=== PATIENT | male | born 1955 | race African-American/Black ===

== ENCOUNTER → 2016-07-15 | Outpatient (CLI) | payer BC, OTHER ==
[~2016-07-15] MED LIST: REGADENOSON INJ 0.4 MG/5 ML DISP.SYRIN IV ONE
--- NOTE | 2016-07-15 18:39 | DRAGON STRESS TEST REPORT ---
INTRAVENOUS LEXISCAN CARDIOLITE STRESS TEST USING SINGLE PHOTON EMMISION COMPUTERIZED TOMOGRAPHIC. DATE OF PROCEDURE: July 15, 2016 INDICATION : Chest pain CARDIAC RISK FACTORS: Diabetes, hypertension RESTING EKG: Sinus rhythm, no Baseline ST segment changes STRESS EKG: No significant changes noted with LexiScan bolus REASON FOR TERMINATION: Protocol. PROCEDURE REPORT: Baseline heart rate 67 beats per minute with blood pressure of on 135/86. Patient had no significant complaints. Heart rate at 2 minutes post bolus 76 with a blood pressure of 144/78. 3 minutes post bolus heart rate 69 with blood pressure of 141/80. No significant EKG changes were noted. Patient had no significant complaints during the procedure or postprocedure. CONCLUSIONS: Normal EKG and hemodynamic response to IV LexiScan. NUCLEAR DATA: At rest the patient was given 15.81 millicuries of technetium 99 sestamibi injected intravenously. As per protocol rest gated SPECT images were obtained. Subsequently the patient was given intravenous LexiScan at a dose of 0.4 mg in 5 mL intravenously, followed by flush with normal saline. Subsequently the stress dose of 45.6 millicuries of technetium 99 sestamibi was injected intravenously. As per protocol stress gated images were obtained. NUCLEAR INTERPRETATION: Both raw and processed data were used for interpretation. Visual, qualitative, computer-generated quantitative data was used. There was good myocardial uptake of technetium compound. Motion artifact and soft tissue attenuations were noted. Increased visceral uptake was noted. No definitive areas of transient perfusion defect noted. No definitive areas of fixed perfusion defect or scars noted. EKG gated imaging showed LV EF at 65 %, rest and stress gated EF similar visually. T. I D. ratio was 0.95. Lung heart ratio noted to be within normal limits 0.30. No significant extracardiac and abnormal radiotracer activities were noted. RV free wall uptake was noted to be mildly increased. IMPRESSION: Also refer to comments under nuclear interpretation. Also test results needs to be interpreted in the context of pretest probability. 1. There is no definitive scintigraphic evidence of LexiScan induced myocardial ischemia. 2. There is no definitive scintigraphic evidence of myocardial infarction/scar. 3. EKG gated imaging shows left ejection fraction of approximately 65 %. 4. Clinical correlation requested as occasionally single vessel disease or balanced ischemia could be missed. In approximately 10% of the cases Lexiscan may not cause adequate vasodilatory stress. RECOMMENDATIONS: Aggressive risk factor modification, medical therapy. Clinical correlation with echocardiogram derived ejection fraction. Inability to exercise by itself can lead to increased cardiovascular event risks. Consider cardiology consultation if clinically indicated. I AM AVAILABLE FOR CARDIOLOGY CONSULTATION AND FOLLOWUP IF REQUESTED BY PMD Marianela Buckner M.D., [facility] Consumer Services Consultant scale attendant, Board certified in cardiovascular diseases, Nuclear cardiology, Echocardiography Cardiac CT and cardiac MRI Ph. [phone] [facility]
== END ==
LOC: RAD 06:50
PROVIDERS: ATTEND Specialist
DX: Z01.810 Encounter for preprocedural cardiovascular examination (principal); R07.9 Chest pain, unspecified
CPT/HCPCS: 93017; 78452; A9500; J2785; Q9969

== ENCOUNTER → 2016-08-26 | Outpatient (CLI) | payer BC, OTHER ==
[2016-08-26 10:59] LABS: ABSOLUTE BASOPHILS # (AUTO) 0.1 10^3/uL (0.0-0.2); ABSOLUTE EOSINOPHILS # (AUTO) 0.1 10^3/uL (0.0-0.6); ABSOLUTE LYMPHOCYTES (AUTO) 3.6 10^3/uL (0.5-4.7); ABSOLUTE MONOCYTES (AUTO) 0.8 10^3/uL (0.1-1.4); ABSOLUTE NEUT (AUTO) 3.2 10^3/uL (1.7-8.2); BASOPHILS % (AUTO) 0.9 % (0-2); EOSINOPHILS % (AUTO) 1.8 % (0-6); HEMATOCRIT 48.7 % (37.9-51.0); HEMOGLOBIN 16.1 g/dL (13.5-17.0); HGB HCT DIFFERENCE -0.4; LYMPHOCYTES % (AUTO) 45.5 % (13-45); MEAN CORPUSCULAR HEMOGLOBIN 27.3 pg (27.0-33.4); MEAN CORPUSCULAR VOLUME 83 fl (80-97); MONOCYTES % (AUTO) 10.7 % (3-13); RED BLOOD COUNT 5.88 10^6/uL (4.35-5.55); RED CELL DISTRIBUTION WIDTH 15.9 % (11.5-14.0); SEGMENTED NEUTROPHILS % (AUTO) 41.1 % (42-78); WHITE BLOOD COUNT 7.9 10^3/uL (4.0-10.5)
[2016-08-26 11:01] LABS: APPEARANCE,URINE CLEAR; BILIRUBIN,URINE NEGATIVE (NEGATIVE); GLUCOSE, URINE NEGATIVE (NEGATIVE); KETONES,URINE NEGATIVE (NEGATIVE); LEUKOCYTE ESTERASE,URINE NEGATIVE (NEGATIVE); NITRITE,URINE NEGATIVE (NEGATIVE); PROTEIN,URINE NEGATIVE (NEGATIVE); URINE SPECIFIC GRAVITY 1.017
[2016-08-26 11:21] LABS: ANION GAP 11 (5-19); BLOOD UREA NITROGEN 15 mg/dL (7-20); CALCIUM 9.9 mg/dL (8.4-10.2); CARBON DIOXIDE 26 mmol/L (22-30); CHLORIDE 104 mmol/L (98-107); CREATININE RESULT 0.92 mg/dL (0.52-1.25); GLUCOSE 135 mg/dL (75-110); POTASSIUM 4.4 mmol/L (3.6-5.0); SODIUM 141.3 mmol/L (137-145)
== END ==
LOC: OD 09:42
PROVIDERS: ATTEND Orthopaedic Surgery
DX: Z01.811 Encounter for preprocedural respiratory examination (principal); Z01.812 Encounter for preprocedural laboratory examination; Z01.818 Encounter for other preprocedural examination; Z79.899 Other long term (current) drug therapy; E11.9 Type 2 diabetes mellitus without complications
CPT/HCPCS: 36415; 71020; 80048; 81001; 83036; 85025

== ENCOUNTER 2016-09-28 07:43 | Inpatient (IN) | payer OTHER ==
[2016-09-17 13:32] LABS: HEMATOCRIT 47.5 % (37.9-51.0); HEMOGLOBIN 15.6 g/dL (13.5-17.0); HGB HCT DIFFERENCE -0.7; MEAN CORPUSCULAR HEMOGLOBIN 28.1 pg (27.0-33.4); MEAN CORPUSCULAR HGB CONC 32.9 g/dL (32.0-36.0); MEAN CORPUSCULAR VOLUME 85 fl (80-97); RED BLOOD COUNT 5.57 10^6/uL (4.35-5.55); WHITE BLOOD COUNT 9.9 10^3/uL (4.0-10.5)
[2016-09-17 13:37] LABS: APPEARANCE,URINE CLEAR; BILIRUBIN,URINE NEGATIVE (NEGATIVE); GLUCOSE, URINE NEGATIVE (NEGATIVE); KETONES,URINE NEGATIVE (NEGATIVE); LEUKOCYTE ESTERASE,URINE NEGATIVE (NEGATIVE); NITRITE,URINE NEGATIVE (NEGATIVE); PROTEIN,URINE NEGATIVE (NEGATIVE); URINE SPECIFIC GRAVITY 1.011
[2016-09-17 13:47] LABS: ANION GAP 17 (5-19); BLOOD UREA NITROGEN 16 mg/dL (7-20); CALCIUM 9.8 mg/dL (8.4-10.2); CARBON DIOXIDE 23 mmol/L (22-30); CHLORIDE 100 mmol/L (98-107); CREATININE RESULT 0.95 mg/dL (0.52-1.25); GLUCOSE 206 mg/dL (75-110); POTASSIUM 4.1 mmol/L (3.6-5.0); SODIUM 139.7 mmol/L (137-145)
--- NOTE | 2016-09-17 15:45 | EKG REPORT ---
SEVERITY:- ABNORMAL ECG - SINUS ARRHYTHMIA, RATE 50-65 PROBABLE INFERIOR INFARCT, AGE INDETERMINATE : Confirmed by: Yuliet Moya MD 17-Sep-2016 15:43:59
[~2016-09-28 07:43] MED LIST changes: +IBUPROFEN 800 MG/NS 250 ML IV PRN; +LACTATED RINGERS 1000 ML IV PRN; +LANSOPRAZOLE 15 MG TAB.RAP.DR PO PRN; +LIDOCAINE 0.5% INJ-PF (5 MG/ML) 50 ML SDV SUBCUT PRN; +OXYCODONE HCL SR 10 MG TABLET PO PRN; -REGADENOSON INJ 0.4 MG/5 ML DISP.SYRIN IV ONE; +SCOPOLAMINE HYDROBROMIDE 1.5 MG PATCH.TD72 TOP PRN
[2016-10-05] MEDS ORDERED: LANSOPRAZOLE 15 MG TAB.RAP.DR PO PRN (05:00)
[2016-10-05] MEDS ORDERED: SCOPOLAMINE HYDROBROMIDE 1.5 MG PATCH.TD72 TOP PRN (05:00)
[2016-10-05] MEDS ORDERED: VANCOMYCIN HCL 1,000 MG in DEXTROSE 5%-WATER 250 ML IV PRN (05:00)
[2016-10-05] MEDS ORDERED: LIDOCAINE 0.5% INJ-PF (5 MG/ML) 50 ML SDV SUBCUT PRN (05:00)
[2016-10-05] MEDS ORDERED: LACTATED RINGERS 1000 ML IV PRN (05:00)
[2016-10-05] MEDS ORDERED: OXYCODONE HCL SR 10 MG TABLET PO PRN (05:00)
[2016-10-05] MEDS ORDERED: BUPIVACAINE INJ/PF LIPOSOME/PF 266 MG/20 ML SDV IJ PRN (05:00)
[2016-10-05] MEDS ORDERED: IBUPROFEN 800 MG/NS 250 ML IV PRN ×2 (05:00)
[2016-10-05] MEDS ORDERED: CEFAZOLIN INJ 1 GM VIAL IV PRN (05:00)
[2016-10-05 06:17] LABS: PROTHROMBIN TIME 12.4 SEC (11.4-15.4)
[2016-10-05 06:18] LABS: PARTIAL THROMBOPLASTIN TIME 24.5 SEC (23.5-35.8)
[2016-10-05 06:36] LABS: POTASSIUM 4.3 mmol/L (3.6-5.0)
[2016-10-05] MEDS ORDERED: THROMBIN (BOVINE) 5000 UNIT EPITAXIS KIT ONE (06:46)
[2016-10-05] MEDS ORDERED: THROMBIN (BOVINE) TOPICAL 20000 UNIT VIAL ONE (06:46)
[2016-10-05] MEDS ORDERED: BUPIVACAINE INJ/PF LIPOSOME/PF 266 MG/20 ML SDV ONE (06:47)
[2016-10-05] MEDS ORDERED: FENTANYL CITRATE INJ/PF 100 MCG/2 ML AMPUL ONE (06:52)
[2016-10-05] MEDS ORDERED: ONDANSETRON HCL INJ/PF 4 MG/2 ML SDV ONE (06:52)
[2016-10-05] MEDS ORDERED: DEXAMETHASONE SOD PHOSPHATE INJ 4 MG/1 ML VIAL ONE (06:52)
[2016-10-05] MEDS ORDERED: MIDAZOLAM 2 MG/2 ML INJ ONE (06:52)
[2016-10-05] MEDS ORDERED: MORPHINE SULFATE 10 MG/ML INJ ONE (06:53)
[2016-10-05] MEDS ORDERED: TRANEXAMIC ACID INJ/PF 1,000 MG/10 ML SDV IV ONE (06:53)
[2016-10-05] MEDS ORDERED: PROPOFOL INJ 200 MG/20 ML VIAL IV ONE (06:53)
[2016-10-05] MEDS ORDERED: FENTANYL CITRATE INJ/PF 100 MCG/2 ML AMPUL IV PRN ×3 (08:13)
[2016-10-05] MEDS ORDERED: DIPHENHYDRAMINE HCL 50 MG/ML VIAL IV PRN ×2 (08:13→08:55)
[2016-10-05] MEDS ORDERED: MEPERIDINE HCL/PF INJ 25 MG/1 ML DISP.SYRIN IV PRN (08:13)
[2016-10-05] MEDS ORDERED: PROMETHAZINE HCL INJ 25 MG/1 ML VIAL IV PRN ×2 (08:13)
[2016-10-05] MEDS ORDERED: MORPHINE SULFATE 10 MG/ML INJ IV PRN ×3 (08:13→08:55)
--- NOTE | 2016-10-05 08:54 | Operative Report ---
Operative Report DATE OF SURGERY: 10/05/16 PREOPERATIVE DIAGNOSIS: Right knee arthritis OPERATION: Right knee arthroplasty SURGEON: RAIZA BELTRAN ANESTHESIA: Spinal TISSUE REMOVED OR ALTERED: Bone to pathology ESTIMATED BLOOD LOSS: 100 PROCEDURE: Implants used: Femur: Striker sanalon #7 CR femur Tibia:, Her 7 tibia Tibial liner:, 9 mm CS insert Patella: 38 mm oval patella Procedure with the patient supine on the operating table the right the limb is prepped and draped in a sterile fashion. The limb was elevated for exsanguination and the tourniquet inflated to 280 torr. A standard midline median parapatellar approach the knee is taken. Access is gained to the femoral canal through the intercondylar notch. Intramedullary alignment instrumentation used to resect 10 mm of distal femur in 5 of valgus. Sizing guide indicated a size 7 femur. Appropriate cutting jig is then used to fashion anterior posterior and chamfer cuts. A trial reduction femurs performed and this is judged to be adequate. Attention was next turned to the tibia. Using an extra medullary alignment system 9 millimeters was resected off the lateral tibial plateau. This is sized to a size 7 tibia. A trial reduction was now performed with a 7 femur and a 7 tibia using a 9 millimeters spacer. It is full extension and central patellofemoral tracking. The articular surface the patella was next resected using an oscillating saw. All trial implants were removed. Polymethylmethacrylate is mixed and used to cement the above implants in place. On adequate curing the cement excess cement was removed the tourniquet was deflated hemostasis obtained the wound is then closed in layers using interrupted Vicryl followed by isha. A sterile compressive dressing was applied and the patient returned to recovery room in satisfactory condition.
[2016-10-05] MEDS ORDERED: ACETAMINOPHEN 325 MG TABLET PO PRN (08:55)
[2016-10-05] MEDS ORDERED: RINGERS SOLUTION,LACTATED 1,000 ML IV PRN (08:55)
[2016-10-05] MEDS ORDERED: ONDANSETRON HCL INJ/PF 4 MG/2 ML SDV IV PRN (08:55)
[2016-10-05] MEDS ORDERED: MAG HYDROX/AL HYDROX/SIMETH SUSP 30 ML UDCUP PO PRN (08:55)
[2016-10-05] MEDS ORDERED: ONDANSETRON 4 MG TAB.RAPDIS PO PRN (08:55)
[2016-10-05] MEDS ORDERED: ZOLPIDEM TARTRATE 5 MG TABLET PO PRN (08:55)
[2016-10-05] MEDS ORDERED: DEXTROSE 50%-WATER SYRINGE 12.5 GM/25 ML DOSE IV PRN (09:28)
[2016-10-05] MEDS ORDERED: DEXTROSE 40% GEL 15 GM TUBE PO PRN (09:28)
[2016-10-05] MEDS ORDERED: GLUCAGON,HUMAN RECOMB 1 MG INJ IM PRN (09:28)
[2016-10-05] MEDS ORDERED: DEXTROSE 40% GEL 15 GM TUBE X 2 PO PRN (09:28)
[2016-10-05] MEDS ORDERED: INSULIN LISPRO 100 UNIT/ML 3 ML VIAL SUBCUT PRN (09:28)
[2016-10-05] MEDS ORDERED: DEXTROSE 50%-WATER SYRINGE 25 GM/50 ML DOSE IV PRN (09:28)
[2016-10-05] MEDS: MORPHINE SULFATE 10 MG/ML INJ IM PRN ×3 (11:58→18:57)
[2016-10-05] MEDS: OXYCODONE HCL IR 5 MG TABLET PO PRN (13:31)
--- NOTE | 2016-10-05 15:33 | PDOC CONSULTATION ---
Consultation Consult Date: 10/05/16 Attending physician:: RAIZA BELTRNA Consult reason:: Postoperative medical management History of Present Illness Admission Date/PCP: 10/05/16 05:14 ROSEANNE CONN History of Present Illness: DONALD BO is a 60 year old -[place]ag[place] male with a past medical history of atrial fibrillation, obesity, osteoarthritis coronary artery disease , hyperlipidemia, obstructive sleep apnea, and diabetes mellitus type II. The patient was admitted for right knee replacement. In the patient's extensive past medical history the hospitalist been consult did aid in management. The patient is currently lying in bed. The patient denies any nausea, vomiting , diarrhea, shortness of breath, dizziness, chest pain, heart palpitations, fevers, or chills. The patient does admit to pain in the operative knee. The patient has remained afebrile. Blood pressures have been in a good range. The patient voices no other concerns at this time. Past Medical History Cardiac Medical History: Reports: Atrial Fibrillation, Congestive Heart Failure - Diastolic dysfunction, Coronary Artery Disease, Myocardial Infarction - [place] 2011, Hyperlipidema, Hypertension Pulmonary Medical History: Reports: Bronchitis, Pneumonia, Sleep Apnea - uses CPAP, had throat/chin surgery d/t Sleep Apnea Endocrine Medical History: Reports: Diabetes Mellitus Type 2 Malignancy Medical History: GI Medical History: Reports: Gastroesophageal Reflux Disease, Hiatal Hernia Musculoskeltal Medical History: Reports: Arthritis Psychiatric Medical History: Reports: Depression, Post Traumatic Stress Disorder Past Surgical History Past Surgical History: Reports: Cardiac Catheterization, Coronary Stent - x2 2011, Orthopedic Surgery, Tonsillectomy - and adenoids Social History Information Source: Patient Occupation: Retired Lives with: Spouse/Significant other Smoking Status: Former Smoker Cigarettes Packs Per Day: 0.5 Frequency of Alcohol Use: None Hx Recreational Drug Use: No Drugs: None Hx Prescription Drug Abuse: No - Advance Directive Resuscitation Status: Full Code Surrogate healthcare decision maker:: His Elisabeth Bo Family History Family History: Reviewed & Not Pertinent, CAD, Other - Mother lived to be 94. Father 68 Parental Family History Reviewed: Yes Children Family History Reviewed: Yes Sibling(s) Family History Reviewed.: Yes Medication/Allergy Home Medications: Acetaminophen 500 mg PO DAILY PRN 09/15/16 Amlodipine Besylate 5 mg PO QPM 09/15/16 Atorvastatin Calcium [Lipitor 10 mg Tablet] 10 mg PO QHS 04/04/17 Hydrochlorothiazide 25 mg PO QPM 09/15/16 Lisinopril 20 mg PO QPM 09/15/16 Meloxicam [Mobic 15 mg Tablet] 15 mg PO DAILY PRN 09/15/16 Metformin HCl [Glucophage XR 500 mg Tablet] 500 mg PO QPM 09/15/16 Metoprolol Tartrate 75 mg PO QPM 09/15/16 Omeprazole 40 mg PO QPM 09/15/16 Tramadol HCl 50 mg PO DAILY PRN 09/15/16 Warfarin Sodium [Coumadin 7.5 mg Tablet] 7.5 mg PO QPM 09/15/16 Allergies/Adverse Reactions: typhoid vaccine [Typhoid Vaccine] Allergy (Severe, Verified 07/23/15 12:22) Seizures Review of Systems Constitutional: ABSENT: chills, fever(s), headache(s), weight gain, weight loss Eyes: ABSENT: visual disturbances Ears: ABSENT: hearing changes Cardiovascular: ABSENT: chest pain, dyspnea on exertion, edema, orthropnea, palpitations Respiratory: ABSENT: cough, hemoptysis Gastrointestinal: ABSENT: abdominal pain, constipation, diarrhea, hematemesis, hematochezia, nausea, vomiting Genitourinary: ABSENT: dysuria, hematuria Musculoskeletal: PRESENT: other - Knee pain. ABSENT: joint swelling Integumentary: ABSENT: rash, wounds Neurological: ABSENT: abnormal gait, abnormal speech, confusion, dizziness, focal weakness, syncope Psychiatric: ABSENT: anxiety, depression, homidical ideation, suicidal ideation Endocrine: ABSENT: cold intolerance, heat intolerance, polydipsia, polyuria Hematologic/Lymphatic: ABSENT: easy bleeding, easy bruising Physical Exam Vital Signs: Temp Pulse Resp BP Pulse Ox 97.4 F 61 16 111/81 97 10/05/16 13:10 10/05/16 13:10 10/05/16 13:10 10/05/16 13:10 10/05/16 13:10 Intake & Output 10/03/16 10/04/16 10/05/16 23:59 23:59 23:59 Intake Total 3458 Output Total 2450 Balance 1008 General appearance: PRESENT: no acute distress, cooperative, well-developed, well-nourished Head exam: PRESENT: atraumatic, normocephalic Eye exam: PRESENT: conjunctiva pink, EOMI, PERRLA. ABSENT: scleral icterus Ear exam: PRESENT: normal external ear exam Mouth exam: PRESENT: moist, tongue midline Neck exam: ABSENT: carotid bruit, JVD, lymphadenopathy, thyromegaly Respiratory exam: PRESENT: clear to auscultation dania, symmetrical, unlabored. ABSENT: rales, rhonchi, tachypnea, wheezes Cardiovascular exam: PRESENT: RRR. ABSENT: diastolic murmur, rubs, systolic murmur Pulses: PRESENT: normal dorsalis pedis pul Vascular exam: PRESENT: normal capillary refill GI/Abdominal exam: PRESENT: normal bowel sounds, soft. ABSENT: distended, guarding, mass, organolmegaly, rebound, tenderness Rectal exam: PRESENT: deferred Extremities exam: PRESENT: full ROM. ABSENT: calf tenderness, clubbing, pedal edema Neurological exam: PRESENT: alert, awake, oriented to person, oriented to place , oriented to time, oriented to situation, CN II-XII grossly intact. ABSENT: motor sensory deficit Psychiatric exam: PRESENT: appropriate affect, normal mood. ABSENT: homicidal ideation, suicidal ideation Skin exam: PRESENT: dry, intact, warm. ABSENT: cyanosis, rash Results Laboratory Results: 09/17/16 12:38 10/05/16 05:58 10/05/16 05:58 Potassium 4.3 Glucose 151 H Impressions: Knee X-Ray 10/05/16 08:57 IMPRESSION: Total knee arthroplasty in good position. Assessment & Plan - Diagnosis (1) S/P right knee arthroscopy Is this a current diagnosis for this admission?: YesPlan: As per orthopedics (2) Atrial fibrillation with RVR Is this a current diagnosis for this admission?: YesPlan: Resume the patient's home medications. The patient chose to go with warfarin as he did not feel comfortable taking Xarelto for his A. fib. Will discontinue Xarelto prophylaxis and transition back to warfarin. Will add a Lovenox bridge. (3) CAD (coronary artery disease) Qualifiers: Coronary Disease-Associated Artery/Lesion type: unspecified vessel or lesion type [place] vs. transplanted heart: [place] heart Associated angina: without angina Qualified Code(s): I25.10 - Atherosclerotic heart disease of [place] coronary artery without angina pectoris Is this a current diagnosis for this admission?: YesPlan: Will continue home medications. (4) GERD (gastroesophageal reflux disease) Qualifiers: Esophagitis presence: without esophagitis Qualified Code(s): K21.9 - Gastro-esophageal reflux disease without esophagitis Is this a current diagnosis for this admission?: YesPlan: Will continue home medications. (5) Hypercholesteremia Is this a current diagnosis for this admission?: YesPlan: Will continue home medications. (6) Diabetes mellitus type 2 in obese Is this a current diagnosis for this admission?: YesPlan: Will continue sliding scale coverage before meals at bedtime and resume home medications when this the patient is eating by mouth (7) Diastolic dysfunction Is this a current diagnosis for this admission?: YesPlan: The patient appears optivolemic (8) RADHA on CPAP Is this a current diagnosis for this admission?: YesPlan: Will continue home settings - Time Time Spent: 50 to 70 Minutes Medications reviewed and adjusted accordingly: Yes Anticipated discharge: Home Within: Other Disposition: The patient is a full code. Pending patient's symptomatology and diagnostic findings will reevaluate in the a.m.
[2016-10-05] MEDS: MORPHINE SULFATE 10 MG/ML INJ IV PRN (16:52)
[2016-10-05] MEDS ORDERED: (PENDING PHARMACY ID) (Metformin Hcl [Glucophage Xr 500 Mg Tablet] 500 MG) PO SCH (18:00)
[2016-10-05] MEDS ORDERED: (PENDING PHARMACY ID) (Warfarin Sodium 7.5 MG) PO SCH (18:00)
[2016-10-05] MEDS ORDERED: (PENDING PHARMACY ID) (Lisinopril [Lisinopril] 20 MG) PO SCH (18:00)
[2016-10-05] MEDS ORDERED: METOPROLOL TARTRATE 75 MG PO SCH (18:00)
[2016-10-05] MEDS: METOPROLOL SUCCINATE 25 MG TAB.SR.24H PO SCH (18:58)
[2016-10-05] MEDS: METFORMIN HCL 500 MG TABLET PO SCH (18:58)
[2016-10-05] MEDS: HYDROCHLOROTHIAZIDE 25 MG TABLET PO SCH (18:58)
[2016-10-05] MEDS: OXYCODONE HCL SR 10 MG TABLET PO SCH (18:58)
[2016-10-05] MEDS: PREGABALIN 75 MG CAPSULE PO SCH (18:58)
[2016-10-05] MEDS: AMLODIPINE BESYLATE 5 MG TABLET PO SCH (19:09)
[2016-10-05] MEDS: LISINOPRIL 10 MG TABLET PO SCH (19:09)
[2016-10-05] MEDS: IBUPROFEN 800 MG in NORMAL SALINE 250 ML IV SCH (20:02)
[2016-10-05] MEDS ORDERED: VANCOMYCIN HCL 1,000 MG in DEXTROSE 5%-WATER 250 ML IV ONE (21:00)
[2016-10-05] MEDS ORDERED: RIVAROXABAN 10 MG TABLET PO SCH (22:00)
[2016-10-05] MEDS: ENOXAPARIN SODIUM INJ 150 MG/1 ML DISP.SYRIN SUBCUT SCH (22:46)
[2016-10-05] MEDS: WARFARIN SODIUM 5 MG TABLET PO SCH (22:47)
[2016-10-05] MEDS: ATORVASTATIN CALCIUM 10 MG TABLET PO SCH (22:47)
[2016-10-06] MEDS: IBUPROFEN 800 MG in NORMAL SALINE 250 ML IV SCH ×3 (02:55→17:40)
[2016-10-06 04:07] LABS: HEMATOCRIT 39.3 % (37.9-51.0); HEMOGLOBIN 13.2 g/dL (13.5-17.0); HGB HCT DIFFERENCE 0.3; MEAN CORPUSCULAR HEMOGLOBIN 28.6 pg (27.0-33.4); MEAN CORPUSCULAR HGB CONC 33.6 g/dL (32.0-36.0); MEAN CORPUSCULAR VOLUME 85 fl (80-97); RED BLOOD COUNT 4.62 10^6/uL (4.35-5.55); RED CELL DISTRIBUTION WIDTH 13.6 % (11.5-14.0)
[2016-10-06 04:32] LABS: PROTHROMBIN TIME 13.6 SEC (11.4-15.4)
[2016-10-06 04:34] LABS: ANION GAP 12 (5-19); BLOOD UREA NITROGEN 17 mg/dL (7-20); CARBON DIOXIDE 26 mmol/L (22-30); CHLORIDE 100 mmol/L (98-107); CREATININE RESULT 1.08 mg/dL (0.52-1.25); GLUCOSE 147 mg/dL (75-110); POTASSIUM 4.3 mmol/L (3.6-5.0); SODIUM 137.8 mmol/L (137-145)
[2016-10-06] MEDS: LANSOPRAZOLE 30 MG TAB.RAP.DR PO SCH (05:57)
[2016-10-06] MEDS: OXYCODONE HCL SR 10 MG TABLET PO SCH ×2 (05:57→17:34)
--- NOTE | 2016-10-06 07:02 | PDOC PROGRESS REPORT ---
Subjective Progress Note for:: 10/06/16 Subjective:: Patient had complaints of pain last night but these up resolve with additional medication. Physical Exam Vital Signs: Temp Pulse Resp BP Pulse Ox 36.4 C 68 20 122/62 99 10/06/16 04:00 10/06/16 04:00 10/06/16 04:00 10/06/16 04:00 10/06/16 04:00 Intake & Output 10/05/16 10/06/16 10/07/16 06:59 06:59 06:59 Intake Total 0 5158 Output Total 4950 Balance 0 208 General appearance: PRESENT: no acute distress Head exam: PRESENT: normocephalic Respiratory exam: PRESENT: unlabored Cardiovascular exam: PRESENT: RRR Pulses: PRESENT: +1 pedal pulses bilateral Vascular exam: PRESENT: normal capillary refill GI/Abdominal exam: PRESENT: soft Rectal exam: PRESENT: deferred Extremities exam: PRESENT: other - Right lower extremity dressing clean dry and intact. Distal neurovascular examinations intact. Neurological exam: PRESENT: alert, awake, oriented to person, oriented to place , oriented to time, oriented to situation. ABSENT: motor sensory deficit Psychiatric exam: PRESENT: appropriate affect, normal mood. ABSENT: homicidal ideation, suicidal ideation Skin exam: PRESENT: dry, intact, warm. ABSENT: cyanosis, rash Results Laboratory Results: 10/06/16 03:58 10/06/16 03:58 10/06/16 10/06/16 03:58 03:58 WBC 13.0 H RBC 4.62 Hgb 13.2 L Hct 39.3 MCV 85 MCH 28.6 MCHC 33.6 RDW 13.6 Plt Count 204 Sodium 137.8 Potassium 4.3 Chloride 100 Carbon Dioxide 26 Anion Gap 12 BUN 17 Creatinine 1.08 Est GFR ( Amer) > 60 Est GFR (Non-Af Amer) > 60 Glucose 147 H Calcium 9.0 Impressions: Knee X-Ray 10/05/16 08:57 IMPRESSION: Total knee arthroplasty in good position. Status: Imported from PACS Assessment & Plan - Diagnosis (1) Arthritis of right knee Is this a current diagnosis for this admission?: YesPlan: 60-year-old black male, postop day 1 from right knee arthroplasty. Pain is better controlled. Patient related 30 feet yesterday. He's been restarted on his warfarin with a Lovenox bridge. - Time Time Spent with patient: 15-24 minutes Anticipated discharge: Home with Homehealth Within: within 24 hours
[2016-10-06] MEDS: OXYCODONE HCL IR 5 MG TABLET PO PRN ×3 (08:14→21:31)
[2016-10-06] MEDS: SENNOSIDES/DOCUSATE 8.6-50 MG 1 EACH TABLET PO SCH ×2 (09:54→17:39)
[2016-10-06] MEDS: ENOXAPARIN SODIUM INJ 150 MG/1 ML DISP.SYRIN SUBCUT SCH ×2 (09:54→21:31)
[2016-10-06] MEDS: PREGABALIN 75 MG CAPSULE PO SCH ×2 (09:54→17:38)
[2016-10-06] MEDS: PRENATAL VITAMIN W-O CA NO5/FE FUMARATE/FA CAPSULE PO SCH (09:55)
[2016-10-06] MEDS: METFORMIN HCL 500 MG TABLET PO SCH ×2 (09:55→17:33)
[2016-10-06] MEDS: HYDROCHLOROTHIAZIDE 25 MG TABLET PO SCH (17:34)
[2016-10-06] MEDS: LISINOPRIL 10 MG TABLET PO SCH (17:37)
[2016-10-06] MEDS: METOPROLOL SUCCINATE 25 MG TAB.SR.24H PO SCH (17:38)
[2016-10-06] MEDS: AMLODIPINE BESYLATE 5 MG TABLET PO SCH (17:39)
[2016-10-06] MEDS: ATORVASTATIN CALCIUM 10 MG TABLET PO SCH (21:31)
[2016-10-06] MEDS: WARFARIN SODIUM 5 MG TABLET PO SCH (21:31)
[2016-10-07] MEDS: IBUPROFEN 800 MG in NORMAL SALINE 250 ML IV SCH ×2 (02:06→10:25)
[2016-10-07] MEDS: OXYCODONE HCL IR 5 MG TABLET PO PRN ×2 (04:22→11:07)
[2016-10-07 04:30] LABS: HEMATOCRIT 38.9 % (37.9-51.0); HEMOGLOBIN 13.2 g/dL (13.5-17.0); HGB HCT DIFFERENCE 0.7; MEAN CORPUSCULAR HGB CONC 33.9 g/dL (32.0-36.0); MEAN CORPUSCULAR VOLUME 85 fl (80-97); RED BLOOD COUNT 4.56 10^6/uL (4.35-5.55); WHITE BLOOD COUNT 14.6 10^3/uL (4.0-10.5)
[2016-10-07 05:01] LABS: ANION GAP 13 (5-19); BLOOD UREA NITROGEN 18 mg/dL (7-20); CALCIUM 9.4 mg/dL (8.4-10.2); CARBON DIOXIDE 25 mmol/L (22-30); CHLORIDE 100 mmol/L (98-107); CREATININE RESULT 1.31 mg/dL (0.52-1.25); GLUCOSE 144 mg/dL (75-110); POTASSIUM 4.3 mmol/L (3.6-5.0); SODIUM 138.4 mmol/L (137-145)
[2016-10-07] MEDS: OXYCODONE HCL SR 10 MG TABLET PO SCH (05:51)
[2016-10-07] MEDS: LANSOPRAZOLE 30 MG TAB.RAP.DR PO SCH (05:51)
--- NOTE | 2016-10-07 07:02 | PDOC DISCHARGE SUMMARY ---
General - Admit/Disc Date/PCP Admission Date/Primary Care Provider: 10/05/16 05:14 ROSEANNE CONN Discharge Date: 10/07/16 - Discharge Diagnosis (1) Arthritis of right knee Is this a current diagnosis for this admission?: Yes - Additional Information Resuscitation Status: Full Code Discharge Diet: As Tolerated, Regular Discharge Activity: Balance Activity w/Rest Home Medications: Acetaminophen 500 mg PO DAILY PRN 09/15/16 Amlodipine Besylate 5 mg PO QPM 09/15/16 Atorvastatin Calcium [Lipitor 10 mg Tablet] 10 mg PO QHS 09/15/16 Hydrochlorothiazide 25 mg PO QPM 09/15/16 Lisinopril 20 mg PO QPM 09/15/16 Meloxicam [Mobic 15 mg Tablet] 15 mg PO DAILY PRN 09/15/16 Metformin HCl [Glucophage XR 500 mg Tablet] 500 mg PO QPM 09/15/16 Metoprolol Tartrate 75 mg PO QPM 09/15/16 Omeprazole 40 mg PO QPM 09/15/16 Tramadol HCl 50 mg PO DAILY PRN 09/15/16 Warfarin Sodium [Coumadin 7.5 mg Tablet] 7.5 mg PO QPM 09/15/16 Oxycodone HCl [Oxy-Ir 5 mg Tablet] 5 mg PO Q6HP PRN #0 tablet 10/07/16 Warfarin Sodium [Coumadin 5 mg Tablet] 10 mg PO QHS #0 tablet 10/07/16 History of Present Illness History of Present Illness: DONALD ELDER is a 60 year old male progressive right knee pain and functional disability secondary osteoarthritis. Minute for elective right knee arthroplasty. Hospital Course Hospital Course: Submitted to the operating room where he undergoes an incompetent a right knee arthroplasty. His returned to floor in satisfactory condition. His anticoagulation is bridged with Lovenox and his Coumadin is restarted. At the time of discharge his INR has not yet bumped. Pain control is mildly problematic and the patient continues to pain of pain but makes excellent progress with physical therapy in terms of range of motion. Peak addressed remains clean dry and intact. Distal neurovascular examinations intact. Physical Exam Vital Signs: Temp Pulse Resp BP Pulse Ox 36.9 C 58 L 19 117/57 L 94 10/07/16 03:27 10/07/16 03:27 10/07/16 03:27 10/07/16 03:27 10/07/16 03:27 Intake & Output 10/05/16 10/06/16 10/07/16 06:59 06:59 06:59 Intake Total 0 5158 4020 Output Total 4950 2800 Balance 0 208 1220 General appearance: PRESENT: no acute distress Head exam: PRESENT: normocephalic Respiratory exam: PRESENT: unlabored Cardiovascular exam: PRESENT: RRR Pulses: PRESENT: +1 pedal pulses bilateral Vascular exam: PRESENT: normal capillary refill GI/Abdominal exam: PRESENT: soft Rectal exam: PRESENT: deferred Extremities exam: PRESENT: other - Right lower extremity papo dressing is clean dry and intact. Neurological exam: PRESENT: alert, awake, oriented to person, oriented to place , oriented to time, oriented to situation. ABSENT: motor sensory deficit Psychiatric exam: PRESENT: appropriate affect, normal mood. ABSENT: homicidal ideation, suicidal ideation Skin exam: PRESENT: dry, intact, warm. ABSENT: cyanosis, rash Results Laboratory Results: 10/07/16 04:11 10/07/16 04:11 10/07/16 10/07/16 04:11 04:11 WBC 14.6 H RBC 4.56 Hgb 13.2 L Hct 38.9 MCV 85 MCH 29.0 MCHC 33.9 RDW 14.0 Plt Count 210 Sodium 138.4 Potassium 4.3 Chloride 100 Carbon Dioxide 25 Anion Gap 13 BUN 18 Creatinine 1.31 H Est GFR ( Amer) > 60 Est GFR (Non-Af Amer) 56 L Glucose 144 H Calcium 9.4 Impressions: Knee X-Ray 10/05/16 08:57 IMPRESSION: Total knee arthroplasty in good position. Status: Imported from PACS Plan Discharge Plan: Patient will be discharged home with home health nursing, home health physical therapy, we'll Walker, bedside commode. Visiting nurse service, we'll change the right lower extremity papo dressing on postop day 7, and replace it with an OpSite. The patient will continue to receive Lovenox 30 mg subcutaneous twice a day until his INR has reached 2.0. Using nurse service to draw and submit coagulation labs daily until this transition occurs. Results to be communicated with Dr. Wilder Follow-up we will be with Dr. Wilder in the [facility] for surgery for staple removal in approximately 2 weeks.
[2016-10-07] MEDS: MORPHINE SULFATE 10 MG/ML INJ IV PRN (07:46)
[2016-10-07] MEDS: MORPHINE SULFATE 10 MG/ML INJ IM PRN (07:56)
[2016-10-07] MEDS: ENOXAPARIN SODIUM INJ 150 MG/1 ML DISP.SYRIN SUBCUT SCH (10:00)
[2016-10-07] MEDS: METFORMIN HCL 500 MG TABLET PO SCH (10:03)
[2016-10-07] MEDS: PREGABALIN 75 MG CAPSULE PO SCH (10:03)
[2016-10-07] MEDS: SENNOSIDES/DOCUSATE 8.6-50 MG 1 EACH TABLET PO SCH (10:03)
[2016-10-07] MEDS: PRENATAL VITAMIN W-O CA NO5/FE FUMARATE/FA CAPSULE PO SCH (10:03)
[2016-10-07 11:51] VITALS: BP 136/67
== END 2016-10-07 15:35 | disposition home health service (06) | DRG 470 ==
LOC: INOR 10-05 05:14 → 4S 10-05 10:50
PROVIDERS: ADMIT Orthopaedic Surgery; ATTEND Orthopaedic Surgery
PROC: 0SRC0J9 Replacement of Right Knee Joint with Synthetic Substitute, Cemented, Open Approach (ICD-10-PCS; principal; 2016-10-05 07:30)
DX: M17.11 Unilateral primary osteoarthritis, right knee (principal); I50.32 Chronic diastolic (congestive) heart failure; I48.91 Unspecified atrial fibrillation; I25.10 Atherosclerotic heart disease of native coronary artery without angina pectoris; E78.5 Hyperlipidemia, unspecified; G47.33 Obstructive sleep apnea (adult) (pediatric); E11.9 Type 2 diabetes mellitus without complications; I11.0 Hypertensive heart disease with heart failure; I25.2 Old myocardial infarction; K21.9 Gastro-esophageal reflux disease without esophagitis; E66.9 Obesity, unspecified; K44.9 Diaphragmatic hernia without obstruction or gangrene; F32.9 Major depressive disorder, single episode, unspecified; F43.10 Post-traumatic stress disorder, unspecified; M19.90 Unspecified osteoarthritis, unspecified site; H40.9 Unspecified glaucoma; Z79.84 Long term (current) use of oral hypoglycemic drugs; Z95.5 Presence of coronary angioplasty implant and graft; Z82.49 Family history of ischemic heart disease and other diseases of the circulatory system; Z87.891 Personal history of nicotine dependence; Z79.02 Long term (current) use of antithrombotics/antiplatelets; Z88.7 Allergy status to serum and vaccine; Z68.39 Body mass index [BMI] 39.0-39.9, adult
CPT/HCPCS: 01402; 36415; 80048; 81001; 82947; 82962; 83036; 84132; 85027; 85610; 85730; 88305; 88311; 93005; 93010; 94799; C2625; C9290; J0690; J1100; J1741; J2250; J2270; J2405; J2704; J3010; J3370; J3490; J7050; J7060

== ENCOUNTER 2016-10-09 12:21 | Observation (INO) | payer OTHER ==
[2016-10-09] MEDS ORDERED: MORPHINE SULFATE 10 MG/ML INJ IV ONE ×3 (12:56→18:18)
--- NOTE | 2016-10-09 12:58 | ER Document Report ---
ED Extremity Problem, Lower - General Information source: Patient TRAVEL OUTSIDE OF THE [place] IN LAST 30 DAYS: No - HPI Patient complains to provider of: Pain, Swelling Location: Knee - Right knee Occurred: Other - 4 days ago Quality of pain: Sharp Pain Level: 5 Context: Recent immobilization, Recent surgery Recent injury: No Associated symptoms: Chills, Unable to bear weight, Other - Dyspnea. denies: Fever Exacerbated by: Movement Relieved by: Nothing <DEBI CHARLES - Last Filed: 10/09/16 19:41> <EYAL ANN - Last Filed: 10/09/16 23:27> - General Chief Complaint: Knee Pain Stated Complaint: KNEE PAIN Notes: Patient presents status post recent right knee replacement performed on Wednesday. Patient was discharged from the hospital 2 days ago. Patient states he has chronic dyspnea and wears a cpap machine at home. Patient states that his dyspnea symptoms are not any different than symptoms that he has daily. Patient does state that he is really concerned about his right knee pain, swelling and warmth about the joint. Patient denies any fever but does complain of chills and states he's been taking Tylenol around the clock to help manage his pain symptoms. Patient does complain of some mild nausea but denies any vomiting or diarrhea. Patient denies any urinary symptoms. Patient denies any chest pain or upper back pain. Patient does complain of some lower back tenderness. (DEBI CHARLES) - Related Data Allergies/Adverse Reactions: typhoid vaccine [Typhoid Vaccine] Allergy (Severe, Verified 10/09/16 14:46) Seizures Home Medications: Current Home Medications Acetaminophen [Tylenol Extra Strength 500 mg Tablet] 500 mg PO QPMP PRN [History] Amlodipine Besylate [Norvasc 5 mg Tablet] 5 mg PO QPM 10/09/16 [History] Atorvastatin Calcium [Lipitor 20 mg Tablet] 20 mg PO QPM 10/09/16 [History] Hydrochlorothiazide 25 mg PO QPM 10/09/16 [History] Lisinopril [Prinivil 40 mg Tablet] 40 mg PO QPM 10/09/16 [History] Meloxicam [Mobic 15 mg Tablet] 15 mg PO QPMP PRN 10/09/16 [History] Metformin HCl [Glucophage] 500 mg PO QPM 10/09/16 [History] Metoprolol Tartrate [Lopressor 50 mg Tablet] 50 mg PO QPM 10/09/16 [History] Omeprazole 20 mg PO QPM 10/09/16 [History] Tramadol HCl [Ultram 50 mg Tablet] 50 mg PO QPMP PRN 10/09/16 [History] Warfarin Sodium [Coumadin 7.5 mg Tablet] 7.5 mg PO MOTUWETHSA 10/09/16 [History] Warfarin Sodium [Coumadin 7.5 mg Tablet] 11.25 mg PO SUFR 10/09/16 [History] Past Medical History - General Information source: Patient - Social History Smoking Status: Never Smoker Frequency of alcohol use: None Drug Abuse: None Occupation: none Lives with: Family Family History: Reviewed & Not Pertinent, CAD, Other - Mother lived to be 94. Father 68 - Past Medical History Cardiac Medical History: Reports: Hx Atrial Fibrillation, Hx Congestive Heart Failure - Diastolic dysfunction, Hx Coronary Artery Disease, Hx Heart Attack - ID 08/2011, Hx Hypercholesterolemia, Hx Hypertension Denies: Hx Peripheral Vascular Disease, Hx Pulmonary Embolism, Hx Heart Murmur Pulmonary Medical History: Reports: Hx Bronchitis, Hx Pneumonia, Hx Sleep Apnea - uses CPAP, had throat/chin surgery d/t Sleep Apnea Denies: Hx Asthma, Hx COPD, Hx Respiratory Failure, Hx Tuberculosis Neurological Medical History: Denies: Hx Cerebrovascular Accident, Hx Seizures Endocrine Medical History: Reports: Hx Diabetes Mellitus Type 2. Denies: Hx Graves' Disease, Hx Hyperthyroidism, Hx Hypothyroidism Malignancy Medical History: Denies Hx Leukemia, Denies Hx Lung Cancer GI Medical History: Reports: Hx Gastroesophageal Reflux Disease, Hx Hiatal Hernia, Hx Ulcer. Denies: Hx Crohn's Disease, Hx Irritable Bowel, Hx Liver Failure Musculoskeltal Medical History: Reports Hx Arthritis, Denies Hx Fibromyalgia, Denies Hx Multiple Sclerosis, Denies Hx Muscular Dystrophy Psychiatric Medical History: Reports: Hx Depression, Hx Post Traumatic Stress Disorder Denies: Hx Bipolar Disorder, Hx Dementia, Hx Schizophrenia Traumatic Medical History: Denies: Hx Fractures Infectious Medical History: Denies: Hx HIV Past Surgical History: Reports: Hx Cardiac Catheterization, Hx Coronary Stent - x2 2011, Hx Orthopedic Surgery, Hx Tonsillectomy - and adenoids. Denies: Hx Appendectomy, Hx Bowel Surgery, Hx Cholecystectomy, Hx Colostomy, Hx Coronary Artery Bypass Graft, Hx Gastric Bypass Surgery, Hx Herniorrhaphy, Hx Pacemaker - Immunizations Hx Diphtheria, Pertussis, Tetanus Vaccination: No Hx Pneumococcal Vaccination: 04/14/16 <DEBI CHARLES - Last Filed: 10/09/16 19:41> Review of Systems - Review of Systems Constitutional: Chills EENT: No symptoms reported Cardiovascular: Dyspnea - Chronic daily dyspnea. denies: Chest pain Respiratory: No symptoms reported. denies: Cough, Hurts to breathe Gastrointestinal: Nausea. denies: Abdominal pain, Vomiting Genitourinary: No symptoms reported Male Genitourinary: No symptoms reported Musculoskeletal: Back pain, Joint pain - Right knee, Joint swelling - Right knee Skin: No symptoms reported Hematologic/Lymphatic: No symptoms reported Neurological/Psychological: No symptoms reported <DEBI CHARLES - Last Filed: 10/09/16 19:41> Physical Exam - General General appearance: Appears well, Alert In distress: None - HEENT Head: Normocephalic, Atraumatic Nasal: Normal Mouth/Lips: Normal Neck: Normal, Supple. No: Lymphadenopathy - Respiratory Respiratory status: No respiratory distress Chest status: Nontender Breath sounds: Nonproductive cough. No: Rales, Rhonchi, Stridor, Wheezing Chest palpation: Normal - Cardiovascular Rhythm: Regular Heart sounds: S1 appreciated, S2 appreciated Murmur: No Pulses: Normal: Posterior tibial, Dorsalis pedis - Abdominal Inspection: Obese Distension: No distension Bowel sounds: Normal Tenderness: Nontender Organomegaly: No organomegaly - Back Back: Tender - Lower lumbar paraspinal tenderness. No: CVA tenderness - Extremities General upper extremity: Normal inspection, Normal strength General lower extremity: Tender, Edema - Right knee joint tenderness 3+ edema to right knee Knee: Tender - Right knee, Joint effusion - Neurological Neuro grossly intact: Yes Cognition: Normal Ramez Coma Scale Eye Opening: Spontaneous [place] Coma Scale Verbal: Oriented [place] Coma Scale Motor: Obeys Commands Ramez Coma Scale Total: 15 - Psychological Associated symptoms: Normal affect, Normal mood - Skin Skin Temperature: Warm Skin Moisture: Dry Skin Color: Normal <DEBI CHARLES - Last Filed: 10/09/16 19:41> Course - Laboratory Result Diagrams: 10/09/16 14:35 10/09/16 14:35 - Diagnostic Test Radiology reviewed: Reports reviewed <DEBI CHARLES - Last Filed: 10/09/16 19:41> - Laboratory Result Diagrams: 10/09/16 14:35 10/09/16 14:35 <EYAL ANN - Last Filed: 10/09/16 23:27> - Re-evaluation Re-evalutation: 10/09/16 16:[address] Wilder regarding patient presentation to the emergency department, and concern about postoperative infection. States that if patient needs to be admitted, recommends consulting with Dr. Santana. Does not recommend any antibiotics at this time. 10/09/16 16:30 Dr. Ann to bedside for examination, does recommend consulting with orthopedic for admitting patient for concern about postoperative infection given exam findings and leukocytosis. Does not recommend repeating troponin at this time, as pt has had chronic dyspnea, patient reports that his primary concern has been his increased knee pain and swelling 10/09/16 16:[address] Santana who agrees to admit patient for observation, Dr. Santana advised of negative Doppler study. 10/09/16 18:19 Dr. Wilder updated on patient's status. Dr. Wilder advises keeping patient on the Lovenox injections until his INR is up to 2. Patient states that he has chronic dyspnea for years and that his symptoms are not different from what he has had in the past. Patient states that he does wear a cpap Machine at night. Patient requesting additional medicine for his right knee. Patient states that he typically takes his Coumadin at 6 PM and his Lovenox injections at 9 PM. 10/09/16 19:47 (DEBI CHARLES) Pt seen and examined during ER stay. POD #4 s/p R total knee replacement. R knee with significant swelling, warmth, and TTP. Leukocytosis noted, and clinically I am concerned about possible post-operative infection. Will consult ortho for admission and antibiotics. (EYAL ANN) - Vital Signs Vital signs: Temp Pulse Resp BP Pulse Ox 98.6 F 97 20 153/85 H 97 10/09/16 20:12 10/09/16 20:12 10/09/16 20:12 10/09/16 20:12 10/09/16 20:12 - Laboratory Laboratory results interpreted by me: 10/09/16 10/09/16 10/09/16 14:35 14:35 14:35 WBC 17.9 H Hgb 13.0 L Absolute Neutrophils 11.6 H Absolute Monocytes 2.3 H PT 17.9 H APTT 43.0 H Chloride 94 L Glucose 144 H Creatine Kinase 436 H Urine Urobilinogen 10/09/16 14:40 WBC Hgb Absolute Neutrophils Absolute Monocytes PT APTT Chloride Glucose Creatine Kinase Urine Urobilinogen 4.0 H Labs- Entire Visit 10/09/16 10/09/16 10/09/16 14:35 14:35 14:35 WBC 17.9 H RBC 4.56 Hgb 13.0 L Hct 38.6 MCV 85 MCH 28.5 MCHC 33.7 RDW 13.8 Plt Count 247 Seg Neutrophils % 64.7 Lymphocytes % 21.1 Monocytes % 13.0 Eosinophils % 0.2 Basophils % 1.0 Absolute Neutrophils 11.6 H Absolute Lymphocytes 3.8 Absolute Monocytes 2.3 H Absolute Eosinophils 0.0 Absolute Basophils 0.2 PT INR APTT Sodium 138.2 Potassium 3.9 Chloride 94 L Carbon Dioxide 30 Anion Gap 14 BUN 14 Creatinine 1.06 Est GFR ( Amer) > 60 Est GFR (Non-Af Amer) > 60 Glucose 144 H Calcium 9.5 Magnesium 1.9 Total Bilirubin 1.2 Direct Bilirubin 0.4 Indirect Bilirubin Not Reportable Neonat Total Bilirubin Not Reportable AST 26 ALT 31 Alkaline Phosphatase 73 Creatine Kinase 436 H CK-MB (CK-2) 0.63 Troponin I < 0.012 Total Protein 7.6 Albumin 3.8 Urine Color Urine Appearance Urine pH Ur Specific [place] Urine Protein Urine Glucose (UA) Urine Ketones Urine Blood Urine Nitrite Urine Bilirubin Urine Urobilinogen Ur Leukocyte Esterase Urine WBC (Auto) Urine RBC (Auto) Urine Ascorbic Acid 10/09/16 10/09/16 14:35 14:40 WBC RBC Hgb Hct MCV MCH MCHC RDW Plt Count Seg Neutrophils % Lymphocytes % Monocytes % Eosinophils % Basophils % Absolute Neutrophils Absolute Lymphocytes Absolute Monocytes Absolute Eosinophils Absolute Basophils PT 17.9 H INR 1.43 APTT 43.0 H Sodium Potassium Chloride Carbon Dioxide Anion Gap BUN Creatinine Est GFR ( Amer) Est GFR (Non-Af Amer) Glucose Calcium Magnesium Total Bilirubin Direct Bilirubin Indirect Bilirubin Neonat Total Bilirubin AST ALT Alkaline Phosphatase Creatine Kinase CK-MB (CK-2) Troponin I Total Protein Albumin Urine Color YELLOW Urine Appearance CLEAR Urine pH 9.0 Ur Specific [place] 1.011 Urine Protein NEGATIVE Urine Glucose (UA) NEGATIVE Urine Ketones NEGATIVE Urine Blood NEGATIVE Urine Nitrite NEGATIVE Urine Bilirubin NEGATIVE Urine Urobilinogen 4.0 H Ur Leukocyte Esterase NEGATIVE Urine WBC (Auto) 0 Urine RBC (Auto) 0 Urine Ascorbic Acid NEGATIVE (DEBI CHARLES) Discharge - Discharge Admitting Provider: hay <DEBI CHARLES - Last Filed: 10/09/16 19:41> <EYAL ANN - Last Filed: 10/09/16 23:27> - Discharge Clinical Impression: Status post knee replacement Knee pain, right Qualifiers: Chronicity: acute Qualified Code(s): M25.561 - Pain in right knee Leukocytosis Qualifiers: Leukocytosis type: unspecified Qualified Code(s): D72.829 - Elevated white blood cell count, unspecified Condition: Stable Disposition: ADMITTED OBSERVATION
[2016-10-09 14:55] LABS: ABSOLUTE BASOPHILS # (AUTO) 0.2 10^3/uL (0.0-0.2); ABSOLUTE LYMPHOCYTES (AUTO) 3.8 10^3/uL (0.5-4.7); ABSOLUTE MONOCYTES (AUTO) 2.3 10^3/uL (0.1-1.4); ABSOLUTE NEUT (AUTO) 11.6 10^3/uL (1.7-8.2); EOSINOPHILS % (AUTO) 0.2 % (0-6); HEMATOCRIT 38.6 % (37.9-51.0); HGB HCT DIFFERENCE 0.4; LYMPHOCYTES % (AUTO) 21.1 % (13-45); MEAN CORPUSCULAR HEMOGLOBIN 28.5 pg (27.0-33.4); MEAN CORPUSCULAR HGB CONC 33.7 g/dL (32.0-36.0); MEAN CORPUSCULAR VOLUME 85 fl (80-97); RED BLOOD COUNT 4.56 10^6/uL (4.35-5.55); RED CELL DISTRIBUTION WIDTH 13.8 % (11.5-14.0); SEGMENTED NEUTROPHILS % (AUTO) 64.7 % (42-78); WHITE BLOOD COUNT 17.9 10^3/uL (4.0-10.5)
[2016-10-09 15:16] LABS: ALANINE AMINOTRANSFERASE 31 U/L (21-72); ALBUMIN 3.8 g/dL (3.5-5.0); ALKALINE PHOSPHATASE 73 U/L (38-126); ANION GAP 14 (5-19); ASPARTATE AMINO TRANSFERASE 26 U/L (17-59); BILIRUBIN,DIRECT 0.4 mg/dL (0.0-0.4); BILIRUBIN,TOTAL 1.2 mg/dL (0.2-1.3); BLOOD UREA NITROGEN 14 mg/dL (7-20); CALCIUM 9.5 mg/dL (8.4-10.2); CARBON DIOXIDE 30 mmol/L (22-30); CHLORIDE 94 mmol/L (98-107); CREATINE KINASE 436 U/L (55-170); CREATININE RESULT 1.06 mg/dL (0.52-1.25); GLUCOSE 144 mg/dL (75-110); MAGNESIUM 1.9 mg/dL (1.6-2.3); POTASSIUM 3.9 mmol/L (3.6-5.0); SODIUM 138.2 mmol/L (137-145); TOTAL PROTEIN 7.6 g/dL (6.3-8.2)
[2016-10-09 15:19] LABS: APPEARANCE,URINE CLEAR; BILIRUBIN,URINE NEGATIVE (NEGATIVE); GLUCOSE, URINE NEGATIVE (NEGATIVE); KETONES,URINE NEGATIVE (NEGATIVE); LEUKOCYTE ESTERASE,URINE NEGATIVE (NEGATIVE); NITRITE,URINE NEGATIVE (NEGATIVE); PROTEIN,URINE NEGATIVE (NEGATIVE); URINE SPECIFIC GRAVITY 1.011
[2016-10-09 15:28] LABS: CREATINE KINASE MB 0.63 ng/mL (<4.55)
[2016-10-09 15:31] LABS: TROPONIN I < 0.012 ng/mL
--- NOTE | 2016-10-09 16:27 | XCELERA REPORT ---
[address] [address] Lower Extremity Venous Evaluation Name: DONALD ELDER Age: 60 yrs Gender: Male : 1955 Patient Status: Emergency Patient Location: ER Study Date: 10/09/2016 02:50 PM Procedure: Color flow and duplex imaging of the veins of the right lower extremity as well as the left Common Femoral vein. Reason For Study: RLE pain, swelling Ordering Physician: DEBI RICHARDS Performed By: Rudy Tam Right Sided Venous Evaluation Normal vessel filling wall to wall, compression and augmentation as well as Colour flow down to the infrageniculate veins. Left Sided Venous Evaluation The left common femoral vein is fully compressible. Spontaneous and phasic flow is present in the left common femoral vein. Critical Findings Called in to Carmella Richards at about 1630. Interpretation Summary No duplex evidence of DVT or obstruction in the right lower extremity nor in the left Common Femoral vein. : DEBI RICHARDS > Luis Antonio Mckeon
[2016-10-09 17:05] LABS: PROTHROMBIN TIME 17.9 SEC (11.4-15.4)
[2016-10-09] MEDS ORDERED: WARFARIN SODIUM 5 MG TABLET PO ONE (18:19)
--- NOTE | 2016-10-09 19:39 | EKG REPORT ---
SEVERITY:- ABNORMAL ECG - SINUS RHYTHM PROLONGED QT INTERVAL : Confirmed by: Marianela Buckner 09-Oct-2016 19:38:44
[2016-10-09] MEDS ORDERED: ONDANSETRON HCL INJ/PF 4 MG/2 ML SDV IV PRN (20:09)
[2016-10-09] MEDS ORDERED: WARFARIN SODIUM PO SCH (20:15)
[2016-10-09] MEDS ORDERED: HYDROCHLOROTHIAZIDE 25 MG TABLET PO ONE (21:00)
[2016-10-09] MEDS ORDERED: LANSOPRAZOLE 15 MG TAB.RAP.DR PO ONE (21:00)
[2016-10-09] MEDS ORDERED: ATORVASTATIN CALCIUM 20 MG TABLET PO ONE (21:00)
[2016-10-09] MEDS ORDERED: AMLODIPINE BESYLATE 5 MG TABLET PO ONE (21:00)
[2016-10-09] MEDS ORDERED: METOPROLOL TARTRATE 50 MG TABLET PO ONE (21:00)
[2016-10-09] MEDS ORDERED: METFORMIN HCL 500 MG TABLET PO ONE (21:00)
[2016-10-09] MEDS ORDERED: LISINOPRIL 10 MG TABLET PO ONE (21:00)
[2016-10-09] MEDS: OXYCODONE-ACETAMINOPHEN 5-325 MG TABLET PO PRN (21:29)
[2016-10-09] MEDS: WARFARIN SODIUM 7.5 MG TABLET PO SCH (21:30)
[2016-10-09] MEDS ORDERED: WARFARIN SODIUM 2.5 MG TABLET PO SCH (22:00)
[2016-10-09] MEDS ORDERED: LANSOPRAZOLE 30 MG TAB.RAP.DR PO SCH (22:00)
[2016-10-09] MEDS ORDERED: WARFARIN SODIUM 5 MG TABLET PO SCH (22:00)
[2016-10-10] MEDS: OXYCODONE-ACETAMINOPHEN 5-325 MG TABLET PO PRN (03:34)
[2016-10-10] MEDS ORDERED: MAGNESIUM CITRATE 296 ML BOTTLE PO ONE (07:00)
[2016-10-10 07:09] LABS: ABSOLUTE BASOPHILS # (AUTO) 0.1 10^3/uL (0.0-0.2); ABSOLUTE LYMPHOCYTES (AUTO) 3.4 10^3/uL (0.5-4.7); ABSOLUTE MONOCYTES (AUTO) 2.8 10^3/uL (0.1-1.4); ABSOLUTE NEUT (AUTO) 10.3 10^3/uL (1.7-8.2); BASOPHILS % (AUTO) 0.8 % (0-2); EOSINOPHILS % (AUTO) 0.1 % (0-6); HEMATOCRIT 33.9 % (37.9-51.0); HEMOGLOBIN 11.1 g/dL (13.5-17.0); HGB HCT DIFFERENCE -0.6; LYMPHOCYTES % (AUTO) 20.5 % (13-45); MEAN CORPUSCULAR HGB CONC 32.9 g/dL (32.0-36.0); MEAN CORPUSCULAR VOLUME 85 fl (80-97); MONOCYTES % (AUTO) 16.7 % (3-13); RED BLOOD COUNT 3.98 10^6/uL (4.35-5.55); RED CELL DISTRIBUTION WIDTH 13.7 % (11.5-14.0); SEGMENTED NEUTROPHILS % (AUTO) 61.9 % (42-78); WHITE BLOOD COUNT 16.6 10^3/uL (4.0-10.5)
--- NOTE | 2016-10-10 07:13 | PDOC H&P ---
History of Present Illness Admission Date/PCP: 10/09/16 20:04 CHERELLE COATES MD History of Present Illness: DONALD ELDER is a 60 year old male who underwent a right knee arthroplasty. This past Wednesday, which was uncomplicated. The subsequent discharge home with home health senior living health physical therapy. He was on a Lovenox bridge as his Coumadin was restarted. All came from the visiting nurse service that he was short of breath and he was referred emergency room. In the emergency room. There was concern about swelling in his right lower extremity. Doppler was negative for DVT. Patient was admitted for observation. Past Medical History Cardiac Medical History: Reports: Atrial Fibrillation, Congestive Heart Failure - Diastolic dysfunction, Coronary Artery Disease, Myocardial Infarction - [place] 2011, Hyperlipidema, Hypertension Denies: Peripheral Vascular Disease, Pulmonary Embolism, Heart Murmur Pulmonary Medical History: Reports: Bronchitis, Pneumonia, Sleep Apnea - uses CPAP, had throat/chin surgery d/t Sleep Apnea Denies: Asthma, Chronic Obstructive Pulmonary Disease (COPD), Respiratory Failure, Tuberculosis Neurological Medical History: Denies: Seizures Endocrine Medical History: Reports: Diabetes Mellitus Type 2 Denies: Hyperthyroidism, Hypothyroidism Malignancy Medical History: Denies: Leukemia, Lung Cancer GI Medical History: Reports: Gastroesophageal Reflux Disease, Hiatal Hernia Denies: Crohn's Disease Musculoskeltal Medical History: Reports: Arthritis Denies: Fibromyalgia Psychiatric Medical History: Reports: Depression, Post Traumatic Stress Disorder Denies: Bipolar Disorder, Dementia Hematology: Denies: Anemia, Hemophilia, Sickle Cell Disease Infectious Medical History: Denies: HIV Past Surgical History Past Surgical History: Reports: Cardiac Catheterization, Coronary Stent - 2011, Orthopedic Surgery, Tonsillectomy - and adenoids Denies: Appendectomy, Cholecystectomy, Colostomy, Coronary Artery Bypass Graft, Gastric Bypass Surgery, Herniorrhaphy, Pacemaker Social History Lives with: Family Smoking Status: Never Smoker Frequency of Alcohol Use: None Hx Recreational Drug Use: No Drugs: None Hx Prescription Drug Abuse: No - Advance Directive Resuscitation Status: Full Code Family History Family History: Reviewed & Not Pertinent, CAD, Other - Mother lived to be 94. Father 68 Parental Family History Reviewed: No Children Family History Reviewed: No Sibling(s) Family History Reviewed.: No Medication/Allergy Home Medications: Acetaminophen [Tylenol Extra Strength 500 mg Tablet] 500 mg PO QPMP PRN Amlodipine Besylate [Norvasc 5 mg Tablet] 5 mg PO QPM 10/09/16 Atorvastatin Calcium [Lipitor 20 mg Tablet] 20 mg PO QPM 10/09/16 Hydrochlorothiazide 25 mg PO QPM 10/09/16 Lisinopril [Prinivil 40 mg Tablet] 40 mg PO QPM 10/09/16 Meloxicam [Mobic 15 mg Tablet] 15 mg PO QPMP PRN 10/09/16 Metformin HCl [Glucophage] 500 mg PO QPM 10/09/16 Metoprolol Tartrate [Lopressor 50 mg Tablet] 50 mg PO QPM 10/09/16 Omeprazole 20 mg PO QPM 10/09/16 Tramadol HCl [Ultram 50 mg Tablet] 50 mg PO QPMP PRN 10/09/16 Warfarin Sodium [Coumadin 7.5 mg Tablet] 7.5 mg PO MOTUWETHSA 10/09/16 Warfarin Sodium [Coumadin 7.5 mg Tablet] 11.25 mg PO SUFR 10/09/16 Allergies/Adverse Reactions: typhoid vaccine [Typhoid Vaccine] Allergy (Severe, Verified 10/09/16 14:46) Seizures Review of Systems All systems: as per PMH Physical Exam Vital Signs: Temp Pulse Resp BP Pulse Ox 36.6 C 72 18 132/77 H 96 10/10/16 00:00 10/10/16 00:00 10/10/16 00:00 10/10/16 00:00 10/10/16 00:00 Intake & Output 10/09/16 10/10/16 10/11/16 06:59 06:59 06:59 Intake Total 750 Output Total 380 Balance 370 General appearance: PRESENT: no acute distress Head exam: PRESENT: normocephalic Eye exam: PRESENT: EOMI Respiratory exam: PRESENT: unlabored Cardiovascular exam: PRESENT: RRR Pulses: PRESENT: +1 pedal pulses bilateral Vascular exam: PRESENT: normal capillary refill GI/Abdominal exam: PRESENT: soft Rectal exam: PRESENT: deferred Extremities exam: PRESENT: other - Right lower extremity. Russ dressing changed today. The wound is clean dry and intact with no drainage, no erythema , and isha are intact. Distal neurovascular examinations intact. A considerable amount of soft tissue swelling that is diffuse. Neurological exam: PRESENT: alert, awake, oriented to person, oriented to place , oriented to time, oriented to situation. ABSENT: motor sensory deficit Psychiatric exam: PRESENT: appropriate affect, normal mood. ABSENT: homicidal ideation, suicidal ideation Skin exam: PRESENT: dry, intact, warm. ABSENT: cyanosis, rash Results Impressions: Chest X-Ray 10/09/16 12:55 IMPRESSION: No acute changes. Status: Imported from PACS Assessment & Plan - Diagnosis (1) Status post knee replacement Is this a current diagnosis for this admission?: YesPlan: 60-year-old black male with increasing right knee pain and swelling in the right lower extremity status post knee arthroplasty. At this point, my concern for surgical site infection is very low. I think the patient can have increased analgesia and reinitiate physical therapy. Is also complaining of constipation and a laxative has been prescribed. Operatory values are pending. Blood glucose monitoring and a sliding scale have been ordered. - Time Time Spent: 50 to 70 Minutes Anticipated discharge: Home with Homehealth Within: within 48 hours
[2016-10-10 07:22] LABS: PROTHROMBIN TIME 19.2 SEC (11.4-15.4)
[2016-10-10 07:23] LABS: PARTIAL THROMBOPLASTIN TIME 40.2 SEC (23.5-35.8)
[2016-10-10 07:27] LABS: ANION GAP 13 (5-19); BLOOD UREA NITROGEN 17 mg/dL (7-20); CALCIUM 9.1 mg/dL (8.4-10.2); CARBON DIOXIDE 28 mmol/L (22-30); CHLORIDE 96 mmol/L (98-107); CREATININE RESULT 1.07 mg/dL (0.52-1.25); GLUCOSE 139 mg/dL (75-110); POTASSIUM 3.9 mmol/L (3.6-5.0); SODIUM 136.7 mmol/L (137-145)
[2016-10-10] MEDS: OXYCODONE HCL IR 5 MG TABLET PO PRN ×3 (08:09→20:38)
[2016-10-10] MEDS ORDERED: DEXTROSE 40% GEL 15 GM TUBE PO PRN (08:48)
[2016-10-10] MEDS ORDERED: INSULIN LISPRO 100 UNIT/ML 3 ML VIAL SUBCUT PRN (08:48)
[2016-10-10] MEDS ORDERED: DEXTROSE 40% GEL 15 GM TUBE X 2 PO PRN (08:48)
[2016-10-10] MEDS ORDERED: GLUCAGON,HUMAN RECOMB 1 MG INJ IM PRN (08:48)
[2016-10-10] MEDS ORDERED: DEXTROSE 50%-WATER SYRINGE 25 GM/50 ML DOSE IV PRN (08:48)
[2016-10-10] MEDS ORDERED: DEXTROSE 50%-WATER SYRINGE 12.5 GM/25 ML DOSE IV PRN (08:48)
[2016-10-10] MEDS: OXYCODONE HCL SR 10 MG TABLET PO SCH ×2 (10:23→22:04)
[2016-10-10] MEDS: LISINOPRIL 10 MG TABLET PO SCH (17:51)
[2016-10-10] MEDS: LANSOPRAZOLE 15 MG TAB.RAP.DR PO SCH (17:51)
[2016-10-10] MEDS: METOPROLOL TARTRATE 50 MG TABLET PO SCH (17:52)
[2016-10-10] MEDS: ATORVASTATIN CALCIUM 20 MG TABLET PO SCH (17:52)
[2016-10-10] MEDS: METFORMIN HCL 500 MG TABLET PO SCH (17:52)
[2016-10-10] MEDS: AMLODIPINE BESYLATE 5 MG TABLET PO SCH (17:52)
[2016-10-10] MEDS: HYDROCHLOROTHIAZIDE 25 MG TABLET PO SCH (17:52)
[2016-10-10] MEDS ORDERED: (PENDING PHARMACY ID) (Warfarin Sodium 7.5 MG) PO SCH (20:10)
[2016-10-10] MEDS ORDERED: WARFARIN SODIUM 7.5 MG TABLET PO SCH (22:00)
[2016-10-11] MEDS: OXYCODONE HCL IR 5 MG TABLET PO PRN ×3 (03:34→14:56)
[2016-10-11] MEDS: OXYCODONE HCL SR 10 MG TABLET PO SCH ×2 (10:35→21:22)
[2016-10-11] MEDS: ATORVASTATIN CALCIUM 20 MG TABLET PO SCH (17:35)
[2016-10-11] MEDS: LISINOPRIL 10 MG TABLET PO SCH (17:36)
[2016-10-11] MEDS: HYDROCHLOROTHIAZIDE 25 MG TABLET PO SCH (17:36)
[2016-10-11] MEDS: METFORMIN HCL 500 MG TABLET PO SCH (17:36)
[2016-10-11] MEDS: LANSOPRAZOLE 15 MG TAB.RAP.DR PO SCH (17:37)
[2016-10-11] MEDS: METOPROLOL TARTRATE 50 MG TABLET PO SCH (17:37)
[2016-10-11] MEDS: AMLODIPINE BESYLATE 5 MG TABLET PO SCH (17:37)
--- NOTE | 2016-10-11 17:51 | PDOC PROGRESS REPORT ---
Subjective Progress Note for:: 10/11/16 Subjective:: Patient had no issues overnight. States that the pain is about the same as yesterday. Physical Exam Vital Signs: Temp Pulse Resp BP Pulse Ox 37.2 C 94 17 123/74 100 10/11/16 15:27 10/11/16 15:27 10/11/16 15:27 10/11/16 15:27 10/11/16 15:27 Intake & Output 10/10/16 10/11/16 10/12/16 06:59 06:59 06:59 Intake Total 750 960 Output Total 380 1500 Balance 370 -540 Adult Front & Back Image: 1 - [place] are intact. No obvious erythema noted. Serosanguineous drainage spotted on two portions of the dressing. The remaining dressing is dry clean and intact. Limited range of motion second to pain. Soft cast, no tenderness palpation of the calf. Neurovascular intact distally. Results Laboratory Results: 10/10/16 06:20 10/10/16 06:20 Impressions: Chest X-Ray 10/09/16 12:55 IMPRESSION: No acute changes. Knee X-Ray 10/10/16 00:00 IMPRESSION: Postoperative knee radiographs reveal appropriate articulation. No periprosthetic fracture or bone lesion evident. Probable joint effusion. Assessment & Plan - Plan Summary Plan Summary: 60-year-old gentleman admitted for increased right knee pain and swelling. Still questioning potential surgical site infection versus postoperative edema and swelling. We'll continue to monitor. We will order a CBC for the morning. Dr. Wilder will reassess in the morning.
[2016-10-11] MEDS: WARFARIN SODIUM 7.5 MG TABLET PO SCH (21:22)
[2016-10-12 05:03] LABS: ABSOLUTE BASOPHILS # (AUTO) 0.2 10^3/uL (0.0-0.2); ABSOLUTE EOSINOPHILS # (AUTO) 0.1 10^3/uL (0.0-0.6); ABSOLUTE LYMPHOCYTES (AUTO) 4.3 10^3/uL (0.5-4.7); ABSOLUTE MONOCYTES (AUTO) 2.1 10^3/uL (0.1-1.4); ABSOLUTE NEUT (AUTO) 10.9 10^3/uL (1.7-8.2); BASOPHILS % (AUTO) 0.9 % (0-2); EOSINOPHILS % (AUTO) 0.4 % (0-6); HEMOGLOBIN 10.9 g/dL (13.5-17.0); HGB HCT DIFFERENCE -0.3; LYMPHOCYTES % (AUTO) 24.6 % (13-45); MEAN CORPUSCULAR HEMOGLOBIN 28.2 pg (27.0-33.4); MEAN CORPUSCULAR VOLUME 85 fl (80-97); MONOCYTES % (AUTO) 12.1 % (3-13); RED BLOOD COUNT 3.86 10^6/uL (4.35-5.55); WHITE BLOOD COUNT 17.5 10^3/uL (4.0-10.5)
--- NOTE | 2016-10-12 07:10 | PDOC DISCHARGE SUMMARY ---
General - Admit/Disc Date/PCP Admission Date/Primary Care Provider: 10/09/16 20:04 CHERELLE COATES MD Discharge Date: 10/12/16 - Discharge Diagnosis (1) Status post knee replacement Is this a current diagnosis for this admission?: Yes - Additional Information Resuscitation Status: Full Code Discharge Diet: As Tolerated, Regular Discharge Activity: Balance Activity w/Rest Home Medications: Acetaminophen [Tylenol Extra Strength 500 mg Tablet] 500 mg PO QPMP PRN Amlodipine Besylate [Norvasc 5 mg Tablet] 5 mg PO QPM 10/09/16 Atorvastatin Calcium [Lipitor 20 mg Tablet] 20 mg PO QPM 10/09/16 Hydrochlorothiazide 25 mg PO QPM 10/09/16 Lisinopril [Prinivil 40 mg Tablet] 40 mg PO QPM 10/09/16 Meloxicam [Mobic 15 mg Tablet] 15 mg PO QPMP PRN 10/09/16 Metformin HCl [Glucophage] 500 mg PO QPM 10/09/16 Metoprolol Tartrate [Lopressor 50 mg Tablet] 50 mg PO QPM 10/09/16 Omeprazole 20 mg PO QPM 10/09/16 Tramadol HCl [Ultram 50 mg Tablet] 50 mg PO QPMP PRN 10/09/16 Warfarin Sodium [Coumadin 7.5 mg Tablet] 7.5 mg PO MOTUWETHSA 10/09/16 Warfarin Sodium [Coumadin 7.5 mg Tablet] 11.25 mg PO SUFR 10/09/16 Oxycodone HCl [Oxy-Ir 5 mg Tablet] 5 mg PO Q6HP PRN #0 tablet 10/12/16 Oxycodone HCl [Oxycontin Sr 10 mg Tablet] 20 mg PO Q12 #0 tab.sr.12h 10/12/16 History of Present Illness History of Present Illness: The patient's a 60-year-old male who underwent a right knee arthroplasty on . He presented to emergency room with increasing pain and swelling in the right lower extremity. He is admitted for observation. Hospital Course Hospital Course: Patient cemented to floor and continued course of observation. He is also continued on Coumadin for anticoagulation because of pre-existing cardiac condition. She initially has some significant discomfort but this is easily controlled oral analgesics. When in the lower extremity decreased over time and as stated pain. Physical Exam Vital Signs: Temp Pulse Resp BP Pulse Ox 37.2 C 85 20 143/74 H 98 10/12/16 00:05 10/12/16 00:05 10/12/16 00:05 10/12/16 00:05 10/12/16 00:05 Intake & Output 10/11/16 10/12/16 10/13/16 06:59 06:59 06:59 Intake Total 960 1260 Output Total 1500 2250 Balance -540 -990 General appearance: PRESENT: no acute distress Head exam: PRESENT: normocephalic Eye exam: PRESENT: EOMI Respiratory exam: PRESENT: unlabored Cardiovascular exam: PRESENT: RRR Vascular exam: PRESENT: normal capillary refill GI/Abdominal exam: PRESENT: soft Rectal exam: PRESENT: deferred Extremities exam: PRESENT: other - Right lower extremity is OpSite dressing is clean dry and intact. Neurological exam: PRESENT: alert, awake, oriented to person, oriented to place , oriented to time, oriented to situation. ABSENT: motor sensory deficit Psychiatric exam: PRESENT: appropriate affect, normal mood. ABSENT: homicidal ideation, suicidal ideation Skin exam: PRESENT: dry, intact, warm. ABSENT: cyanosis, rash Results Laboratory Results: 10/12/16 04:24 10/10/16 06:20 10/12/16 04:24 WBC 17.5 H RBC 3.86 L Hgb 10.9 L Hct 33.0 L MCV 85 MCH 28.2 MCHC 33.0 RDW 14.0 Plt Count 261 Seg Neutrophils % 62.0 Lymphocytes % 24.6 Monocytes % 12.1 Eosinophils % 0.4 Basophils % 0.9 Absolute Neutrophils 10.9 H Absolute Lymphocytes 4.3 Absolute Monocytes 2.1 H Absolute Eosinophils 0.1 Absolute Basophils 0.2 Impressions: Chest X-Ray 10/09/16 12:55 IMPRESSION: No acute changes. Knee X-Ray 10/10/16 00:00 IMPRESSION: Postoperative knee radiographs reveal appropriate articulation. No periprosthetic fracture or bone lesion evident. Probable joint effusion. Status: Imported from PACS Plan Discharge Plan: Patient will be discharged home with home health nursing, home physical therapy , he really has a we will walker and bedside commode. Follow-up will be with Dr. Wilder in the [facility] for surgery this proves a scheduled.
[2016-10-12] MEDS: OXYCODONE HCL IR 5 MG TABLET PO PRN (07:56)
[2016-10-12] MEDS: OXYCODONE HCL SR 10 MG TABLET PO SCH (09:41)
[2016-10-12 12:01] VITALS: BP 138/69
== END 2016-10-12 12:13 | disposition home health service (06) ==
LOC: ER 12:21 → EH 17:01 → UNDOADMOB 17:01 → 5 19:23 → EH 19:23 → 5 20:04 → EH 20:04
PROVIDERS: ADMIT Orthopaedic Surgery; ATTEND Orthopaedic Surgery
DX: M25.561 Pain in right knee (principal); M79.89 Other specified soft tissue disorders; Z96.651 Presence of right artificial knee joint; K59.00 Constipation, unspecified; D72.829 Elevated white blood cell count, unspecified; G47.30 Sleep apnea, unspecified; R11.0 Nausea; R68.83 Chills (without fever); M54.9 Dorsalgia, unspecified; R05 Cough; R06.09 Other forms of dyspnea; E66.9 Obesity, unspecified; I48.91 Unspecified atrial fibrillation; I11.0 Hypertensive heart disease with heart failure; I50.30 Unspecified diastolic (congestive) heart failure; M19.90 Unspecified osteoarthritis, unspecified site; E11.9 Type 2 diabetes mellitus without complications; Z79.01 Long term (current) use of anticoagulants; Z79.84 Long term (current) use of oral hypoglycemic drugs; Z79.899 Other long term (current) drug therapy; Z95.5 Presence of coronary angioplasty implant and graft; Z79.1 Long term (current) use of non-steroidal anti-inflammatories (NSAID); Z68.39 Body mass index [BMI] 39.0-39.9, adult
CPT/HCPCS: 93005; 96376; 99285; 96374; 36415 ×3; 82553; 82962 ×3; 82550; 83735; 85025 ×3; 85652; 85610 ×2; 85730 ×2; 86140; 80048; 80053; 81001; 84484; 93971 ×2; 71020; 73560; 93010; 97110; 97116; 97163; G0378 ×4; J3490 ×2; J2270

== ENCOUNTER 2016-10-27 14:44 | Inpatient (IN) | payer OTHER ==
--- NOTE | 2016-10-27 15:22 | ER Document Report ---
ED Extremity Problem, Lower - General Chief Complaint: Knee Pain Stated Complaint: RIGHT LEG PAIN Time Seen by Provider: 10/27/16 15:10 Information source: Patient Notes: Patient is a 60-year-old male who had a right knee replacement on September 04 who states for around one week he's had some increased pain and some white discharge with a "bad odor" coming from the knee wound. He states nausea without vomiting. He does feel like he has had some chills. No objective fever noted. Patient was sent from the [place] office through the emergency department for evaluation by Dr. Woods the orthopaedic surgeon. Patient denies any chest pain, shortness of breath, or excessive swelling of the leg. TRAVEL OUTSIDE OF THE [place] IN LAST 30 DAYS: No - HPI Patient complains to provider of: Pain Location: Knee Occurred: Other - See above Where: Home Onset/Duration: Gradual Quality of pain: Achy Severity: Mild Pain Level: 1 Context: Other - See above Associated symptoms: denies: Chest pain, Sweaty Exacerbated by: Nothing Relieved by: Nothing - Related Data Allergies/Adverse Reactions: typhoid vaccine [Typhoid Vaccine] Allergy (Severe, Verified 11/23/16 13:58) Seizures Home Medications: Current Home Medications Amlodipine Besylate [Norvasc 5 mg Tablet] 5 mg PO DAILY 10/27/16 [History] Atorvastatin Calcium [Lipitor 20 mg Tablet] 20 mg PO QHS 10/27/16 [History] Lisinopril [Zestril] 40 mg PO DAILY 10/27/16 [History] Meloxicam [Mobic 15 mg Tablet] 15 mg PO QPM 10/27/16 [History] Metformin HCl [Glucophage] 500 mg PO DAILY 10/27/16 [History] Metoprolol Tartrate [Lopressor 50 mg Tablet] 50 mg PO QPM 10/27/16 [History] Omeprazole 20 mg PO QPM 10/27/16 [History] Oxycodone HCl [Oxycodone HCl 10 MG Tablet] 10 mg PO Q6HP PRN 10/27/16 [History] Warfarin Sodium [Coumadin 7.5 mg Tablet] 7.5 mg PO MOTUWETHSA 10/27/16 [History] Warfarin Sodium [Coumadin 7.5 mg Tablet] 11.25 mg PO SUFR 10/27/16 [History] Past Medical History - General Information source: Patient - Social History Smoking Status: Unknown if Ever Smoked Cigarette use (# per day): No Chew tobacco use (# tins/day): No Frequency of alcohol use: None Family History: Reviewed & Not Pertinent, CAD, Other - Mother lived to be 94. Father 68 Patient has suicidal ideation: No Patient has homicidal ideation: No - Past Medical History Cardiac Medical History: Reports: Hx Atrial Fibrillation, Hx Congestive Heart Failure - Diastolic dysfunction, Hx Coronary Artery Disease, Hx Heart Attack - [place] 08/2011, Hx Hypercholesterolemia, Hx Hypertension Denies: Hx Peripheral Vascular Disease, Hx Pulmonary Embolism, Hx Heart Murmur Pulmonary Medical History: Reports: Hx Bronchitis, Hx Pneumonia, Hx Sleep Apnea - uses CPAP, had throat/chin surgery d/t Sleep Apnea Denies: Hx Asthma, Hx COPD, Hx Respiratory Failure, Hx Tuberculosis Neurological Medical History: Denies: Hx Cerebrovascular Accident, Hx Seizures Endocrine Medical History: Reports: Hx Diabetes Mellitus Type 2. Denies: Hx Graves' Disease, Hx Hyperthyroidism, Hx Hypothyroidism Renal/ Medical History: Denies: Hx Peritoneal Dialysis Malignancy Medical History: Denies Hx Leukemia, Denies Hx Lung Cancer GI Medical History: Reports: Hx Gastroesophageal Reflux Disease, Hx Hiatal Hernia, Hx Ulcer. Denies: Hx Crohn's Disease, Hx Irritable Bowel, Hx Liver Failure Musculoskeltal Medical History: Reports Hx Arthritis, Denies Hx Fibromyalgia, Denies Hx Multiple Sclerosis, Denies Hx Muscular Dystrophy Psychiatric Medical History: Reports: Hx Depression, Hx Post Traumatic Stress Disorder Denies: Hx Bipolar Disorder, Hx Dementia, Hx Schizophrenia Traumatic Medical History: Denies: Hx Fractures Infectious Medical History: Denies: Hx HIV Past Surgical History: Reports: Hx Cardiac Catheterization, Hx Coronary Stent - x2 2011, Hx Orthopedic Surgery, Hx Tonsillectomy - and adenoids. Denies: Hx Appendectomy, Hx Bowel Surgery, Hx Cholecystectomy, Hx Colostomy, Hx Coronary Artery Bypass Graft, Hx Gastric Bypass Surgery, Hx Herniorrhaphy, Hx Pacemaker - Immunizations Hx Diphtheria, Pertussis, Tetanus Vaccination: No Hx Pneumococcal Vaccination: 04/14/16 Review of Systems - Review of Systems Constitutional: Chills. denies: Fever Cardiovascular: denies: Chest pain, Palpitations Respiratory: denies: Short of breath Gastrointestinal: denies: Vomiting Skin: denies: Rash Neurological/Psychological: Other - no slurred speech -: Yes All other systems reviewed and negative Physical Exam - Vital signs Vitals: Temp Pulse Resp BP Pulse Ox 97.8 F 83 16 142/87 H 97 10/27/16 15:07 10/27/16 15:07 10/27/16 15:07 10/27/16 15:07 10/27/16 15:07 Notes: Reviewed vital signs and nursing note as charted by RN. CONSTITUTIONAL: Alert and oriented and responds appropriately to questions. Well -appearing; well-nourished HEAD: Normocephalic; atraumatic CARD: Regular rate and rhythm; no murmurs, no clicks, no rubs, no gallops; symmetric distal pulses RESP: Normal chest excursion without splinting or tachypnea; breath sounds clear and equal bilaterally; no wheezes, no rhonchi, no rales ABD/GI: Normal bowel sounds; non-distended; soft, non-tender BACK: The back appears normal and is non-tender to palpation EXT: Patient has strips to the anterior knee. There is a small area of dehiscence to the lower part of the scar. Patient is able to flex to 90 and extend almost completely. Neurovascular intact distally. One to 2+ pitting edema to the shins. SKIN: Normal color for age and race; warm; dry; good turgor; capillary refill < 2 seconds; no acute lesions noted NEURO: Moves all extremities equally; Motor and sensory function intact PSYCH: The patient's mood and manner are appropriate. Grooming and personal hygiene are appropriate. Course - Re-evaluation Re-evalutation: 10/27/16 15:21 Given the history and physical examination, we will obtain basic labs, coag relation profile, and an EKG for possible preoperative workup. I have paged with a [facility] transportation aid. - Vital Signs Vital signs: Temp Pulse Resp BP Pulse Ox 98.3 F 81 24 H 105/62 99 11/06/16 17:06 11/06/16 17:06 11/06/16 17:06 11/06/16 17:06 11/06/16 17:06 - Laboratory Result Diagrams: 11/06/16 07:45 11/06/16 07:45 Discharge - Discharge Clinical Impression: Right leg pain Condition: Good Disposition: ADMITTED INPATIENT Admitting Provider: Dr. Mayes/OR
[2016-10-27 17:53] LABS: ABSOLUTE BASOPHILS # (AUTO) 0.1 10^3/uL (0.0-0.2); ABSOLUTE EOSINOPHILS # (AUTO) 0.1 10^3/uL (0.0-0.6); ABSOLUTE LYMPHOCYTES (AUTO) 3.5 10^3/uL (0.5-4.7); ABSOLUTE MONOCYTES (AUTO) 0.9 10^3/uL (0.1-1.4); ABSOLUTE NEUT (AUTO) 5.4 10^3/uL (1.7-8.2); HEMATOCRIT 39.6 % (37.9-51.0); HEMOGLOBIN 12.5 g/dL (13.5-17.0); HGB HCT DIFFERENCE -2.1; LYMPHOCYTES % (AUTO) 35.3 % (13-45); MEAN CORPUSCULAR HGB CONC 31.6 g/dL (32.0-36.0); MEAN CORPUSCULAR VOLUME 86 fl (80-97); MONOCYTES % (AUTO) 8.7 % (3-13); RED BLOOD COUNT 4.62 10^6/uL (4.35-5.55); RED CELL DISTRIBUTION WIDTH 14.4 % (11.5-14.0)
[2016-10-27 18:28] LABS: ANION GAP 14 (5-19); BLOOD UREA NITROGEN 19 mg/dL (7-20); CARBON DIOXIDE 25 mmol/L (22-30); CHLORIDE 103 mmol/L (98-107); GLUCOSE 92 mg/dL (75-110); POTASSIUM 4.8 mmol/L (3.6-5.0); SODIUM 141.9 mmol/L (137-145)
[2016-10-27 19:02] LABS: PROTHROMBIN TIME 25.3 SEC (11.4-15.4)
[2016-10-27] MEDS ORDERED: SUCCINYLCHOLINE CHLORIDE INJ 200 MG/10 ML VIAL ONE (19:12)
--- NOTE | 2016-10-27 20:12 | PDOC H&P ---
History of Present Illness Patient complains of: Right Knee Wound S/P TKA History of Present Illness: DONALD ELDER is a 60 year old male status post right total knee arthroplasty . Patient initially was doing well until he developed swelling and redness on 10/10/16 and was admitted for IV antibiotics. This subsequently resolved but he noticed over the past 48 hours increasing drainage and foul smell from the knee. Denies any fever chills or sweats. Denies increased pain. Current pain 08/21. Denies Injury Past Medical History Cardiac Medical History: Reports: Atrial Fibrillation, Congestive Heart Failure - Diastolic dysfunction, Coronary Artery Disease, Myocardial Infarction - [place] 2011, Hyperlipidema, Hypertension Denies: Peripheral Vascular Disease, Pulmonary Embolism, Heart Murmur Pulmonary Medical History: Reports: Bronchitis, Pneumonia, Sleep Apnea - uses CPAP, had throat/chin surgery d/t Sleep Apnea Denies: Asthma, Chronic Obstructive Pulmonary Disease (COPD), Respiratory Failure, Tuberculosis Neurological Medical History: Denies: Seizures Endocrine Medical History: Reports: Diabetes Mellitus Type 2 Denies: Hyperthyroidism, Hypothyroidism Malignancy Medical History: Denies: Leukemia, Lung Cancer GI Medical History: Reports: Gastroesophageal Reflux Disease, Hiatal Hernia Denies: Crohn's Disease Musculoskeltal Medical History: Reports: Arthritis Denies: Fibromyalgia Psychiatric Medical History: Reports: Depression, Post Traumatic Stress Disorder Denies: Bipolar Disorder, Dementia Hematology: Denies: Anemia, Hemophilia, Sickle Cell Disease Infectious Medical History: Denies: HIV Past Surgical History Past Surgical History: Reports: Cardiac Catheterization, Coronary Stent - x2 2011, Orthopedic Surgery, Tonsillectomy - and adenoids Denies: Appendectomy, Cholecystectomy, Colostomy, Coronary Artery Bypass Graft, Gastric Bypass Surgery, Herniorrhaphy, Pacemaker Social History Smoking Status: Unknown if Ever Smoked Frequency of Alcohol Use: None Hx Recreational Drug Use: No Drugs: None Hx Prescription Drug Abuse: No Family History Family History: Reviewed & Not Pertinent, CAD, Other - Mother lived to be 94. Father 68 Parental Family History Reviewed: No Children Family History Reviewed: No Sibling(s) Family History Reviewed.: No Medication/Allergy Home Medications: Amlodipine Besylate [Norvasc 5 mg Tablet] 5 mg PO DAILY 10/27/16 Atorvastatin Calcium [Lipitor 20 mg Tablet] 20 mg PO QHS 10/27/16 Lisinopril [Zestril] 40 mg PO DAILY 10/27/16 Meloxicam [Mobic 15 mg Tablet] 15 mg PO QPM 10/27/16 Metformin HCl [Glucophage] 500 mg PO DAILY 10/27/16 Metoprolol Tartrate [Lopressor 50 mg Tablet] 50 mg PO QPM 10/27/16 Omeprazole 20 mg PO QPM 10/27/16 Oxycodone HCl [Oxycodone HCl 10 MG Tablet] 10 mg PO Q6HP PRN 10/27/16 Warfarin Sodium [Coumadin 7.5 mg Tablet] 7.5 mg PO MOTUWETHSA 10/27/16 Warfarin Sodium [Coumadin 7.5 mg Tablet] 11.25 mg PO SUFR 10/27/16 Oxycodone HCl [Oxy-Ir 5 mg Tablet] 5 mg PO Q6HP PRN #0 tablet 11/06/16 Warfarin Sodium [Coumadin 5 mg Tablet] 15 mg PO QHS #0 tablet 11/06/16 Allergies/Adverse Reactions: typhoid vaccine [Typhoid Vaccine] Allergy (Severe, Verified 10/27/16 15:16) Seizures Review of Systems Constitutional: ABSENT: chills, fever(s), headache(s), weight gain, weight loss Eyes: ABSENT: visual disturbances Ears: ABSENT: hearing changes Cardiovascular: ABSENT: chest pain, dyspnea on exertion, edema, orthropnea, palpitations Respiratory: ABSENT: cough, hemoptysis Gastrointestinal: ABSENT: abdominal pain, constipation, diarrhea, hematemesis, hematochezia, nausea, vomiting Genitourinary: ABSENT: dysuria, hematuria Integumentary: PRESENT: erythema, wounds. ABSENT: rash Neurological: ABSENT: abnormal gait, abnormal speech, confusion, dizziness, focal weakness, syncope Psychiatric: ABSENT: anxiety, depression, homidical ideation, suicidal ideation Endocrine: ABSENT: cold intolerance, heat intolerance, menstrual abnormalities, polydipsia, polyuria Hematologic/Lymphatic: ABSENT: easy bleeding, easy bruising, lymphadenopathy Physical Exam General appearance: PRESENT: no acute distress, cooperative Head exam: PRESENT: atraumatic, normocephalic Mouth exam: PRESENT: moist Respiratory exam: PRESENT: unlabored Cardiovascular exam: PRESENT: RRR Pulses: PRESENT: +2 pedal pulses bilateral Vascular exam: PRESENT: normal capillary refill GI/Abdominal exam: PRESENT: normal bowel sounds Musculoskeletal exam: PRESENT: other - Right knee: Surgical incision healed proximal. There is area of dehiscence without order distally. Currently no active drainage tenderness to palpation. Knee range of motion 0/100. No calf tenderness. Intact plantar flexion/dorsiflexion. No sensory deficits. Neurological exam: PRESENT: alert, altered, awake, oriented to person, oriented to place, oriented to time, oriented to situation, CN II-XII grossly intact Psychiatric exam: PRESENT: normal mood Assessment & Plan - Diagnosis (1) Infection of total right knee replacement Is this a current diagnosis for this admission?: YesPlan: Patient status post right total knee arthroplasty. Currently there is evidence of dehiscence and superficial infection there is no signs or symptoms to suggest deep infection. Given the foul-smelling and recurrent drainage I have recommended operative intervention. I feel operative intervention is more urgent/emergent need because of patient's infection continued to track distally at the level of the prosthesis he is certainly at high risk for deep infection which would require more extensive operative procedure including explant with placement of antibiotic spacer patient's INR is elevated he will be typed and crossed at this point I feel the risk of the infection is greater than normalizing his INR and delaying operative treatment. We will start the patient on vancomycin and rifampin until cultures have been finalized and complete.
[2016-10-27] MEDS ORDERED: FENTANYL CITRATE INJ/PF 100 MCG/2 ML AMPUL ONE ×2 (21:23→21:24)
[2016-10-27] MEDS ORDERED: DEXAMETHASONE SOD PHOSPHATE INJ 4 MG/1 ML VIAL ONE (21:24)
[2016-10-27] MEDS ORDERED: MORPHINE SULFATE 10 MG/ML INJ ONE (21:24)
[2016-10-27] MEDS ORDERED: PROPOFOL INJ 200 MG/20 ML VIAL IV ONE (21:24)
[2016-10-27] MEDS ORDERED: ONDANSETRON HCL INJ/PF 4 MG/2 ML SDV ONE (21:24)
[2016-10-27] MEDS ORDERED: MIDAZOLAM 2 MG/2 ML INJ ONE (21:24)
--- NOTE | 2016-10-27 22:14 | EKG REPORT ---
SEVERITY:- NORMAL ECG - SINUS RHYTHM : Confirmed by: Yuliet Moya MD 27-Oct-2016 22:13:37
[2016-10-27] MEDS ORDERED: VANCOMYCIN HCL INJ 1000 MG VIAL ONE (22:25)
[2016-10-27] MEDS ORDERED: ZOLPIDEM TARTRATE 5 MG TABLET PO PRN (23:31)
[2016-10-27] MEDS ORDERED: DIPHENHYDRAMINE HCL 50 MG/ML VIAL IV PRN (23:31)
[2016-10-27] MEDS ORDERED: MORPHINE SULFATE 10 MG/ML INJ IV PRN ×2 (23:31)
[2016-10-27] MEDS ORDERED: MORPHINE SULFATE 10 MG/ML INJ IM PRN (23:31)
[2016-10-27] MEDS ORDERED: ONDANSETRON 4 MG TAB.RAPDIS PO PRN (23:31)
[2016-10-27] MEDS: FENTANYL CITRATE INJ/PF 100 MCG/2 ML AMPUL ONE ×2 (23:41→23:52)
--- NOTE | 2016-10-27 23:46 | Operative Report ---
Operative Report DATE OF SURGERY: 10/27/16 PREOPERATIVE DIAGNOSIS: Superficial Infection Right TKA POSTOPERATIVE DIAGNOSIS: Same OPERATION: I&D Deep Wound Infection Right TKA, With Polyethylene Exchange SURGEON: MARISSA SERNA ANESTHESIA: GA TISSUE REMOVED OR ALTERED: Aerobic/Anaerobic Culture COMPLICATIONS: None ESTIMATED BLOOD LOSS: Minimal PROCEDURE: Indication for above procedure: DONALD ELDER is a 60 year old male status post right total knee arthroplasty . Patient initially was doing well until he developed swelling and redness on 10/10/16 and was admitted for IV antibiotics. This subsequently resolved but he noticed over the past 48 hours increasing drainage and foul smell from the knee. Given patient's history of previous drainage and his high risk for possible periprosthetic infection the joint decision was made to proceed with operative intervention which includes irrigation and debridement possible polyethylene exchange right knee. Procedure In Detail: Patient was seen and evaluated in the preoperative holding area. The Right lower extremity was initialized and marked. Antibiotics held until cultures obtained. Patient was taken back to the operative room where transferred to the operative table and placed under general anesthesia. Once they were adequately anesthetized a nonsterile tourniquet was placed on the lower extremity. A surgical team debriefing was performed ensuring all instrumentation was available, the surgical procedure was discussed with possible concerns reviewed. The lower extremity was prepped with Duraprep and draped in a sterile fashion. A timeout was done identifying correct patient, procedure and extremity everyone in attendance agree with this and verbalized no concerns. The extremity was elevated the tourniquet was inflated to 300 mmHg. Patient's previous skin incision was utilized. Blunt dissection was performed there was evidence of nonviable tissue along the distal aspect of the wound furthermore there was extension into the joint at the level of the prosthesis distally. No gross purulence was appreciated. I then performed a capsulotomy via then medial parapatellar approach. Any nonviable tissue was excised. Once again close inspection of the joint demonstrated no evidence of deep purulence. Superficial and deep cultures were obtained and sent to microbiology for culture and sensitivity. Once cultures were obtained patient received 1 g of vancomycin. The wound was then copiously irrigated with pulse lavage mixed bacitracin saline. I then proceeded with explantation of the polyethylene insert once again copiously irrigated the wound with normal saline. A total of 6 L of normal saline with pulse lavage was utilized. Previous absorbable Vicryl sutures were removed at the level of the capsular closure and the subcutaneous tissues. A peripheral vasculature was coagulated with Bovie cautery. I then exchanged the polyethylene utilizing patient's previous size 7, 9 mm Faheem cruciate retraining polyethylene insert. The first polyethylene insert was damaged upon insertion and thus a second one was required there is no evidence of liftoff of the polyethylene insert under direct inspection and visualization. I then placed a size 15 Pierre drain through the lateral aspect of the knee wound. The medial parapatellar approach was closed with interrupted 0 PDS sutures. Subcutaneous tissues were closed with interrupted PDS sutures. Skin was closed with isha. Wound was dressed with Acticoat and a soft dressing. Sponge counts, instrument counts, needle counts counts were correct. Patient was then awoken from anesthesia. Transferred from the operating room table to the operating room stretcher. There was no intraoperative complications patient tolerated procedure well stable to PACU. Postoperative plan: We will obtain a PICC line given patient's deep knee infection he will require 6 weeks of IV antibiotics once culture sensitivities are complete. We will start him on Cipro due to the foul odor on vancomycin. Unfortunately patient is unable to take rifampin given his Coumadin. Once the PICC line has been placed he can restart on his Coumadin. I will also consult Dr. Jeffery for diabetic management.
[2016-10-27] MEDS: METOPROLOL TARTRATE PF/INJ 5 MG/5 ML SDV IV ONE (23:58)
[2016-10-28] MEDS: METOPROLOL TARTRATE PF/INJ 5 MG/5 ML SDV IV ONE (00:18)
[2016-10-28] MEDS: HYDROMORPHONE HCL INJ/PF 2 MG/ML AMPULE ONE ×2 (00:30)
[2016-10-28] MEDS: METOPROLOL TARTRATE 25 MG TABLET ONE ×2 (00:53→02:40)
[2016-10-28] MEDS: AMLODIPINE BESYLATE 5 MG TABLET ONE ×2 (00:53→02:40)
[2016-10-28] MEDS ORDERED: ACETAMINOPHEN 100 ML IV ONE ×2 (05:14→05:31)
[2016-10-28] MEDS: METFORMIN HCL 500 MG TABLET PO SCH (08:00)
[2016-10-28] MEDS: ENOXAPARIN SODIUM INJ 30 MG/0.3 ML DISP.SYRIN SUBCUT SCH (08:00)
[2016-10-28] MEDS ORDERED: RIFAMPIN 300 MG CAPSULE PO SCH (08:00)
[2016-10-28] MEDS ORDERED: VANCOMYCIN HCL INJ 1000 MG VIAL IV SCH (10:00)
[2016-10-28] MEDS: OXYCODONE HCL SR 10 MG TABLET PO SCH ×2 (10:00→22:38)
[2016-10-28] MEDS: LISINOPRIL 10 MG TABLET PO SCH (10:00)
[2016-10-28] MEDS: PREGABALIN 75 MG CAPSULE PO SCH ×2 (10:00→18:00)
[2016-10-28] MEDS: AMLODIPINE BESYLATE 5 MG TABLET PO SCH (10:00)
[2016-10-28] MEDS: CIPROFLOXACIN 400 MG/D5W RTU 400 MG/200 ML RTUPB IV SCH ×2 (10:00→22:37)
[2016-10-28] MEDS ORDERED: MELOXICAM 15 MG TABLET PO SCH (18:00)
[2016-10-28] MEDS: METOPROLOL TARTRATE 50 MG TABLET PO SCH (18:00)
[2016-10-28] MEDS: ATORVASTATIN CALCIUM 20 MG TABLET PO SCH (22:37)
[2016-10-28] MEDS: MORPHINE SULFATE 10 MG/ML INJ IV PRN (22:38)
[2016-10-29] MEDS: LANSOPRAZOLE 30 MG TAB.RAP.DR PO SCH (07:05)
[2016-10-29] MEDS: MORPHINE SULFATE 10 MG/ML INJ IV PRN ×3 (07:05→23:48)
--- NOTE | 2016-10-29 07:33 | PDOC PROGRESS REPORT ---
Subjective Progress Note for:: 10/29/16 Subjective:: Pain tolerable. No issues overnight. Denies fever/chills/sweats Physical Exam Vital Signs: Temp Pulse Resp BP Pulse Ox 100.0 F 80 21 H 131/79 H 94 10/28/16 23:23 10/28/16 23:23 10/28/16 23:23 10/28/16 23:23 10/29/16 04:00 Pulse Oximeter Continuous Start: 10/28/16 02: 16 Freq: RTQ4 Status: Complete Document 10/28/16 03:35 STI (Rec: 10/28/16 03:36 STI [id number]) Pulse Oximetry Assessment Oxygen Saturation (92-100) 96 Oxygen Flow Rate (L/min) 2.0 Oxygen Delivery Method Nasal Cannula Fraction of Inspired Oxygen (FIO2) 28 Equipment Usage Equipment in Use Continuous SpO2 Machine # N-1 Pulse Oximeter Continuous Start: 10/28/16 03: 52 Freq: RTQ4 Status: Active Document 10/29/16 04:00 LRO (Rec: 10/29/16 07:14 LRO [id number]) Pulse Oximetry Assessment Oxygen Saturation (92-100) 94 Oxygen Delivery Method Room Air Equipment Usage Equipment in Use Continuous SpO2 Machine # 1 Intake & Output 10/28/16 10/29/16 10/30/16 06:59 06:59 06:59 Intake Total 7498 1000 Output Total 50 1900 Balance 7448 -900 Weight 120.5 kg Musculoskeletal exam: PRESENT: other - Right Knee: Drain intact. Dressing clean /dry/intact. Intact PF/DF. No Calf Tenderness Results Laboratory Results: 10/27/16 17:40 10/27/16 17:40 Impressions: Chest X-Ray 10/27/16 00:00 IMPRESSION: NO ACUTE RADIOGRAPHIC FINDING IN THE CHEST. Assessment & Plan - Diagnosis (1) Infection of total right knee replacement Qualifiers: Encounter type: subsequent encounter Qualified Code(s): T84.53XD - Infection and inflammatory reaction due to internal right knee prosthesis, subsequent encounter; Z96.651 - Presence of right artificial knee joint Is this a current diagnosis for this admission?: YesPlan: POD 2 I&D R TKA w/ Poly Change 1. Vanco/Cipro until Cx Final 2. PICC Line Patient will require 6 weeks of IV Abx 3. Restart Coumadin once PICC Line in place 4. D/C When Cx Final and patient set up for home IV Abx
[2016-10-29 07:41] LABS: ABSOLUTE BASOPHILS # (AUTO) 0.2 10^3/uL (0.0-0.2); ABSOLUTE LYMPHOCYTES (AUTO) 3.7 10^3/uL (0.5-4.7); ABSOLUTE MONOCYTES (AUTO) 1.7 10^3/uL (0.1-1.4); ABSOLUTE NEUT (AUTO) 10.2 10^3/uL (1.7-8.2); BASOPHILS % (AUTO) 1.2 % (0-2); EOSINOPHILS % (AUTO) 0.2 % (0-6); HEMATOCRIT 36.8 % (37.9-51.0); HGB HCT DIFFERENCE -0.8; MEAN CORPUSCULAR HEMOGLOBIN 27.9 pg (27.0-33.4); MEAN CORPUSCULAR HGB CONC 32.7 g/dL (32.0-36.0); MEAN CORPUSCULAR VOLUME 86 fl (80-97); RED CELL DISTRIBUTION WIDTH 14.1 % (11.5-14.0); SEGMENTED NEUTROPHILS % (AUTO) 64.6 % (42-78); WHITE BLOOD COUNT 15.8 10^3/uL (4.0-10.5)
[2016-10-29 07:51] LABS: PROTHROMBIN TIME 20.9 SEC (11.4-15.4)
[2016-10-29 08:08] LABS: ANION GAP 12 (5-19); BLOOD UREA NITROGEN 14 mg/dL (7-20); CALCIUM 9.5 mg/dL (8.4-10.2); CARBON DIOXIDE 25 mmol/L (22-30); CHLORIDE 99 mmol/L (98-107); GLUCOSE 128 mg/dL (75-110); POTASSIUM 4.5 mmol/L (3.6-5.0); SODIUM 135.6 mmol/L (137-145)
[2016-10-29] MEDS: ENOXAPARIN SODIUM INJ 30 MG/0.3 ML DISP.SYRIN SUBCUT SCH (09:37)
[2016-10-29] MEDS: LISINOPRIL 10 MG TABLET PO SCH (09:44)
[2016-10-29] MEDS: PREGABALIN 75 MG CAPSULE PO SCH ×2 (09:44→18:06)
[2016-10-29] MEDS: METFORMIN HCL 500 MG TABLET PO SCH (09:44)
[2016-10-29] MEDS: OXYCODONE HCL SR 10 MG TABLET PO SCH ×2 (09:45→21:29)
[2016-10-29] MEDS: AMLODIPINE BESYLATE 5 MG TABLET PO SCH (09:45)
[2016-10-29] MEDS: CIPROFLOXACIN 400 MG/D5W RTU 400 MG/200 ML RTUPB IV SCH ×2 (09:45→21:30)
[2016-10-29] MEDS: VANCOMYCIN HCL 1,000 MG in DEXTROSE 5%-WATER 250 ML IV SCH ×2 (12:00→18:06)
[2016-10-29 13:52] LABS: HEMATOCRIT 38.7 % (37.9-51.0); HEMOGLOBIN 12.4 g/dL (13.5-17.0); HGB HCT DIFFERENCE -1.5; MEAN CORPUSCULAR HGB CONC 32.1 g/dL (32.0-36.0); MEAN CORPUSCULAR VOLUME 87 fl (80-97); RED BLOOD COUNT 4.45 10^6/uL (4.35-5.55); RED CELL DISTRIBUTION WIDTH 14.3 % (11.5-14.0); WHITE BLOOD COUNT 13.3 10^3/uL (4.0-10.5)
[2016-10-29] MEDS: METOPROLOL TARTRATE 50 MG TABLET PO SCH (18:06)
[2016-10-29 18:36] LABS: CREATININE RESULT 1.08 mg/dL (0.52-1.25)
[2016-10-29] MEDS: ATORVASTATIN CALCIUM 20 MG TABLET PO SCH (21:29)
[2016-10-29] MEDS: NORMAL SALINE 10 ML SDV (AFTER EACH USE) IV PRN (21:29)
[2016-10-29] MEDS: NORMAL SALINE 10 ML SDV (SCHEDULED) IV SCH (21:29)
[2016-10-30] MEDS: VANCOMYCIN HCL 1,500 MG in DEXTROSE 5%-WATER 250 ML IV SCH ×3 (01:43→18:09)
[2016-10-30] MEDS: NORMAL SALINE 10 ML SDV (AFTER EACH USE) IV PRN ×2 (03:42→05:52)
[2016-10-30] MEDS: LANSOPRAZOLE 30 MG TAB.RAP.DR PO SCH (05:52)
[2016-10-30] MEDS: MORPHINE SULFATE 10 MG/ML INJ IV PRN ×2 (05:52→20:25)
[2016-10-30 06:27] LABS: ABSOLUTE BASOPHILS # (AUTO) 0.2 10^3/uL (0.0-0.2); ABSOLUTE EOSINOPHILS # (AUTO) 0.1 10^3/uL (0.0-0.6); ABSOLUTE LYMPHOCYTES (AUTO) 3.9 10^3/uL (0.5-4.7); ABSOLUTE MONOCYTES (AUTO) 1.8 10^3/uL (0.1-1.4); ABSOLUTE NEUT (AUTO) 8.3 10^3/uL (1.7-8.2); BASOPHILS % (AUTO) 1.3 % (0-2); HEMATOCRIT 33.8 % (37.9-51.0); HEMOGLOBIN 10.7 g/dL (13.5-17.0); HGB HCT DIFFERENCE -1.7; LYMPHOCYTES % (AUTO) 27.4 % (13-45); MEAN CORPUSCULAR HEMOGLOBIN 27.9 pg (27.0-33.4); MEAN CORPUSCULAR HGB CONC 31.7 g/dL (32.0-36.0); MEAN CORPUSCULAR VOLUME 88 fl (80-97); MONOCYTES % (AUTO) 12.4 % (3-13); RED BLOOD COUNT 3.84 10^6/uL (4.35-5.55); RED CELL DISTRIBUTION WIDTH 14.3 % (11.5-14.0); SEGMENTED NEUTROPHILS % (AUTO) 57.9 % (42-78); WHITE BLOOD COUNT 14.3 10^3/uL (4.0-10.5)
[2016-10-30 06:37] LABS: PROTHROMBIN TIME 17.5 SEC (11.4-15.4)
[2016-10-30 06:44] LABS: ANION GAP 9 (5-19); BLOOD UREA NITROGEN 18 mg/dL (7-20); CALCIUM 9.3 mg/dL (8.4-10.2); CARBON DIOXIDE 27 mmol/L (22-30); CHLORIDE 99 mmol/L (98-107); CREATININE RESULT 1.19 mg/dL (0.52-1.25); GLUCOSE 108 mg/dL (75-110); POTASSIUM 4.4 mmol/L (3.6-5.0); SODIUM 134.7 mmol/L (137-145)
[2016-10-30] MEDS: ENOXAPARIN SODIUM INJ 30 MG/0.3 ML DISP.SYRIN SUBCUT SCH (10:04)
[2016-10-30] MEDS: METFORMIN HCL 500 MG TABLET PO SCH (10:06)
[2016-10-30] MEDS: PREGABALIN 75 MG CAPSULE PO SCH ×2 (10:06→18:05)
[2016-10-30] MEDS: AMLODIPINE BESYLATE 5 MG TABLET PO SCH (10:06)
[2016-10-30] MEDS: LISINOPRIL 10 MG TABLET PO SCH (10:07)
[2016-10-30] MEDS: OXYCODONE HCL IR 5 MG TABLET PO PRN ×2 (10:07→18:05)
[2016-10-30] MEDS: CIPROFLOXACIN 400 MG/D5W RTU 400 MG/200 ML RTUPB IV SCH ×2 (10:21→21:23)
[2016-10-30] MEDS ORDERED: WARFARIN SODIUM PO SCH (12:45)
--- NOTE | 2016-10-30 13:50 | PDOC PROGRESS REPORT ---
Subjective Subjective:: Patient seen and evaluated this morning. No issues. He has undergone PT with minimal limitation and walk 300 feet. Denies fever chills or sweats. Physical Exam Vital Signs: Temp Pulse Resp BP Pulse Ox 99.5 F 87 19 95/71 L 96 10/30/16 11:33 10/30/16 11:33 10/30/16 11:33 10/30/16 11:33 10/30/16 12:00 Pulse Oximeter Continuous Start: 10/28/16 02: 16 Freq: RTQ4 Status: Complete Document 10/28/16 03:35 STI (Rec: 10/28/16 03:36 STI [id number]) Pulse Oximetry Assessment Oxygen Saturation (92-100) 96 Oxygen Flow Rate (L/min) 2.0 Oxygen Delivery Method Nasal Cannula Fraction of Inspired Oxygen (FIO2) 28 Equipment Usage Equipment in Use Continuous SpO2 Machine # N-[id number] Pulse Oximeter Continuous Start: 10/28/16 03: 52 Freq: RTQ4 Status: Active Document 10/30/16 12:00 LDA (Rec: 10/30/16 12:31 LDA [id number]) Pulse Oximetry Assessment Oxygen Saturation (92-100) 96 Oxygen Delivery Method Room Air Fraction of Inspired Oxygen (FIO2) 21 Equipment Usage Equipment in Use Continuous SpO2 Machine # 1 Intake & Output 10/29/16 10/30/16 10/31/16 06:59 06:59 06:59 Intake Total 1006 3020 360 Output Total 1900 2320 25 Balance -894 700 335 Weight 120.5 kg Musculoskeletal exam: PRESENT: other - Right knee: Dressing change today. Wound well approximated no erythema or drainage. Drain remains intact with serosanguineous drainage. Intact plantar flexion/dorsiflexion. No calf tenderness. Results Laboratory Results: 10/30/16 06:00 10/30/16 06:00 10/28/16 10/29/16 10/30/16 06:57 18:00 06:00 WBC 13.3 H 14.3 H RBC 4.45 3.84 L Hgb 12.4 L 10.7 L Hct 38.7 33.8 L MCV 87 88 MCH 28.0 27.9 MCHC 32.1 31.7 L RDW 14.3 H 14.3 H Plt Count 399 291 Seg Neutrophils % 57.9 Lymphocytes % 27.4 Monocytes % 12.4 Eosinophils % 1.0 Basophils % 1.3 Absolute Neutrophils 8.3 H Absolute Lymphocytes 3.9 Absolute Monocytes 1.8 H Absolute Eosinophils 0.1 Absolute Basophils 0.2 Sodium Potassium Chloride Carbon Dioxide Anion Gap BUN Creatinine 1.08 Est GFR ( Amer) > 60 Est GFR (Non-Af Amer) > 60 Glucose Calcium 10/30/16 06:00 WBC RBC Hgb Hct MCV MCH MCHC RDW Plt Count Seg Neutrophils % Lymphocytes % Monocytes % Eosinophils % Basophils % Absolute Neutrophils Absolute Lymphocytes Absolute Monocytes Absolute Eosinophils Absolute Basophils Sodium 134.7 L Potassium 4.4 Chloride 99 Carbon Dioxide 27 Anion Gap 9 BUN 18 Creatinine 1.19 Est GFR ( Amer) > 60 Est GFR (Non-Af Amer) > 60 Glucose 108 Calcium 9.3 Impressions: Chest X-Ray 10/27/16 00:00 IMPRESSION: NO ACUTE RADIOGRAPHIC FINDING IN THE CHEST. PICC Line Insertion 10/27/16 00:00 IMPRESSION: SUCCESSFUL PLACEMENT OF A 5 FR DUAL LUMEN 44 CM PICC IN THE left basilic VEIN. Guidance Fluoroscopy 10/29/16 00:00 IMPRESSION: SUCCESSFUL PLACEMENT OF A 5 FR DUAL LUMEN 44 CM PICC IN THE left basilic VEIN. Interventional Vascular Procedure 10/29/16 00:00 IMPRESSION: SUCCESSFUL PLACEMENT OF A 5 FR DUAL LUMEN 44 CM PICC IN THE left basilic VEIN. Assessment & Plan - Diagnosis (1) Infection of total right knee replacement Qualifiers: Encounter type: subsequent encounter Qualified Code(s): T84.53XD - Infection and inflammatory reaction due to internal right knee prosthesis, subsequent encounter; Z96.651 - Presence of right artificial knee joint Is this a current diagnosis for this admission?: YesPlan: Status post I&D with polyethylene exchange right TKA 10/27/16 #1. Continue Cipro and vancomycin which should cover patient's gram-positive cocci and E. coli effectively. #2 we will restart patient's Coumadin and dc Lovenox once patient is therapeutic. #3 continue therapy limiting flexion to 45. #4 discharge planning once culture sensitivities are complete patient will be stable for discharge to home anticipate discharge in 24 hours if complete if not DC home on Wednesday.
[2016-10-30] MEDS: NORMAL SALINE 10 ML SDV (SCHEDULED) IV SCH ×2 (15:03→21:23)
[2016-10-30 16:23] LABS: BLOOD UREA NITROGEN 18 mg/dL (7-20); CREATININE RESULT 0.99 mg/dL (0.52-1.25)
[2016-10-30] MEDS: METOPROLOL TARTRATE 50 MG TABLET PO SCH (18:05)
[2016-10-30] MEDS: ATORVASTATIN CALCIUM 20 MG TABLET PO SCH (21:23)
[2016-10-30] MEDS ORDERED: WARFARIN SODIUM 7.5 MG TABLET PO SCH (22:00)
[2016-10-31] MEDS: VANCOMYCIN HCL 1,500 MG in DEXTROSE 5%-WATER 250 ML IV SCH ×3 (02:12→17:23)
[2016-10-31] MEDS: OXYCODONE HCL IR 5 MG TABLET PO PRN ×3 (02:12→16:10)
[2016-10-31] MEDS: LANSOPRAZOLE 30 MG TAB.RAP.DR PO SCH (06:44)
[2016-10-31] MEDS: METFORMIN HCL 500 MG TABLET PO SCH (08:52)
[2016-10-31] MEDS: ENOXAPARIN SODIUM INJ 30 MG/0.3 ML DISP.SYRIN SUBCUT SCH (08:52)
[2016-10-31] MEDS: CIPROFLOXACIN 400 MG/D5W RTU 400 MG/200 ML RTUPB IV SCH ×2 (11:01→22:49)
[2016-10-31] MEDS: LISINOPRIL 10 MG TABLET PO SCH (11:03)
[2016-10-31] MEDS: NORMAL SALINE 10 ML SDV (SCHEDULED) IV SCH ×2 (11:03→22:49)
[2016-10-31] MEDS: NORMAL SALINE 10 ML SDV (AFTER EACH USE) IV PRN (11:03)
[2016-10-31] MEDS: AMLODIPINE BESYLATE 5 MG TABLET PO SCH (11:04)
[2016-10-31] MEDS: PREGABALIN 75 MG CAPSULE PO SCH ×2 (11:04→17:23)
[2016-10-31] MEDS ORDERED: (PENDING PHARMACY ID) (Warfarin Sodium 7.5 MG) PO SCH (12:45)
--- NOTE | 2016-10-31 15:45 | PDOC PROGRESS REPORT ---
Subjective Progress Note for:: 10/31/16 Subjective:: Patient states she is doing fine. He did have a exacerbation of pain yesterday when he was getting up to the journal. Denies fever chills or sweats. Physical Exam Vital Signs: Temp Pulse Resp BP Pulse Ox 98.9 F 86 19 146/69 H 99 10/31/16 11:10 10/31/16 11:10 10/31/16 11:10 10/31/16 11:10 10/31/16 11:10 Pulse Oximeter Continuous Start: 10/28/16 02: 16 Freq: RTQ4 Status: Complete Document 10/28/16 03:35 STI (Rec: 10/28/16 03:36 STI [id number]) Pulse Oximetry Assessment Oxygen Saturation (92-100) 96 Oxygen Flow Rate (L/min) 2.0 Oxygen Delivery Method Nasal Cannula Fraction of Inspired Oxygen (FIO2) 28 Equipment Usage Equipment in Use Continuous SpO2 Machine # N-1 Pulse Oximeter Continuous Start: 10/28/16 03: 52 Freq: RTQ4 Status: Complete Document 10/31/16 08:00 LDA (Rec: 10/31/16 11:03 LDA [id number]) Pulse Oximetry Assessment Equipment Usage Equipment Discontinued Continuous SpO2 Machine # 1 Intake & Output 10/30/16 10/31/16 11/01/16 06:59 06:59 06:59 Intake Total 3020 3316 1460 Output Total 2320 570 1955 Balance 700 0817 -495 Musculoskeletal exam: PRESENT: other - Right lower extremity: Dressing change today. Continues to have serosanguineous drainage from the drainage site. Incision well approximated no erythema or drainage. No foul odor appreciated. Minimal effusion. No calf tenderness. Intact plantar flexion/dorsiflexion Results Laboratory Results: 10/30/16 06:00 10/30/16 06:00 10/28/16 06:57 BUN 18 Creatinine 0.99 Est GFR ( Amer) > 60 Est GFR (Non-Af Amer) > 60 10/27/16 22:11 Knee - Right Gram Stain - Final Impressions: Chest X-Ray 10/27/16 00:00 IMPRESSION: NO ACUTE RADIOGRAPHIC FINDING IN THE CHEST. PICC Line Insertion 10/27/16 00:00 IMPRESSION: SUCCESSFUL PLACEMENT OF A 5 FR DUAL LUMEN 44 CM PICC IN THE left basilic VEIN. Guidance Fluoroscopy 10/29/16 00:00 IMPRESSION: SUCCESSFUL PLACEMENT OF A 5 FR DUAL LUMEN 44 CM PICC IN THE left basilic VEIN. Interventional Vascular Procedure 10/29/16 00:00 IMPRESSION: SUCCESSFUL PLACEMENT OF A 5 FR DUAL LUMEN 44 CM PICC IN THE left basilic VEIN. Assessment & Plan - Diagnosis (1) Infection of total right knee replacement Qualifiers: Encounter type: subsequent encounter Qualified Code(s): T84.53XD - Infection and inflammatory reaction due to internal right knee prosthesis, subsequent encounter; Z96.651 - Presence of right artificial knee joint Is this a current diagnosis for this admission?: YesPlan: Status post I&D with polyethylene exchange right TKA 10/27/16 #1. Continue Cipro and vancomycin which should cover patient's gram-positive cocci and E. coli effectively. #2 we will restart patient's Coumadin and dc Lovenox once patient is therapeutic. #3 continue therapy limiting flexion to 45. #4 discharge planning once culture sensitivities are complete patient will be stable for discharge to home anticipate discharge in 24 hours if complete if not DC home on Wednesday.
[2016-10-31] MEDS ORDERED: DEXTROSE 40% GEL 15 GM TUBE PO PRN ×2 (16:17)
[2016-10-31] MEDS ORDERED: DEXTROSE 50%-WATER 25 GM/50 ML DISP.SYRIN IV PRN ×2 (16:17)
[2016-10-31] MEDS ORDERED: GLUCAGON,HUMAN RECOMB 1 MG INJ IM PRN (16:17)
[2016-10-31] MEDS ORDERED: INSULIN REG, HUMAN 100 UNIT/ML 3 ML VIAL (PYX) SUBCUT PRN (16:17)
[2016-10-31] MEDS: METOPROLOL TARTRATE 50 MG TABLET PO SCH (17:23)
--- NOTE | 2016-10-31 19:13 | CONSULTATION REPORT E ---
Consultation Report NAME: DONALD ELDER : 1955 AGE: 60Y DATE: 10/31/2016 TO: BARTOLO DOS SANTOS M.D. FROM: MARISSA SERNA D.O. Requesting Physician PRIMARY CARE PHYSICIAN: [facility]. REASON FOR CONSULTATION: Management of anticoagulation, diabetes. HISTORY OF PRESENT ILLNESS: The patient is a 60-year-old male who had a recent total knee replacement on the right. Apparently it got infected. The patient had fever as well as swelling and redness with pain on the mentioned extremity. The patient was admitted on 10/27/2016, where the patient underwent incision and drainage of the wound. The patient likewise had debridement. Culture was growing gram-positive cocci and gram-negative rods, one of them is E coli. The patient was on ciprofloxacin as well as vancomycin. The patient apparently had history of diabetes, but his blood sugar is not significantly uncontrolled. It ranges between 92 and 128. The patient also had history of atrial fibrillation and is on warfarin. He has warfarin of 7.5 mg during the week days except wednesday and wednesday, and the patient has 11.5 mg of warfarin subsequently on the other days. The patient's INR on monitoring was trending down. A consultation was therefore made for management of the patient. The patient denies any bleeding. Denies any chills or fever. Lower extremity swelling has improved. PAST MEDICAL HISTORY: 1. Atrial fibrillation. 2. Coronary artery disease. 3. Hyperlipidemia. 4. Degenerative joint disease. 5. Hypertension. 6. Type-2 diabetes mellitus. 7. Obstructive sleep apnea. 8. Obesity. 9. CHF, diastolic dysfunction. 10. Gastroesophageal reflux disease. 11. PTSD. 12. Hiatal hernia. PAST SURGICAL HISTORY: 1. Cardiac catheterization. 2. Knee replacement. 3. Tonsillectomy. ALLERGIES: TYPHOID VACCINE. SOCIAL HISTORY: The patient is a former smoker. Denies alcohol abuse or drug abuse. FAMILY HISTORY: Coronary artery disease and diabetes. CURRENT MEDICATIONS: 1. Norvasc 5 mg p.o. daily. 2. Lipitor 20 mg p.o. at bedtime. 3. Sliding scale insulin. 4. Lovenox 30 mg subcutaneously every morning. 5. Ciprofloxacin 400 mg q.12 h. 6. Sliding scale insulin. 7. Lisinopril 40 mg p.o. daily. 8. Metformin 500 mg p.o. in the morning. 9. Metoprolol 50 mg in the evening. 10. As needed morphine IV. 11. Zofran 4 mg p.o. every 6 hours as needed. 12. Oxycodone 5 mg every 6 hours as needed. 13. Lyrica 75 mg p.o. twice a day. 14. Vancomycin 1.5 g IV q.8 h. 15. Ambien 5 mg p.o. at bedtime as needed. 16. Warfarin 11.25 mg p.o. every Wednesday and Wednesday, and 7.5 mg every Wednesday, Wednesday, Wednesday, , and Wednesday. REVIEW OF SYSTEMS: Currently the patient denies any headache, dizziness, or syncope. No chills, fever, myalgias, and arthralgia is noted in the knee but better. No sinus congestion, postnasal drip, or sneezing. No sore throat. No swollen glans in the neck. No cough or hemoptysis. No neck pain or stiffness. The patient has some chest discomfort on the right with movement of the upper extremity, otherwise no PND or orthopnea. No left-sided chest pain. No shortness of breath or wheezing. No abdominal pain, nausea, or vomiting. No diarrhea or constipation. No melena, hematochezia, hematemesis. No dysuria, urgency, or frequency. No hematuria. No heat and cold intolerance. No profuse sweating. No weight gain or weight loss. No polyuria, polydipsia, polyphagia. No focal weakness. No swallowing difficulty. All other systems reviewed with the patient, other than stated above, are negative. PHYSICAL EXAMINATION: GENERAL: The patient is conscious, coherent. He is not in acute distress at the moment. VITAL SIGNS: Blood pressure 158/68, pulse 88, respirations 17, temperature 99 degrees Fahrenheit. The patient is overweight. HEENT: Normocephalic/atraumatic. [place] palpebral conjunctivae. Anicteric sclerae. Pupils are reactive to light. No nasal or oral discharge. No pharyngeal congestion. NECK: Supple with no JVD or bruit. No anterior neck mass noticed with swallowing. CHEST: Symmetrical in expansion with no retraction. LUNGS: Clear to auscultation bilateral. No wheezing or rales were noted. HEART: Regular with no gallops or murmurs. No heaves or thrills were noted. ABDOMEN: Obese, soft, nontender. Bowel sounds were present. No rebound. No guarding. No bruit. LOWER EXTREMITIES: Edema 1+ on the right. Dressing that is clean and dry on the knee with a pigtail drain noted. No edema on the left. NEUROLOGIC: The patient is awake, alert, oriented to 3 spheres. INITIAL LABORATORY: Chest x-ray: No acute infiltrate. EKG: Sinus. Knee shows E coli, gram-positive cocci and gram-negative jeff #2. Creatinine of 1.19, BUN of 18, sodium 134, potassium 4.4, glucose 108. WBC 14.3, hemoglobin 10.7, hematocrit 33.8, platelets 291. INR of 1.38, PT of 17.5. ASSESSMENT: 1. Coagulopathy secondary to warfarin. 2. Type-2 diabetes mellitus and morbidly obese. 3. Infected right knee arthroplasty. 4. Atrial fibrillation. 5. Coronary artery disease. 6. Hyperlipidemia. 7. Obstructive sleep apnea. 8. Hypertension. 9. Congestive heart failure, diastolic dysfunction. 10. Gastroesophageal reflux disease. 11. Hiatal hernia. 12. Post-traumatic stress disorder. RECOMMENDATIONS: We will put the patient on sliding scale insulin and monitor blood sugar before meals and at bedtime. I will increase the patient's warfarin to 12 mg. We will monitor PT/INR. Follow cultures and continue current antibiotics for now. Thank you so much for this consultation. We will follow the patient with you. DICTATING PHYSICIAN: BARTOLO DOS SANTOS M.D. [id number] PHY#: [id number] ID: [id number] JOB#: [id number] ACCT: [id number] cc:BARTOLO DOS SANTOS M.D. > MTDD
[2016-10-31] MEDS: MORPHINE SULFATE 10 MG/ML INJ IV PRN (20:00)
[2016-10-31] MEDS ORDERED: WARFARIN SODIUM 7.5 MG TABLET PO SCH (22:00)
[2016-10-31] MEDS ORDERED: WARFARIN SODIUM 4 MG TABLET PO SCH (22:00)
[2016-10-31] MEDS: ATORVASTATIN CALCIUM 20 MG TABLET PO SCH (22:49)
[2016-11-01] MEDS: VANCOMYCIN HCL 1,500 MG in DEXTROSE 5%-WATER 250 ML IV SCH ×3 (01:08→17:37)
[2016-11-01] MEDS: LANSOPRAZOLE 30 MG TAB.RAP.DR PO SCH (06:43)
[2016-11-01] MEDS: MORPHINE SULFATE 10 MG/ML INJ IV PRN ×2 (06:58→21:01)
[2016-11-01 07:34] LABS: ABSOLUTE BASOPHILS # (AUTO) 0.1 10^3/uL (0.0-0.2); ABSOLUTE EOSINOPHILS # (AUTO) 0.3 10^3/uL (0.0-0.6); ABSOLUTE LYMPHOCYTES (AUTO) 2.3 10^3/uL (0.5-4.7); ABSOLUTE MONOCYTES (AUTO) 1.4 10^3/uL (0.1-1.4); ABSOLUTE NEUT (AUTO) 6.3 10^3/uL (1.7-8.2); BASOPHILS % (AUTO) 1.1 % (0-2); HEMATOCRIT 31.9 % (37.9-51.0); HEMOGLOBIN 10.2 g/dL (13.5-17.0); HGB HCT DIFFERENCE -1.3; LYMPHOCYTES % (AUTO) 22.4 % (13-45); MEAN CORPUSCULAR HEMOGLOBIN 27.6 pg (27.0-33.4); MEAN CORPUSCULAR VOLUME 86 fl (80-97); MONOCYTES % (AUTO) 13.1 % (3-13); RED CELL DISTRIBUTION WIDTH 14.2 % (11.5-14.0); SEGMENTED NEUTROPHILS % (AUTO) 60.4 % (42-78); WHITE BLOOD COUNT 10.4 10^3/uL (4.0-10.5)
[2016-11-01 07:45] LABS: PROTHROMBIN TIME 17.3 SEC (11.4-15.4)
[2016-11-01 07:59] LABS: ANION GAP 10 (5-19); BLOOD UREA NITROGEN 14 mg/dL (7-20); CALCIUM 9.2 mg/dL (8.4-10.2); CARBON DIOXIDE 26 mmol/L (22-30); CHLORIDE 101 mmol/L (98-107); CREATININE RESULT 0.95 mg/dL (0.52-1.25); GLUCOSE 112 mg/dL (75-110); POTASSIUM 4.6 mmol/L (3.6-5.0); SODIUM 137.3 mmol/L (137-145)
[2016-11-01] MEDS ORDERED: BISACODYL 10 MG SUPP.RECT PR PRN (08:18)
--- NOTE | 2016-11-01 08:26 | PDOC PROGRESS REPORT ---
Subjective Progress Note for:: 11/01/16 Subjective:: Complains of constipation. No SOB, N/V, diarrhea, chills nor fever. No CP, abdominal pain. LE pain controlled. Physical Exam Vital Signs: Temp Pulse Resp BP Pulse Ox 100.1 F 78 20 105/58 L 96 10/31/16 23:56 10/31/16 23:56 10/31/16 23:56 10/31/16 23:56 10/31/16 23:56 Pulse Oximeter Continuous Start: 10/28/16 02: 16 Freq: RTQ4 Status: Complete Document 10/28/16 03:35 STI (Rec: 10/28/16 03:36 STI [id number]) Pulse Oximetry Assessment Oxygen Saturation (92-100) 96 Oxygen Flow Rate (L/min) 2.0 Oxygen Delivery Method Nasal Cannula Fraction of Inspired Oxygen (FIO2) 28 Equipment Usage Equipment in Use Continuous SpO2 Machine # N-1 Pulse Oximeter Continuous Start: 10/28/16 03: 52 Freq: RTQ4 Status: Complete Document 10/31/16 08:00 LDA (Rec: 10/31/16 11:03 LDA [id number]) Pulse Oximetry Assessment Equipment Usage Equipment Discontinued Continuous SpO2 Machine # 1 Intake & Output 10/31/16 11/01/16 11/02/16 06:59 06:59 06:59 Intake Total 3316 2170 Output Total 570 3800 Balance 2746 -1630 General appearance: PRESENT: no acute distress, cooperative, obese Head exam: PRESENT: normocephalic Eye exam: PRESENT: EOMI Mouth exam: PRESENT: moist, neck supple Neck exam: ABSENT: JVD Respiratory exam: PRESENT: clear to auscultation dania. ABSENT: rhonchi, wheezes Cardiovascular exam: PRESENT: RRR. ABSENT: gallop GI/Abdominal exam: PRESENT: hypoactive bowel sounds, soft. ABSENT: distended - obese Extremities exam: PRESENT: +1 edema - Right Neurological exam: PRESENT: alert, awake, oriented to situation Skin exam: PRESENT: dry, warm. ABSENT: cyanosis Results Laboratory Results: 11/01/16 06:54 11/01/16 06:54 11/01/16 11/01/16 06:54 06:54 WBC 10.4 RBC 3.70 L Hgb 10.2 L Hct 31.9 L MCV 86 MCH 27.6 MCHC 32.0 RDW 14.2 H Plt Count 233 Seg Neutrophils % 60.4 Lymphocytes % 22.4 Monocytes % 13.1 H Eosinophils % 3.0 Basophils % 1.1 Absolute Neutrophils 6.3 Absolute Lymphocytes 2.3 Absolute Monocytes 1.4 Absolute Eosinophils 0.3 Absolute Basophils 0.1 Sodium 137.3 Potassium 4.6 Chloride 101 Carbon Dioxide 26 Anion Gap 10 BUN 14 Creatinine 0.95 Est GFR ( Amer) > 60 Est GFR (Non-Af Amer) > 60 Glucose 112 H Calcium 9.2 10/27/16 22:11 Knee - Right Gram Stain - Final 10/27/16 22:11 Knee - Right Gram Stain - Final 10/27/16 22:11 Knee - Right Gram Stain - Final 10/27/16 22:11 Knee - Right Wound Culture - Final Morganella Morganii Staphylococcus Capitis Escherichia Coli Staphylococcus [place]ensis No Anaerobic Organisms Impressions: Chest X-Ray 10/27/16 00:00 IMPRESSION: NO ACUTE RADIOGRAPHIC FINDING IN THE CHEST. PICC Line Insertion 10/27/16 00:00 IMPRESSION: SUCCESSFUL PLACEMENT OF A 5 FR DUAL LUMEN 44 CM PICC IN THE left basilic VEIN. Guidance Fluoroscopy 10/29/16 00:00 IMPRESSION: SUCCESSFUL PLACEMENT OF A 5 FR DUAL LUMEN 44 CM PICC IN THE left basilic VEIN. Interventional Vascular Procedure 10/29/16 00:00 IMPRESSION: SUCCESSFUL PLACEMENT OF A 5 FR DUAL LUMEN 44 CM PICC IN THE left basilic VEIN. Assessment & Plan - Diagnosis (1) Infection of total right knee replacement Qualifiers: Encounter type: subsequent encounter Qualified Code(s): T84.53XD - Infection and inflammatory reaction due to internal right knee prosthesis, subsequent encounter; Z96.651 - Presence of right artificial knee joint Is this a current diagnosis for this admission?: Yes (2) Atrial fibrillation Qualifiers: Atrial fibrillation type: chronic Qualified Code(s): I48.2 - Chronic atrial fibrillation Is this a current diagnosis for this admission?: Yes (3) Diabetes mellitus type 2 in obese Is this a current diagnosis for this admission?: Yes (4) CAD (coronary artery disease) Qualifiers: Coronary Disease-Associated Artery/Lesion type: unspecified vessel or lesion type [place] vs. transplanted heart: [place] heart Associated angina: without angina Qualified Code(s): I25.10 - Atherosclerotic heart disease of [place] coronary artery without angina pectoris Is this a current diagnosis for this admission?: Yes (5) GERD (gastroesophageal reflux disease) Qualifiers: Esophagitis presence: without esophagitis Qualified Code(s): K21.9 - Gastro-esophageal reflux disease without esophagitis Is this a current diagnosis for this admission?: Yes (6) Hypercholesteremia Is this a current diagnosis for this admission?: Yes (7) RADHA on CPAP Is this a current diagnosis for this admission?: Yes (8) PTSD (post-traumatic stress disorder) Is this a current diagnosis for this admission?: Yes (9) CHF (congestive heart failure) Qualifiers: Congestive heart failure type: diastolic Congestive heart failure chronicity: chronic Qualified Code(s): I50.32 - Chronic diastolic ( congestive) heart failure Is this a current diagnosis for this admission?: Yes - Time Time Spent with patient: 15-24 minutes - Plan Summary Plan Summary: Increase coumadin to 15mg and recheck INR in am.Dulcolax PRN. Continue current antibiotics. Follow cultures.
[2016-11-01] MEDS: METFORMIN HCL 500 MG TABLET PO SCH (08:53)
[2016-11-01] MEDS: ENOXAPARIN SODIUM INJ 30 MG/0.3 ML DISP.SYRIN SUBCUT SCH (08:53)
[2016-11-01] MEDS ORDERED: WARFARIN SODIUM 4 MG TABLET PO SCH (09:00)
[2016-11-01] MEDS ORDERED: WARFARIN SODIUM 5 MG TABLET PO ONE (10:00)
[2016-11-01] MEDS: AMLODIPINE BESYLATE 5 MG TABLET PO SCH (11:04)
[2016-11-01] MEDS: LISINOPRIL 10 MG TABLET PO SCH (11:05)
[2016-11-01] MEDS: PREGABALIN 75 MG CAPSULE PO SCH ×2 (11:05→17:37)
[2016-11-01] MEDS: NORMAL SALINE 10 ML SDV (SCHEDULED) IV SCH ×2 (11:06→21:02)
[2016-11-01] MEDS: CIPROFLOXACIN 400 MG/D5W RTU 400 MG/200 ML RTUPB IV SCH ×2 (11:11→21:01)
[2016-11-01] MEDS: OXYCODONE HCL IR 5 MG TABLET PO PRN ×2 (12:12→17:43)
--- NOTE | 2016-11-01 16:42 | PDOC PROGRESS REPORT ---
Subjective Subjective:: Patient states he is doing fine. Pain control. Denies chest pain or shortness of breath. Denies fever chills or sweats. Physical Exam Vital Signs: Temp Pulse Resp BP Pulse Ox 99.3 F 97 20 154/64 H 100 11/01/16 15:23 11/01/16 15:23 11/01/16 15:23 11/01/16 15:23 11/01/16 15:23 Pulse Oximeter Continuous Start: 10/28/16 02: 16 Freq: RTQ4 Status: Complete Document 10/28/16 03:35 STI (Rec: 10/28/16 03:36 STI [id number]) Pulse Oximetry Assessment Oxygen Saturation (92-100) 96 Oxygen Flow Rate (L/min) 2.0 Oxygen Delivery Method Nasal Cannula Fraction of Inspired Oxygen (FIO2) 28 Equipment Usage Equipment in Use Continuous SpO2 Machine # N-1 Pulse Oximeter Continuous Start: 10/28/16 03: 52 Freq: RTQ4 Status: Complete Document 10/31/16 08:00 LDA (Rec: 10/31/16 11:03 LDA [id number]) Pulse Oximetry Assessment Equipment Usage Equipment Discontinued Continuous SpO2 Machine # 1 Intake & Output 10/31/16 11/01/16 11/02/16 06:59 06:59 06:59 Intake Total 3316 2170 840 Output Total 570 3800 950 Balance 2746 -5080 -110 Musculoskeletal exam: PRESENT: other - Right lower extremity: Dressing clean/dry /intact. Drain removed today. Minimal drainage from the drainage site. Minimal effusion. No calf tenderness. Intact plantar flexion/dorsiflexion. Results Laboratory Results: 11/01/16 06:54 11/01/16 06:54 11/01/16 11/01/16 06:54 06:54 WBC 10.4 RBC 3.70 L Hgb 10.2 L Hct 31.9 L MCV 86 MCH 27.6 MCHC 32.0 RDW 14.2 H Plt Count 233 Seg Neutrophils % 60.4 Lymphocytes % 22.4 Monocytes % 13.1 H Eosinophils % 3.0 Basophils % 1.1 Absolute Neutrophils 6.3 Absolute Lymphocytes 2.3 Absolute Monocytes 1.4 Absolute Eosinophils 0.3 Absolute Basophils 0.1 Sodium 137.3 Potassium 4.6 Chloride 101 Carbon Dioxide 26 Anion Gap 10 BUN 14 Creatinine 0.95 Est GFR ( Amer) > 60 Est GFR (Non-Af Amer) > 60 Glucose 112 H Calcium 9.2 10/27/16 22:11 Knee - Right Gram Stain - Final 10/27/16 22:11 Knee - Right Gram Stain - Final 10/27/16 22:11 Knee - Right Gram Stain - Final 10/27/16 22:11 Knee - Right Wound Culture - Final Morganella Morganii Staphylococcus Capitis Escherichia Coli Staphylococcus [place]ensis No Anaerobic Organisms 11/01/16 11/01/16 11/01/16 06:53 12:20 12:20 Creatine Kinase 97 96 Troponin I < 0.012 Impressions: Chest X-Ray 10/27/16 00:00 IMPRESSION: NO ACUTE RADIOGRAPHIC FINDING IN THE CHEST. PICC Line Insertion 10/27/16 00:00 IMPRESSION: SUCCESSFUL PLACEMENT OF A 5 FR DUAL LUMEN 44 CM PICC IN THE left basilic VEIN. Guidance Fluoroscopy 10/29/16 00:00 IMPRESSION: SUCCESSFUL PLACEMENT OF A 5 FR DUAL LUMEN 44 CM PICC IN THE left basilic VEIN. Interventional Vascular Procedure 10/29/16 00:00 IMPRESSION: SUCCESSFUL PLACEMENT OF A 5 FR DUAL LUMEN 44 CM PICC IN THE left basilic VEIN. Assessment & Plan - Diagnosis (1) Infection of total right knee replacement Qualifiers: Encounter type: subsequent encounter Qualified Code(s): T84.53XD - Infection and inflammatory reaction due to internal right knee prosthesis, subsequent encounter; Z96.651 - Presence of right artificial knee joint Is this a current diagnosis for this admission?: YesPlan: Status post I&D with polyethylene exchange right TKA 10/27/16 #1. Continue Cipro and vancomycin which cover both gram-negative and gram- positive organisms. Will consider switching Cipro to Levaquin will discuss case with Dr. Wilder to make final decision. #2 we will restart patient's Coumadin and dc Lovenox once patient is therapeutic. #3 continue therapy limiting flexion to 45. #4 discharge planning anticipate discharge in 24 hours.
--- NOTE | 2016-11-01 17:14 | EKG REPORT ---
SEVERITY:- ABNORMAL ECG - SINUS RHYTHM PROBABLE LEFT ATRIAL ABNORMALITY PROBABLE INFERIOR INFARCT, AGE INDETERMINATE : Confirmed by: Yuliet Moya MD 01-Nov-2016 17:13:03
[2016-11-01] MEDS: METOPROLOL TARTRATE 50 MG TABLET PO SCH (17:37)
[2016-11-01] MEDS: WARFARIN SODIUM 5 MG TABLET PO SCH (21:00)
[2016-11-01] MEDS: ATORVASTATIN CALCIUM 20 MG TABLET PO SCH (21:00)
[2016-11-02] MEDS: VANCOMYCIN HCL 1,500 MG in DEXTROSE 5%-WATER 250 ML IV SCH ×3 (02:28→17:50)
[2016-11-02] MEDS: MORPHINE SULFATE 10 MG/ML INJ IV PRN ×4 (02:30→22:47)
[2016-11-02] MEDS: LANSOPRAZOLE 30 MG TAB.RAP.DR PO SCH (05:16)
[2016-11-02] MEDS: OXYCODONE HCL IR 5 MG TABLET PO PRN ×3 (05:17→17:49)
[2016-11-02 06:06] LABS: PROTHROMBIN TIME 19.3 SEC (11.4-15.4)
--- NOTE | 2016-11-02 08:49 | PDOC PROGRESS REPORT ---
Subjective Progress Note for:: 11/02/16 Subjective:: Patient complains of chest pain yesterday cardiac enzymes were negative, EKG shows no acute changes. No SOB, N/V, diarrhea, chills nor fever. No abdominal pain. LE pain controlled. Cultures came back, and once culture is grew enterococcus. Physical Exam Vital Signs: Temp Pulse Resp BP Pulse Ox 99.2 F 88 18 133/70 H 100 11/02/16 07:52 11/02/16 07:52 11/02/16 07:52 11/02/16 07:52 11/02/16 07:52 Pulse Oximeter Continuous Start: 10/28/16 02: 16 Freq: RTQ4 Status: Complete Document 10/28/16 03:35 STI (Rec: 10/28/16 03:36 STI [id number]) Pulse Oximetry Assessment Oxygen Saturation (92-100) 96 Oxygen Flow Rate (L/min) 2.0 Oxygen Delivery Method Nasal Cannula Fraction of Inspired Oxygen (FIO2) 28 Equipment Usage Equipment in Use Continuous SpO2 Machine # N-1 Pulse Oximeter Continuous Start: 10/28/16 03: 52 Freq: RTQ4 Status: Complete Document 10/31/16 08:00 LDA (Rec: 10/31/16 11:03 LDA [id number]) Pulse Oximetry Assessment Equipment Usage Equipment Discontinued Continuous SpO2 Machine # 1 Intake & Output 11/01/16 11/02/16 11/03/16 06:59 06:59 06:59 Intake Total 2170 2518 Output Total 3800 4080 Balance -1630 -1562 General appearance: PRESENT: no acute distress, cooperative, obese Head exam: PRESENT: normocephalic Eye exam: PRESENT: EOMI Mouth exam: PRESENT: moist, neck supple Neck exam: ABSENT: JVD Respiratory exam: PRESENT: clear to auscultation dania Cardiovascular exam: PRESENT: irregular rhythm. ABSENT: gallop GI/Abdominal exam: PRESENT: normal bowel sounds, soft. ABSENT: distended - Obese Extremities exam: PRESENT: +1 edema - Right lower extremity Neurological exam: PRESENT: alert, awake, oriented to person, oriented to place , oriented to time, oriented to situation Skin exam: PRESENT: dry, warm. ABSENT: cyanosis Results Laboratory Results: 11/01/16 06:54 11/01/16 06:54 10/27/16 22:11 Knee - Right Fungal Smear - Final 10/27/16 22:11 Knee - Right Fungal Smear - Final 10/27/16 22:11 Knee - Right Fungal Smear - Final 10/27/16 22:11 Knee - Right AFB Smear Concentration - Final 10/27/16 22:11 Knee - Right Acid Fast Bacilli Smear - Final 10/27/16 22:11 Knee - Right Gram Stain - Final 10/27/16 22:11 Knee - Right Wound Culture - Final Escherichia Coli Morganella Morganii Staphylococcus Epidermidis Enterococcus Faecalis(Group D) Peptostreptococcus Species 10/27/16 22:11 Knee - Right Gram Stain - Final 10/27/16 22:11 Knee - Right Wound Culture - Final Morganella Morganii Escherichia Coli Staphylococcus Capitis No Anaerobic Organisms 11/01/16 11/01/16 11/01/16 06:53 12:20 12:20 Creatine Kinase 97 96 Troponin I < 0.012 11/01/16 11/01/16 11/01/16 16:08 20:44 20:44 Creatine Kinase 85 Troponin I < 0.012 < 0.012 Impressions: Chest X-Ray 10/27/16 00:00 IMPRESSION: NO ACUTE RADIOGRAPHIC FINDING IN THE CHEST. PICC Line Insertion 10/27/16 00:00 IMPRESSION: SUCCESSFUL PLACEMENT OF A 5 FR DUAL LUMEN 44 CM PICC IN THE left basilic VEIN. Guidance Fluoroscopy 10/29/16 00:00 IMPRESSION: SUCCESSFUL PLACEMENT OF A 5 FR DUAL LUMEN 44 CM PICC IN THE left basilic VEIN. Interventional Vascular Procedure 10/29/16 00:00 IMPRESSION: SUCCESSFUL PLACEMENT OF A 5 FR DUAL LUMEN 44 CM PICC IN THE left basilic VEIN. Assessment & Plan - Diagnosis (1) Infection of total right knee replacement Qualifiers: Encounter type: subsequent encounter Qualified Code(s): T84.53XD - Infection and inflammatory reaction due to internal right knee prosthesis, subsequent encounter; Z96.651 - Presence of right artificial knee joint Is this a current diagnosis for this admission?: Yes (2) Atrial fibrillation Qualifiers: Atrial fibrillation type: chronic Qualified Code(s): I48.2 - Chronic atrial fibrillation Is this a current diagnosis for this admission?: Yes (3) Diabetes mellitus type 2 in obese Is this a current diagnosis for this admission?: Yes (4) CAD (coronary artery disease) Qualifiers: Coronary Disease-Associated Artery/Lesion type: unspecified vessel or lesion type [place] vs. transplanted heart: [place] heart Associated angina: without angina Qualified Code(s): I25.10 - Atherosclerotic heart disease of [place] coronary artery without angina pectoris Is this a current diagnosis for this admission?: Yes (5) GERD (gastroesophageal reflux disease) Qualifiers: Esophagitis presence: without esophagitis Qualified Code(s): K21.9 - Gastro-esophageal reflux disease without esophagitis Is this a current diagnosis for this admission?: Yes (6) Hypercholesteremia Is this a current diagnosis for this admission?: Yes (7) RADHA on CPAP Is this a current diagnosis for this admission?: Yes (8) PTSD (post-traumatic stress disorder) Is this a current diagnosis for this admission?: Yes (9) CHF (congestive heart failure) Qualifiers: Congestive heart failure type: diastolic Congestive heart failure chronicity: chronic Qualified Code(s): I50.32 - Chronic diastolic ( congestive) heart failure Is this a current diagnosis for this admission?: Yes - Time Time Spent with patient: 25-34 minutes - Plan Summary Plan Summary: Continue warfarin recheck PT/INR in the morning. Cultures were followed and one sample grew enterococcus. Although most of the organisms were sensitive to Levaquin, quinolones are not the first line for treatment of enterococcus. Would recommend to continue the vancomycin and arrange home IV antibiotic coverage outpatient as planned. Patient has decline to take the newer agents for chronic anticoagulation. Also, patient's PT/INR and warfarin adjustment can be done outpatient with his primary care physician. No need for bridging heparin or Lovenox.
[2016-11-02] MEDS: ENOXAPARIN SODIUM INJ 30 MG/0.3 ML DISP.SYRIN SUBCUT SCH (09:30)
[2016-11-02] MEDS: METFORMIN HCL 500 MG TABLET PO SCH (09:31)
[2016-11-02] MEDS: PREGABALIN 75 MG CAPSULE PO SCH ×2 (09:31→17:49)
[2016-11-02] MEDS: CIPROFLOXACIN 400 MG/D5W RTU 400 MG/200 ML RTUPB IV SCH ×2 (09:31→21:18)
[2016-11-02] MEDS: AMLODIPINE BESYLATE 5 MG TABLET PO SCH (09:31)
[2016-11-02] MEDS: LISINOPRIL 10 MG TABLET PO SCH (09:32)
[2016-11-02] MEDS: NORMAL SALINE 10 ML SDV (SCHEDULED) IV SCH ×2 (09:35→21:18)
[2016-11-02] MEDS: NORMAL SALINE 10 ML SDV (AFTER EACH USE) IV PRN (13:03)
[2016-11-02] MEDS: METOPROLOL TARTRATE 50 MG TABLET PO SCH (17:49)
[2016-11-02] MEDS: ATORVASTATIN CALCIUM 20 MG TABLET PO SCH (21:18)
[2016-11-02] MEDS: WARFARIN SODIUM 5 MG TABLET PO SCH (21:18)
[2016-11-03] MEDS: VANCOMYCIN HCL 1,500 MG in DEXTROSE 5%-WATER 250 ML IV SCH ×3 (02:56→17:14)
[2016-11-03] MEDS: MORPHINE SULFATE 10 MG/ML INJ IV PRN ×4 (04:42→20:19)
[2016-11-03] MEDS: LANSOPRAZOLE 30 MG TAB.RAP.DR PO SCH (05:51)
[2016-11-03 06:40] LABS: PROTHROMBIN TIME 23.8 SEC (11.4-15.4)
--- NOTE | 2016-11-03 07:03 | PDOC PROGRESS REPORT ---
Subjective Progress Note for:: 11/03/16 Subjective:: Patient with significant concerns about a postoperative infection and the implications. He is also complaining of right dorsal ankle pain Physical Exam Vital Signs: Temp Pulse Resp BP Pulse Ox 37.3 C 77 19 102/67 98 11/03/16 00:09 11/03/16 00:09 11/03/16 00:09 11/03/16 00:09 11/03/16 00:09 Pulse Oximeter Continuous Start: 10/28/16 02: 16 Freq: RTQ4 Status: Complete Document 10/28/16 03:35 STI (Rec: 10/28/16 03:36 STI [id number]) Pulse Oximetry Assessment Oxygen Saturation (92-100) 96 Oxygen Flow Rate (L/min) 2.0 Oxygen Delivery Method Nasal Cannula Fraction of Inspired Oxygen (FIO2) 28 Equipment Usage Equipment in Use Continuous SpO2 Machine # N-1 Pulse Oximeter Continuous Start: 10/28/16 03: 52 Freq: RTQ4 Status: Complete Document 10/31/16 08:00 LDA (Rec: 10/31/16 11:03 LDA [id number]) Pulse Oximetry Assessment Equipment Usage Equipment Discontinued Continuous SpO2 Machine # 1 Intake & Output 11/01/16 11/02/16 11/03/16 06:59 06:59 06:59 Intake Total 2170 2518 4391 Output Total 3800 4080 2700 Balance -1630 -1562 1691 General appearance: PRESENT: no acute distress Head exam: PRESENT: normocephalic Respiratory exam: PRESENT: unlabored Pulses: PRESENT: +1 pedal pulses bilateral Vascular exam: PRESENT: normal capillary refill GI/Abdominal exam: PRESENT: soft Rectal exam: PRESENT: deferred Extremities exam: PRESENT: other - Left lower extremity incision is healing uneventfully. There is no drainage from the drain site nor the primary incision Neurological exam: PRESENT: alert, awake, oriented to person, oriented to place , oriented to time, oriented to situation, CN II-XII grossly intact. ABSENT: motor sensory deficit Psychiatric exam: PRESENT: appropriate affect Skin exam: PRESENT: dry, intact, warm. ABSENT: cyanosis, rash Results Laboratory Results: 11/01/16 06:54 11/01/16 06:54 10/27/16 22:11 Knee - Right Fungal Smear - Final 10/27/16 22:11 Knee - Right Fungal Smear - Final 10/27/16 22:11 Knee - Right Fungal Smear - Final 10/27/16 22:11 Knee - Right AFB Smear Concentration - Final 10/27/16 22:11 Knee - Right Acid Fast Bacilli Smear - Final 11/01/16 11/01/16 11/01/16 06:53 12:20 12:20 Creatine Kinase 97 96 Troponin I < 0.012 11/01/16 11/01/16 11/01/16 16:08 20:44 20:44 Creatine Kinase 85 Troponin I < 0.012 < 0.012 Impressions: Chest X-Ray 10/27/16 00:00 IMPRESSION: NO ACUTE RADIOGRAPHIC FINDING IN THE CHEST. PICC Line Insertion 10/27/16 00:00 IMPRESSION: SUCCESSFUL PLACEMENT OF A 5 FR DUAL LUMEN 44 CM PICC IN THE left basilic VEIN. Guidance Fluoroscopy 10/29/16 00:00 IMPRESSION: SUCCESSFUL PLACEMENT OF A 5 FR DUAL LUMEN 44 CM PICC IN THE left basilic VEIN. Interventional Vascular Procedure 10/29/16 00:00 IMPRESSION: SUCCESSFUL PLACEMENT OF A 5 FR DUAL LUMEN 44 CM PICC IN THE left basilic VEIN. Status: Imported from PACS Assessment & Plan - Diagnosis (1) Infection of prosthetic knee joint Is this a current diagnosis for this admission?: YesPlan: Status post benign the now growing E. coli, staph subspecies, and Morganella he is currently being treated with vancomycin per the hospitalist recommendation. - Time Time Spent with patient: 15-24 minutes Anticipated discharge: Home with Homehealth Within: within 24 hours
[2016-11-03] MEDS: ENOXAPARIN SODIUM INJ 30 MG/0.3 ML DISP.SYRIN SUBCUT SCH (09:50)
[2016-11-03] MEDS: LISINOPRIL 10 MG TABLET PO SCH (09:51)
[2016-11-03] MEDS: AMLODIPINE BESYLATE 5 MG TABLET PO SCH (09:51)
[2016-11-03] MEDS: METFORMIN HCL 500 MG TABLET PO SCH (09:51)
[2016-11-03] MEDS: CIPROFLOXACIN 400 MG/D5W RTU 400 MG/200 ML RTUPB IV SCH ×2 (09:51→22:42)
[2016-11-03] MEDS: PREGABALIN 75 MG CAPSULE PO SCH ×2 (09:51→17:13)
[2016-11-03] MEDS: NORMAL SALINE 10 ML SDV (SCHEDULED) IV SCH ×2 (13:40→22:42)
[2016-11-03] MEDS: IBUPROFEN 800 MG in NORMAL SALINE 250 ML IV SCH ×2 (13:43→20:09)
[2016-11-03] MEDS: METOPROLOL TARTRATE 50 MG TABLET PO SCH (17:13)
--- NOTE | 2016-11-03 17:51 | PDOC PROGRESS REPORT ---
Subjective Progress Note for:: 11/03/16 Physical Exam Vital Signs: Temp Pulse Resp BP Pulse Ox 97.5 F 88 17 119/63 100 11/03/16 15:50 11/03/16 15:50 11/03/16 15:50 11/03/16 15:50 11/03/16 15:50 Pulse Oximeter Continuous Start: 10/28/16 02: 16 Freq: RTQ4 Status: Complete Document 10/28/16 03:35 STI (Rec: 10/28/16 03:36 STI [id number]) Pulse Oximetry Assessment Oxygen Saturation (92-100) 96 Oxygen Flow Rate (L/min) 2.0 Oxygen Delivery Method Nasal Cannula Fraction of Inspired Oxygen (FIO2) 28 Equipment Usage Equipment in Use Continuous SpO2 Machine # N-1 Pulse Oximeter Continuous Start: 10/28/16 03: 52 Freq: RTQ4 Status: Complete Document 10/31/16 08:00 LDA (Rec: 10/31/16 11:03 LDA [id number]) Pulse Oximetry Assessment Equipment Usage Equipment Discontinued Continuous SpO2 Machine # 1 Intake & Output 11/02/16 11/03/16 11/04/16 06:59 06:59 06:59 Intake Total 2518 4391 0 Output Total 4080 2700 Balance -1562 1691 0 Results Laboratory Results: 11/01/16 06:54 11/01/16 06:54 10/27/16 22:11 Knee - Right Fungal Smear - Final 10/27/16 22:11 Knee - Right Fungal Smear - Final 10/27/16 22:11 Knee - Right Fungal Smear - Final 10/27/16 22:11 Knee - Right Fungal Smear - Final 10/27/16 22:11 Knee - Right Fungal Smear - Final 10/27/16 22:11 Knee - Right Fungal Smear - Final 11/01/16 11/01/16 11/01/16 06:53 12:20 12:20 Creatine Kinase 97 96 Troponin I < 0.012 11/01/16 11/01/16 11/01/16 16:08 20:44 20:44 Creatine Kinase 85 Troponin I < 0.012 < 0.012 Impressions: Chest X-Ray 10/27/16 00:00 IMPRESSION: NO ACUTE RADIOGRAPHIC FINDING IN THE CHEST. PICC Line Insertion 10/27/16 00:00 IMPRESSION: SUCCESSFUL PLACEMENT OF A 5 FR DUAL LUMEN 44 CM PICC IN THE left basilic VEIN. Guidance Fluoroscopy 10/29/16 00:00 IMPRESSION: SUCCESSFUL PLACEMENT OF A 5 FR DUAL LUMEN 44 CM PICC IN THE left basilic VEIN. Interventional Vascular Procedure 10/29/16 00:00 IMPRESSION: SUCCESSFUL PLACEMENT OF A 5 FR DUAL LUMEN 44 CM PICC IN THE left basilic VEIN. Assessment & Plan - Diagnosis (1) Infection of prosthetic knee joint Is this a current diagnosis for this admission?: YesPlan: Has an infection with enterococcus, E. coli, Morganella. Recommend IV vancomycin and Levaquin for a total of 6 weeks (2) Atrial fibrillation Qualifiers: Atrial fibrillation type: chronic Qualified Code(s): I48.2 - Chronic atrial fibrillation Is this a current diagnosis for this admission?: YesPlan: Therapeutic on the Coumadin. (3) Diabetes mellitus type 2 in obese Is this a current diagnosis for this admission?: Yes (4) CAD (coronary artery disease) Qualifiers: Coronary Disease-Associated Artery/Lesion type: unspecified vessel or lesion type [place] vs. transplanted heart: habematolel heart Associated angina: without angina Qualified Code(s): I25.10 - Atherosclerotic heart disease of habematolel coronary artery without angina pectoris Is this a current diagnosis for this admission?: Yes (5) GERD (gastroesophageal reflux disease) Qualifiers: Esophagitis presence: without esophagitis Qualified Code(s): K21.9 - Gastro-esophageal reflux disease without esophagitis Is this a current diagnosis for this admission?: Yes (6) RADHA on CPAP Is this a current diagnosis for this admission?: Yes - Plan Summary Plan Summary: Patient is therapeutic on Coumadin. Recommend IV antibiotics for a total of 6 weeks Levaquin and vancomycin. Service will sign off for now. Please call with any further questions.
[2016-11-03] MEDS: OXYCODONE HCL IR 5 MG TABLET PO PRN (18:07)
[2016-11-03] MEDS: ATORVASTATIN CALCIUM 20 MG TABLET PO SCH (22:41)
[2016-11-03] MEDS: WARFARIN SODIUM 5 MG TABLET PO SCH (22:42)
[2016-11-04] MEDS ORDERED: MORPHINE SULFATE 10 MG/ML INJ IM PRN (00:16)
[2016-11-04] MEDS: OXYCODONE HCL IR 5 MG TABLET PO PRN ×4 (00:41→22:52)
[2016-11-04] MEDS: VANCOMYCIN HCL 1,500 MG in DEXTROSE 5%-WATER 250 ML IV SCH ×3 (02:24→18:01)
[2016-11-04] MEDS: IBUPROFEN 800 MG in NORMAL SALINE 250 ML IV SCH ×3 (02:25→20:01)
[2016-11-04 05:49] LABS: PROTHROMBIN TIME 26.9 SEC (11.4-15.4)
[2016-11-04] MEDS: LANSOPRAZOLE 30 MG TAB.RAP.DR PO SCH (06:19)
[2016-11-04] MEDS: ENOXAPARIN SODIUM INJ 30 MG/0.3 ML DISP.SYRIN SUBCUT SCH (10:27)
[2016-11-04] MEDS: PREGABALIN 75 MG CAPSULE PO SCH ×2 (10:28→17:18)
[2016-11-04] MEDS: AMLODIPINE BESYLATE 5 MG TABLET PO SCH (10:28)
[2016-11-04] MEDS: METFORMIN HCL 500 MG TABLET PO SCH (10:29)
[2016-11-04] MEDS: LISINOPRIL 10 MG TABLET PO SCH (10:29)
[2016-11-04] MEDS: NORMAL SALINE 10 ML SDV (SCHEDULED) IV SCH ×2 (13:27→22:46)
[2016-11-04] MEDS: METOPROLOL TARTRATE 50 MG TABLET PO SCH (17:18)
[2016-11-04] MEDS: MORPHINE SULFATE 10 MG/ML INJ IV PRN (20:06)
[2016-11-04] MEDS ORDERED: NA PHOS,M-B/NA PHOS,DI-BA (ADULT) 133 ML ENEMA PR PRN (20:50)
[2016-11-04] MEDS ORDERED: LACTULOSE SYRUP 20 GM/30 ML UDCUP PO ONE (21:15)
[2016-11-04] MEDS: WARFARIN SODIUM 5 MG TABLET PO SCH (22:45)
[2016-11-04] MEDS: ATORVASTATIN CALCIUM 20 MG TABLET PO SCH (22:46)
[2016-11-05] MEDS ORDERED: LACTULOSE SYRUP 20 GM/30 ML UDCUP PO ONE (00:45)
[2016-11-05] MEDS: IBUPROFEN 800 MG in NORMAL SALINE 250 ML IV SCH (02:09)
[2016-11-05] MEDS: VANCOMYCIN HCL 1,500 MG in DEXTROSE 5%-WATER 250 ML IV SCH ×2 (02:22→12:15)
[2016-11-05] MEDS: LANSOPRAZOLE 30 MG TAB.RAP.DR PO SCH (05:11)
[2016-11-05] MEDS: ENOXAPARIN SODIUM INJ 30 MG/0.3 ML DISP.SYRIN SUBCUT SCH (09:32)
[2016-11-05] MEDS: METFORMIN HCL 500 MG TABLET PO SCH (09:35)
[2016-11-05] MEDS: AMLODIPINE BESYLATE 5 MG TABLET PO SCH (09:36)
[2016-11-05] MEDS: NORMAL SALINE 10 ML SDV (SCHEDULED) IV SCH ×2 (09:36→21:08)
[2016-11-05] MEDS: LISINOPRIL 10 MG TABLET PO SCH (09:36)
[2016-11-05] MEDS: PREGABALIN 75 MG CAPSULE PO SCH ×2 (09:37→18:30)
[2016-11-05 10:33] LABS: CREATININE RESULT 0.98 mg/dL (0.52-1.25)
[2016-11-05] MEDS ORDERED: LEVOFLOXACIN 750 MG/D5W RTU 750 MG/150 ML RTUPB IV SCH (15:00)
[2016-11-05] MEDS: METOPROLOL TARTRATE 50 MG TABLET PO SCH (18:30)
[2016-11-05] MEDS: OXYCODONE HCL IR 5 MG TABLET PO PRN (19:04)
[2016-11-05] MEDS: WARFARIN SODIUM 5 MG TABLET PO SCH (21:08)
[2016-11-05] MEDS: MORPHINE SULFATE 10 MG/ML INJ IV PRN (21:08)
[2016-11-05] MEDS: ATORVASTATIN CALCIUM 20 MG TABLET PO SCH (21:08)
[2016-11-06] MEDS: MORPHINE SULFATE 10 MG/ML INJ IV PRN ×2 (03:32→09:17)
[2016-11-06] MEDS: LANSOPRAZOLE 30 MG TAB.RAP.DR PO SCH (06:02)
--- NOTE | 2016-11-06 06:46 | PDOC DISCHARGE SUMMARY ---
General - Admit/Disc Date/PCP Admission Date/Primary Care Provider: 10/27/16 16:39 Discharge Date: 11/06/16 - Discharge Diagnosis (1) Infection of prosthetic knee joint Is this a current diagnosis for this admission?: Yes - Additional Information Resuscitation Status: Full Code Discharge Diet: As Tolerated, Regular Discharge Activity: Activity As Tolerated, Balance Activity w/Rest Home Medications: Amlodipine Besylate [Norvasc 5 mg Tablet] 5 mg PO DAILY 10/27/16 Atorvastatin Calcium [Lipitor 20 mg Tablet] 20 mg PO QHS 10/27/16 Lisinopril [Zestril] 40 mg PO DAILY 10/27/16 Meloxicam [Mobic 15 mg Tablet] 15 mg PO QPM 10/27/16 Metformin HCl [Glucophage] 500 mg PO DAILY 10/27/16 Metoprolol Tartrate [Lopressor 50 mg Tablet] 50 mg PO QPM 10/27/16 Omeprazole 20 mg PO QPM 10/27/16 Oxycodone HCl [Oxycodone HCl 10 MG Tablet] 10 mg PO Q6HP PRN 10/27/16 Warfarin Sodium [Coumadin 7.5 mg Tablet] 7.5 mg PO MOTUWETHSA 10/27/16 Warfarin Sodium [Coumadin 7.5 mg Tablet] 11.25 mg PO SUFR 10/27/16 Oxycodone HCl [Oxy-Ir 5 mg Tablet] 5 mg PO Q6HP PRN #0 tablet 11/06/16 Warfarin Sodium [Coumadin 5 mg Tablet] 15 mg PO QHS #0 tablet 11/06/16 History of Present Illness History of Present Illness: DONALD ELDER is a 61 year old male's right knee arthroplasty who presented with foul-smelling drainage. He was taken to the operating room back to Dr. lima and underwent irrigation debridement which he tolerated without complication. Operative cultures have grown staph, Morganella, and E. coli. Hospital Course Hospital Course: Taken to the operating room and undergoes an I&D of the right knee. Intraoperative cultures grow staph, Morganella, and E. coli. Patient was managed postoperatively on Levaquin. Progress with physical therapy. Wound remains clean dry and intact. Physical Exam Vital Signs: Temp Pulse Resp BP Pulse Ox 37.7 C 75 17 108/63 98 11/05/16 23:35 11/05/16 23:35 11/05/16 23:35 11/05/16 23:35 11/05/16 23:35 Pulse Oximeter Continuous Start: 10/28/16 02: 16 Freq: RTQ4 Status: Complete Document 10/28/16 03:35 STI (Rec: 10/28/16 03:36 STI [id number]) Pulse Oximetry Assessment Oxygen Saturation (92-100) 96 Oxygen Flow Rate (L/min) 2.0 Oxygen Delivery Method Nasal Cannula Fraction of Inspired Oxygen (FIO2) 28 Equipment Usage Equipment in Use Continuous SpO2 Machine # N-1 Pulse Oximeter Continuous Start: 10/28/16 03: 52 Freq: RTQ4 Status: Complete Document 10/31/16 08:00 LDA (Rec: 10/31/16 11:03 LDA [id number]) Pulse Oximetry Assessment Equipment Usage Equipment Discontinued Continuous SpO2 Machine # 1 Intake & Output 11/04/16 11/05/16 11/06/16 06:59 06:59 06:59 Intake Total 3411 980 1412 Output Total 600 900 750 Balance 2811 80 662 Weight 124.3 kg General appearance: PRESENT: mild distress Head exam: PRESENT: normocephalic Eye exam: PRESENT: EOMI Respiratory exam: PRESENT: unlabored Cardiovascular exam: PRESENT: RRR Vascular exam: PRESENT: normal capillary refill GI/Abdominal exam: PRESENT: soft Rectal exam: PRESENT: deferred Musculoskeletal exam: PRESENT: other - Lower extremity incision is well approximated without drainage. Pedal edema. Distal neurovascular examination is intact. Results Laboratory Results: 11/01/16 06:54 11/05/16 09:55 11/05/16 09:55 Creatinine 0.98 Est GFR ( Amer) > 60 Est GFR (Non-Af Amer) > 60 11/01/16 11/01/16 11/01/16 06:53 12:20 12:20 Creatine Kinase 97 96 Troponin I < 0.012 11/01/16 11/01/16 11/01/16 16:08 20:44 20:44 Creatine Kinase 85 Troponin I < 0.012 < 0.012 Impressions: Chest X-Ray 10/27/16 00:00 IMPRESSION: NO ACUTE RADIOGRAPHIC FINDING IN THE CHEST. PICC Line Insertion 10/27/16 00:00 IMPRESSION: SUCCESSFUL PLACEMENT OF A 5 FR DUAL LUMEN 44 CM PICC IN THE left basilic VEIN. Guidance Fluoroscopy 10/29/16 00:00 IMPRESSION: SUCCESSFUL PLACEMENT OF A 5 FR DUAL LUMEN 44 CM PICC IN THE left basilic VEIN. Interventional Vascular Procedure 10/29/16 00:00 IMPRESSION: SUCCESSFUL PLACEMENT OF A 5 FR DUAL LUMEN 44 CM PICC IN THE left basilic VEIN. Status: Imported from PACS Qualifiers PATEINT BEING DISCHARGED WITH ANY OF THE FOLLOWING DIAGNOSIS?: No VTE patient discharged on overlapping Therapy?: Yes Plan Discharge Plan: Discharge on preoperative meds as well as Levaquin and vancomycin. He with Dr. Wilder and [facility] for surgery in 2 weeks for staple removal.
[2016-11-06 08:04] LABS: ABSOLUTE EOSINOPHILS # (AUTO) 0.2 10^3/uL (0.0-0.6); ABSOLUTE MONOCYTES (AUTO) 1.7 10^3/uL (0.1-1.4); ABSOLUTE NEUT (AUTO) 6.5 10^3/uL (1.7-8.2); BASOPHILS % (AUTO) 0.2 % (0-2); EOSINOPHILS % (AUTO) 2.1 % (0-6); HEMATOCRIT 33.1 % (37.9-51.0); HEMOGLOBIN 10.5 g/dL (13.5-17.0); HGB HCT DIFFERENCE -1.6; LYMPHOCYTES % (AUTO) 26.2 % (13-45); MEAN CORPUSCULAR HEMOGLOBIN 26.8 pg (27.0-33.4); MEAN CORPUSCULAR HGB CONC 31.8 g/dL (32.0-36.0); MEAN CORPUSCULAR VOLUME 85 fl (80-97); MONOCYTES % (AUTO) 14.6 % (3-13); RED BLOOD COUNT 3.92 10^6/uL (4.35-5.55); RED CELL DISTRIBUTION WIDTH 14.6 % (11.5-14.0); SEGMENTED NEUTROPHILS % (AUTO) 56.9 % (42-78); WHITE BLOOD COUNT 11.4 10^3/uL (4.0-10.5)
[2016-11-06 08:21] LABS: ALANINE AMINOTRANSFERASE 40 U/L (21-72); ALBUMIN 3.3 g/dL (3.5-5.0); ALKALINE PHOSPHATASE 80 U/L (38-126); ANION GAP 10 (5-19); ASPARTATE AMINO TRANSFERASE 24 U/L (17-59); BILIRUBIN,DIRECT 0.4 mg/dL (0.0-0.4); BILIRUBIN,TOTAL 0.6 mg/dL (0.2-1.3); BLOOD UREA NITROGEN 14 mg/dL (7-20); CALCIUM 9.4 mg/dL (8.4-10.2); CARBON DIOXIDE 27 mmol/L (22-30); CHLORIDE 102 mmol/L (98-107); CREATININE RESULT 1.07 mg/dL (0.52-1.25); GLUCOSE 104 mg/dL (75-110); POTASSIUM 4.5 mmol/L (3.6-5.0); SODIUM 139.3 mmol/L (137-145); TOTAL PROTEIN 7.4 g/dL (6.3-8.2)
[2016-11-06] MEDS: ENOXAPARIN SODIUM INJ 30 MG/0.3 ML DISP.SYRIN SUBCUT SCH (09:05)
[2016-11-06] MEDS: PREGABALIN 75 MG CAPSULE PO SCH ×2 (09:06→17:13)
[2016-11-06] MEDS: AMLODIPINE BESYLATE 5 MG TABLET PO SCH (09:06)
[2016-11-06] MEDS: METFORMIN HCL 500 MG TABLET PO SCH (09:06)
[2016-11-06] MEDS: LISINOPRIL 10 MG TABLET PO SCH (09:07)
[2016-11-06] MEDS ORDERED: VANCOMYCIN HCL 1,500 MG in DEXTROSE 5%-WATER 250 ML IV SCH (10:00)
[2016-11-06] MEDS: NORMAL SALINE 10 ML SDV (SCHEDULED) IV SCH (12:11)
[2016-11-06] MEDS ORDERED: CIPROFLOXACIN 400 MG/D5W RTU 400 MG/200 ML RTUPB IV ONE (17:00)
[2016-11-06 17:08] VITALS: BP 105/62
[2016-11-06] MEDS: METOPROLOL TARTRATE 50 MG TABLET PO SCH (17:14)
[2016-11-06] MEDS ORDERED: CIPROFLOXACIN 400 MG/D5W RTU 400 MG/200 ML RTUPB IV SCH (22:00)
== END 2016-11-06 18:15 | disposition home health service (06) | DRG 464 ==
LOC: OROUT 14:44 → EH 16:39 → 5 10-28 01:45
PROVIDERS: ADMIT Orthopaedic Surgery; ATTEND Orthopaedic Surgery
PROC: 0SUC09C Supplement Right Knee Joint with Liner, Patellar Surface, Open Approach (ICD-10-PCS; 2016-10-27)
PROC: 0JBN0ZZ Excision of Right Lower Leg Subcutaneous Tissue and Fascia, Open Approach (ICD-10-PCS; 2016-10-27)
PROC: 0S9C00Z Drainage of Right Knee Joint with Drainage Device, Open Approach (ICD-10-PCS; 2016-10-27)
PROC: 0SPC09Z Removal of Liner from Right Knee Joint, Open Approach (ICD-10-PCS; principal; 2016-10-27 18:30)
PROC: B51N1ZA Fluoroscopy of Left Upper Extremity Veins using Low Osmolar Contrast, Guidance (ICD-10-PCS; 2016-10-28)
PROC: 30233K1 Transfusion of Nonautologous Frozen Plasma into Peripheral Vein, Percutaneous Approach (ICD-10-PCS; 2016-10-28)
PROC: 05HC33Z Insertion of Infusion Device into Left Basilic Vein, Percutaneous Approach (ICD-10-PCS; 2016-10-29)
PROC: B54NZZA Ultrasonography of Left Upper Extremity Veins, Guidance (ICD-10-PCS; 2016-10-29)
DX: T84.53XA Infection and inflammatory reaction due to internal right knee prosthesis, initial encounter (principal); I50.32 Chronic diastolic (congestive) heart failure; I48.91 Unspecified atrial fibrillation; I25.10 Atherosclerotic heart disease of native coronary artery without angina pectoris; E11.9 Type 2 diabetes mellitus without complications; I11.0 Hypertensive heart disease with heart failure; B95.7 Other staphylococcus as the cause of diseases classified elsewhere; B96.20 Unspecified Escherichia coli [E. coli] as the cause of diseases classified elsewhere; B96.89 Other specified bacterial agents as the cause of diseases classified elsewhere; Y83.8 Other surgical procedures as the cause of abnormal reaction of the patient, or of later complication, without mention of misadventure at the time of the procedure; K21.9 Gastro-esophageal reflux disease without esophagitis; F32.9 Major depressive disorder, single episode, unspecified; F43.10 Post-traumatic stress disorder, unspecified; I25.2 Old myocardial infarction; E66.01 Morbid (severe) obesity due to excess calories; E78.5 Hyperlipidemia, unspecified; G47.33 Obstructive sleep apnea (adult) (pediatric); M19.90 Unspecified osteoarthritis, unspecified site; K44.9 Diaphragmatic hernia without obstruction or gangrene; Z87.891 Personal history of nicotine dependence; Z79.899 Other long term (current) drug therapy; Z68.38 Body mass index [BMI] 38.0-38.9, adult; Z79.84 Long term (current) use of oral hypoglycemic drugs; Z95.5 Presence of coronary angioplasty implant and graft; Z82.49 Family history of ischemic heart disease and other diseases of the circulatory system; Z79.02 Long term (current) use of antithrombotics/antiplatelets; Z88.7 Allergy status to serum and vaccine
CPT/HCPCS: 00400; 36415; 36430; 36569; 71010; 76937; 77001; 80048; 80053; 80202; 82550; 82565; 82962; 84484; 84520; 85025; 85027; 85610; 85652; 85730; 86140; 86850; 86900; 86901; 87015; 87070; 87075; 87077; 87101; 87116; 87186; 87205; 87206; 93005; 93010; 94762; 99285; C2625; J0131; J0330; J0744; J1100; J1170; J1642; J1650; J1815; J1956; J2250; J2270; J2405; J2704; J3010; J3370; J3490; J7060; P9017

== ENCOUNTER 2016-11-23 13:31 | Emergency (ER) | payer OTHER ==
[2016-11-23 14:05] VITALS: BP 118/72
[2016-11-23] MEDS ORDERED: ALTEPLASE INJ 2 MG VIAL (CATH CLEARANCE) IV ONE (14:31)
--- NOTE | 2016-11-23 14:31 | ER Document Report ---
ED General - General Chief Complaint: Other Stated Complaint: PIC LINE ISSUES Time Seen by Provider: 11/23/16 14:17 Mode of Arrival: Ambulatory Information source: Patient TRAVEL OUTSIDE OF THE [place] IN LAST 30 DAYS: No - HPI Patient complains to provider of: PICC line malfunction Onset: This morning Onset/Duration: Sudden Quality of pain: No pain Associated symptoms: None Exacerbated by: Denies Relieved by: Denies Similar symptoms previously: No Recently seen / treated by doctor: Yes Notes: Patient is a 61-year-old male who presents to the emergency room complaining of possible PICC line occlusion, he has a history of a total knee replacement in September of this year, developed a postop infection, has a PICC line placed for administration of vancomycin on a daily basis, home health nurse came out to the house this morning to draw blood work and was unable to, however she was able to administer medications to the PICC line without difficulty, patient denies any swelling or pain upon administration of medications or with saline flushes - Related Data Allergies/Adverse Reactions: typhoid vaccine [Typhoid Vaccine] Allergy (Severe, Verified 11/23/16 13:58) Seizures Past Medical History - General Information source: Patient - Social History Smoking Status: Never Smoker Chew tobacco use (# tins/day): No Frequency of alcohol use: None Family History: Reviewed & Not Pertinent, CAD, Other - Mother lived to be 94. Father 68 Patient has suicidal ideation: No Patient has homicidal ideation: No - Past Medical History Cardiac Medical History: Reports: Hx Atrial Fibrillation, Hx Congestive Heart Failure - Diastolic dysfunction, Hx Coronary Artery Disease, Hx Heart Attack - [place] 08/2011, Hx Hypercholesterolemia, Hx Hypertension Denies: Hx Peripheral Vascular Disease, Hx Pulmonary Embolism, Hx Heart Murmur Pulmonary Medical History: Reports: Hx Bronchitis, Hx Pneumonia, Hx Sleep Apnea - uses CPAP, had throat/chin surgery d/t Sleep Apnea Denies: Hx Asthma, Hx COPD, Hx Respiratory Failure, Hx Tuberculosis Neurological Medical History: Denies: Hx Cerebrovascular Accident, Hx Seizures Endocrine Medical History: Reports: Hx Diabetes Mellitus Type 2. Denies: Hx Graves' Disease, Hx Hyperthyroidism, Hx Hypothyroidism Renal/ Medical History: Denies: Hx Peritoneal Dialysis Malignancy Medical History: Denies Hx Leukemia, Denies Hx Lung Cancer GI Medical History: Reports: Hx Gastroesophageal Reflux Disease, Hx Hiatal Hernia, Hx Ulcer. Denies: Hx Crohn's Disease, Hx Irritable Bowel, Hx Liver Failure Musculoskeltal Medical History: Reports Hx Arthritis, Denies Hx Fibromyalgia, Denies Hx Multiple Sclerosis, Denies Hx Muscular Dystrophy Psychiatric Medical History: Reports: Hx Depression, Hx Post Traumatic Stress Disorder Denies: Hx Bipolar Disorder, Hx Dementia, Hx Schizophrenia Traumatic Medical History: Denies: Hx Fractures Infectious Medical History: Denies: Hx HIV Past Surgical History: Reports: Hx Cardiac Catheterization, Hx Coronary Stent - x2 2011, Hx Orthopedic Surgery, Hx Tonsillectomy - and adenoids. Denies: Hx Appendectomy, Hx Bowel Surgery, Hx Cholecystectomy, Hx Colostomy, Hx Coronary Artery Bypass Graft, Hx Gastric Bypass Surgery, Hx Herniorrhaphy, Hx Pacemaker - Immunizations Hx Diphtheria, Pertussis, Tetanus Vaccination: No Hx Pneumococcal Vaccination: 04/14/16 Review of Systems - Review of Systems Constitutional: No symptoms reported EENT: No symptoms reported Cardiovascular: No symptoms reported Respiratory: No symptoms reported Gastrointestinal: No symptoms reported Genitourinary: No symptoms reported Male Genitourinary: No symptoms reported Musculoskeletal: No symptoms reported Skin: No symptoms reported Hematologic/Lymphatic: No symptoms reported Neurological/Psychological: No symptoms reported -: Yes All other systems reviewed and negative Physical Exam - Vital signs Vitals: Temp Pulse Resp BP Pulse Ox 98.3 F 70 20 118/72 99 11/23/16 14:02 11/23/16 14:02 11/23/16 14:02 11/23/16 14:02 11/23/16 14:02 - Notes Notes: - General General appearance: Appears well, Alert In distress: None - HEENT Head: Normocephalic, Atraumatic Eyes: Normal Conjunctiva: Normal Extraocular movements intact: Yes Eyelashes: Normal Pupils: PERRL - Respiratory Respiratory status: No respiratory distress - Cardiovascular Rhythm: Regular - Abdominal Inspection: Normal - Back Back: Normal - Extremities General upper extremity: PICC line in place in left upper extremity, no swelling , no drainage, no bleeding, no tenderness, distal sensation and motor intact General lower extremity: Healed surgical incisions to right anterior knee from previous knee replacement surgery, mild swelling, mild tenderness to palpate the area - Neurological Neuro grossly intact: Yes Orientation: AAOx4 Ramez Coma Scale Eye Opening: Spontaneous Ramez Coma Scale Verbal: Oriented [place] Coma Scale Motor: Obeys Commands Ramez Coma Scale Total: 15 - Psychological Associated symptoms: Normal affect, Normal mood - Skin Skin Temperature: Warm Skin Moisture: Dry Skin Color: Normal Course - Re-evaluation Re-evalutation: 11/23/16 14:39 A call was placed on-call orthopedist, Dr. Enoc stephen man, patient was discussed with him, he recommended calling Dr. Wilder directly for further recommendations regarding patient's PICC liner worker attempted to call Dr Wilder, VM was left 11/23/16 14:52 Risks and benefits of CathFlo were discussed with patient, patient agreed to proceed with administration of this medication for possible PICC line occlusion , he was advised to f/up with his PCP and orthopedic surgeon in 1-2 days, or return if symptoms worsen, patient acknowledges understanding and agreement with this plan - Vital Signs Vital signs: Temp Pulse Resp BP Pulse Ox 98.3 F 70 20 118/72 99 11/23/16 14:02 11/23/16 14:02 11/23/16 14:02 11/23/16 14:02 11/23/16 14:02 Discharge - Discharge Clinical Impression: Occluded PICC line Qualifiers: Encounter type: initial encounter Qualified Code(s): T82.898A - Other specified complication of vascular prosthetic devices, implants and grafts, initial encounter Condition: Stable Disposition: HOME, SELF-CARE Additional Instructions: Follow up with your primary care provider and orthopedic surgeon in one to 2 days. Return to the emergency room immediately if symptoms worsen or any additional concerns.
== END 2016-11-23 14:58 | disposition home or self-care (01) ==
LOC: ER 13:31
DX: T82.898A Other specified complication of vascular prosthetic devices, implants and grafts, initial encounter (principal); Y71.8 Miscellaneous cardiovascular devices associated with adverse incidents, not elsewhere classified; Y83.8 Other surgical procedures as the cause of abnormal reaction of the patient, or of later complication, without mention of misadventure at the time of the procedure; T81.4XXA Infection following a procedure, initial encounter; Z96.659 Presence of unspecified artificial knee joint; Z79.2 Long term (current) use of antibiotics; I25.10 Atherosclerotic heart disease of native coronary artery without angina pectoris; I25.2 Old myocardial infarction; I10 Essential (primary) hypertension; E11.9 Type 2 diabetes mellitus without complications; Z98.61 Coronary angioplasty status; Z88.7 Allergy status to serum and vaccine
CPT/HCPCS: 99283; J2997

== ENCOUNTER 2016-11-30 12:01 | Emergency (ER) | payer OTHER ==
--- NOTE | 2016-11-30 14:28 | ER Document Report ---
HPI - HPI Patient complains to provider of: needs picc line flushed and vancomycin trough level drawn Onset: This morning Pain Level: 3 Context: 61-year-old male was sent by Dr. Luciano's office because the home health nurse was unable to withdraw blood to get a vancomycin trough level morning. His last dose of vancomycin was 2130 last night. He takes every 12 hour dosing. He is able to infuse his Cipro IV this morning. No fever, chest pain, or shortness of breath Associated Symptoms: None Exacerbated by: Denies Relieved by: Denies Similar symptoms previously: No Recently seen / treated by doctor: No Notes: Markus and radiology placed a PICC line on October 28 - REPRODUCTIVE Reproductive: DENIES: : - DERM Skin Color: Normal Past Medical History - General Information source: Patient - Social History Smoking Status: Never Smoker Frequency of alcohol use: None Drug Abuse: None Family History: Reviewed & Not Pertinent, CAD, Other - Mother lived to be 94. Father 68 Patient has suicidal ideation: No Patient has homicidal ideation: No - Past Medical History Cardiac Medical History: Reports: Hx Atrial Fibrillation, Hx Congestive Heart Failure - Diastolic dysfunction, Hx Coronary Artery Disease, Hx Heart Attack - [place] 08/2011, Hx Hypercholesterolemia, Hx Hypertension Pulmonary Medical History: Reports: Hx Bronchitis, Hx Pneumonia, Hx Sleep Apnea - uses CPAP, had throat/chin surgery d/t Sleep Apnea Endocrine Medical History: Reports: Hx Diabetes Mellitus Type 2 Renal/ Medical History: Denies: Hx Peritoneal Dialysis GI Medical History: Reports: Hx Gastroesophageal Reflux Disease, Hx Hiatal Hernia, Hx Ulcer Musculoskeltal Medical History: Reports Hx Arthritis Psychiatric Medical History: Reports: Hx Depression, Hx Post Traumatic Stress Disorder Past Surgical History: Reports: Hx Cardiac Catheterization, Hx Coronary Stent - x2 2011, Hx Orthopedic Surgery, Hx Tonsillectomy - and adenoids - Immunizations Hx Diphtheria, Pertussis, Tetanus Vaccination: No Hx Pneumococcal Vaccination: 04/14/16 Vertical Provider Document - CONSTITUTIONAL Agree With Documented VS: Yes Exam Limitations: No Limitations General Appearance: No Apparent Distress - INFECTION CONTROL TRAVEL OUTSIDE OF THE [place] IN LAST 30 DAYS: No - HEENT HEENT: Normal ENT Exam - NECK Neck: Supple - RESPIRATORY Respiratory: Breath Sounds Normal, No Respiratory Distress O2 Sat by Pulse Oximetry: 98 - CARDIOVASCULAR Cardiovascular: Regular Rate, Regular Rhythm - MUSCULOSKELETAL/EXTREMETIES Musculoskeletal/Extremeties: ELANA FROM - picc line left upper arm - NEURO Level of Consciousness: Awake, Alert - DERM Integumentary: Warm, Dry Course - Re-evaluation Re-evalutation: 11/30/16 14:33 Spoke with the Corazon in radiology who states he is able to irrigate the PICC line with 3 mL syringe but to get a chest x-ray to see placement. The patient is agreeable to vancomycin trough to be drawn in a peripheral vein. 11/30/16 14:56 Markus call me back after reviewing the xray today and said that the PICC line is short and since one side is nonfunctioning he is willing to put in the replacement PICC line. Markus is familiar with this patient he put the PICC line in last month. The patient is agreeable to have this done and Markus agrees to do the consent down in the radiology department. We have transported him via wheelchair. We will have them draw the vancomycin trough level when the new PICC line is inserted. 11/30/16 16:[address] luciano, the vancomycin trough will be delayed since he missed a dose today and will need a few days so it is a good info draw. A trough also needs to be drawn 15 minutes before a dose. I explained this to the patient agrees with the plan. 11/30/16 16:14 PICC line placement was confirmed by another x-ray and I spoke with the radiologis since Markus did not call me about this. - Vital Signs Vital signs: Temp Pulse Resp BP Pulse Ox 98.1 F 80 16 174/82 H 98 11/30/16 12:03 11/30/16 12:03 11/30/16 12:03 11/30/16 12:03 11/30/16 12:03 Discharge - Discharge Clinical Impression: S/P PICC central line placement Condition: Good Disposition: HOME, SELF-CARE Additional Instructions: see dr. luciano as planned tomorrow Give your vancomycin as planned tonight Return to the emergency room any concerns Please complete the patient satisfaction survey if you get one, and return it.. If you do not receive a survey, then you can go to the [facility] website, [email or web address] and place your comments about your very good care. Thank you very much. It was a pleasure being your medical provider today.
--- NOTE | 2016-11-30 14:55 | RADIOLOGY REPORT (SQ) ---
EXAM DESCRIPTION: CHEST SINGLE VIEW COMPLETED DATE/TIME: 11/30/2016 2:45 pm REASON FOR STUDY: picc line placement COMPARISON: None. EXAM PARAMETERS: NUMBER OF VIEWS: One view. TECHNIQUE: Single frontal radiographic view of the chest acquired. RADIATION DOSE: NA LIMITATIONS: None. FINDINGS: LUNGS AND PLEURA: No opacities, masses or pneumothorax. No pleural effusion. MEDIASTINUM AND HILAR STRUCTURES: No masses. Contour normal. HEART AND VASCULAR STRUCTURES: Heart normal in size. Normal vasculature. BONES: No acute findings. HARDWARE: The PICC line is present on the left. The tip of the catheter is in the superior vena cava . OTHER: No other significant finding. IMPRESSION: PICC line placement as described. TECHNICAL DOCUMENTATION: JOB ID: [id number]
--- NOTE | 2016-11-30 15:45 | RADIOLOGY REPORT (SQ) ---
EXAM DESCRIPTION: PICC LINE REPLACEMENT; FLUORO/CV PLACEMENT COMPLETED DATE/TIME: 11/30/2016 3:34 pm REASON FOR STUDY: malfunction of picc line; PICC REPLACEMENT FOR IV ABX COMPARISON: None. FLUOROSCOPY TIME: 31 seconds. 1 images saved to PACS. TECHNIQUE: Fluoroscopic guided PICC replacement. LIMITATIONS: None. PROCEDURE: After written consent and assessment were obtained, the patient was brought into the fluo roscopy room and place supine on the table. The left arm an existing PICC was prepped and draped in a sterile fashion. The entry site was anesthetized with 1% lidocaine. A .018 guide wire was then in serted through the existing PICC and into the venous system. The old catheter was then removed and a new catheter measuring 47 cm was advanced over the wire and into the venous system. The wire was the n removed and the catheter was adhered to the patients arm with a stat lock. The catheter was then as pirated and flushed and a sterile bandage was placed over the access site. A fluoroscopic spot image was saved to PACS confirming the catheter tip within the superior vena cava. IMPRESSION: SUCCESSFUL OVER THE WIRE REPLACEMENT OF AN OLD PICC FOR A NEW ONE THAT IS 5 FR DUAL LUME N 47 CM PICC IN THE LEFT ARM. COMMENT: Patient medication list reviewed: Yes- Quality ID# [id number]:Eligible professional attests to doc umenting in the medical record they obtained, updated, or reviewed the patient's current medications. . Quality ID 145: Final reports for procedures using fluoroscopy that document radiation exposure salome roger, or exposure time and number of fluorographic images (if radiation exposure indices are not avail able) Quality ID #76: The patient was prepped and draped using maximum sterile barrier technique including cap, mask, sterile gown, sterile gloves, a large sterile sheet, hand hygiene, and 2% Chlorhexidine fo r cutaneous antisepsis. When ultrasound is used, sterile ultrasound techniques are followed requiring sterile gel and sterile probes. TECHNICAL DOCUMENTATION: JOB ID: [id number] [employer]- All Rights Reserved
[2016-11-30 16:26] VITALS: BP 137/88
== END 2016-11-30 16:26 | disposition home or self-care (01) ==
LOC: ER 12:01
DX: T82.898A Other specified complication of vascular prosthetic devices, implants and grafts, initial encounter (principal); I48.91 Unspecified atrial fibrillation; I50.9 Heart failure, unspecified; I25.10 Atherosclerotic heart disease of native coronary artery without angina pectoris; I25.2 Old myocardial infarction; E78.00 Pure hypercholesterolemia, unspecified; I11.0 Hypertensive heart disease with heart failure; E11.9 Type 2 diabetes mellitus without complications
CPT/HCPCS: 99284; 71010; 36584; 77001; C1769; J1642

== ENCOUNTER 2017-02-03 10:35 | Emergency (ER) | payer OTHER ==
[2017-02-03 12:14] VITALS: BP 151/93
[2017-02-03] MEDS ORDERED: KETOROLAC TROMETHAMINE 60 MG/2 ML SDV IM ONE (12:40)
--- NOTE | 2017-02-03 12:46 | ER Document Report ---
ED Neck/Back Problem - General Chief Complaint: Fall Injury Stated Complaint: BACK PAIN Time Seen by Provider: 02/03/17 12:33 Notes: 61 yo male c/o left low back pain x 5 days. pt fell approximately 4ft from porch, landed on left side. pain has been persistant. difficult to stand straight. denies any radiculopathy, paresthesia, bowel/bladder dysfunction. no fever. no previous back injury. + hx/o degenerative disc disease. TRAVEL OUTSIDE OF THE [place] IN LAST 30 DAYS: No - HPI Patient complains to provider of: Pain Where: Home Onset: Sudden Timing: Constant Quality of pain: Sharp Pain Level: 5 Context: Fall/near-fall Recent injury: Yes Associated symptoms: None, Lower back pain. denies: Incontinence, Motor loss, Numbness/tingling, Radiation to leg, Sensory loss, Unable to urinate, Upper back pain Exacerbated by: Other - standing straight and laying supine Similar symptoms previously: No Recently seen / treated by doctor: No - followed by [place] [facility] - Related Data Allergies/Adverse Reactions: typhoid vaccine [Typhoid Vaccine] Allergy (Severe, Verified 02/03/17 10:46) Seizures Past Medical History - General Information source: Patient - Social History Smoking Status: Former Smoker Chew tobacco use (# tins/day): No Frequency of alcohol use: None Drug Abuse: None Lives with: Alone Family History: Reviewed & Not Pertinent, CAD, Other - Mother lived to be 94. Father 68 Patient has suicidal ideation: No Patient has homicidal ideation: No - Past Medical History Cardiac Medical History: Reports: Hx Atrial Fibrillation, Hx Congestive Heart Failure - Diastolic dysfunction, Hx Coronary Artery Disease, Hx Heart Attack - [place] 08/2011, Hx Hypercholesterolemia, Hx Hypertension Denies: Hx Peripheral Vascular Disease, Hx Pulmonary Embolism, Hx Heart Murmur Pulmonary Medical History: Reports: Hx Bronchitis, Hx Pneumonia, Hx Sleep Apnea - uses CPAP, had throat/chin surgery d/t Sleep Apnea Denies: Hx Asthma, Hx COPD, Hx Respiratory Failure, Hx Tuberculosis Neurological Medical History: Denies: Hx Cerebrovascular Accident, Hx Seizures Endocrine Medical History: Reports: Hx Diabetes Mellitus Type 2. Denies: Hx Graves' Disease, Hx Hyperthyroidism, Hx Hypothyroidism Renal/ Medical History: Denies: Hx Peritoneal Dialysis Malignancy Medical History: Denies Hx Leukemia, Denies Hx Lung Cancer GI Medical History: Reports: Hx Gastroesophageal Reflux Disease, Hx Hiatal Hernia, Hx Ulcer. Denies: Hx Crohn's Disease, Hx Irritable Bowel, Hx Liver Failure Musculoskeltal Medical History: Reports Hx Arthritis, Denies Hx Fibromyalgia, Denies Hx Multiple Sclerosis, Denies Hx Muscular Dystrophy Psychiatric Medical History: Reports: Hx Depression, Hx Post Traumatic Stress Disorder Denies: Hx Bipolar Disorder, Hx Dementia, Hx Schizophrenia Traumatic Medical History: Denies: Hx Fractures Infectious Medical History: Denies: Hx HIV Past Surgical History: Reports: Hx Cardiac Catheterization, Hx Coronary Stent - x2 2011, Hx Orthopedic Surgery, Hx Tonsillectomy - and adenoids. Denies: Hx Appendectomy, Hx Bowel Surgery, Hx Cholecystectomy, Hx Colostomy, Hx Coronary Artery Bypass Graft, Hx Gastric Bypass Surgery, Hx Herniorrhaphy, Hx Pacemaker - Immunizations Hx Diphtheria, Pertussis, Tetanus Vaccination: No Hx Pneumococcal Vaccination: 04/14/16 Review of Systems - Review of Systems Constitutional: No symptoms reported EENT: No symptoms reported Cardiovascular: No symptoms reported Respiratory: No symptoms reported Gastrointestinal: No symptoms reported Genitourinary: No symptoms reported Male Genitourinary: No symptoms reported Musculoskeletal: See HPI, Back pain Skin: No symptoms reported Hematologic/Lymphatic: No symptoms reported Neurological/Psychological: No symptoms reported Physical Exam - Vital signs Vitals: Temp Pulse Resp BP Pulse Ox 97.9 F 62 17 151/93 H 96 02/03/17 10:45 02/03/17 10:45 02/03/17 10:45 02/03/17 10:45 02/03/17 10:45 Interpretation: Normal - General General appearance: Appears well, Alert - HEENT Head: Normocephalic, Atraumatic Eyes: Normal Pupils: PERRL - Respiratory Respiratory status: No respiratory distress Chest status: Nontender Breath sounds: Normal Chest palpation: Normal - Cardiovascular Rhythm: Regular Heart sounds: Normal auscultation Murmur: No - Abdominal Inspection: Normal Distension: No distension Bowel sounds: Normal Tenderness: Nontender Organomegaly: No organomegaly - Back Back: Tender, Vertebra tenderness - lumbar spinal and left paraspinal tenderness. neg SLT. No: CVA tenderness - Extremities General upper extremity: Normal inspection, Nontender, Normal color, Normal ROM , Normal temperature General lower extremity: Normal inspection, Nontender, Normal color, Normal ROM , Normal temperature, Normal weight bearing. No: Taz's sign - Neurological Neuro grossly intact: Yes Cognition: Normal Orientation: AAOx4 Brockwell Coma Scale Eye Opening: Spontaneous Brockwell Coma Scale Verbal: Oriented Brockwell Coma Scale Motor: Obeys Commands Brockwell Coma Scale Total: 15 Speech: Normal Motor strength normal: LUE, RUE, LLE, RLE Sensory: Normal - Psychological Associated symptoms: Normal affect, Normal mood - Skin Skin Temperature: Warm Skin Moisture: Dry Skin Color: Normal Course - Re-evaluation Re-evalutation: 02/03/17 12:45 pt neurologically intact. no s/s cauda equina, epidural abscess. no red flags identified. no emergent imaging indicated. 02/03/17 14:00 rad report reviewed: 1. No evidence of acute injury. 2. Chronic grade 1 anterolisthesis of L5 on S1 secondary to chronic pars defects. 3. Degenerative changes most prominently at L1- 2 and L5-S1 results reviewed with patient. pt stable for discharge and follow up with chiropractic and primary care. will give short Rx of pain med, muscle relaxant and anti-inflammatory medication. pt agreeable with plan - Vital Signs Vital signs: Temp Pulse Resp BP Pulse Ox 97.9 F 62 17 151/93 H 96 02/03/17 10:45 02/03/17 10:45 02/03/17 10:45 02/03/17 10:45 02/03/17 10:45 Discharge - Discharge Clinical Impression: Low back pain Qualifiers: Chronicity: acute Back pain laterality: midline Sciatica presence: without sciatica Qualified Code(s): M54.5 - Low back pain Condition: Stable Disposition: HOME, SELF-CARE Instructions: Ice Packs ([facility]), Low Back Pain ([facility]), Muscle Relaxers ([facility]), Oral Narcotic Medication ([facility]), Warm Packs ([facility]) Additional Instructions: Your xrays are negative for fracture but is showing significant degenerative changes and some signifcant misalignment Please take your medications as prescribed Follow up with your primary care for further evaluation and treatment You may benefit from a chiropractic evaluation DR Diaz [id number] [place], [place] [id number] Prescriptions: Methocarbamol [Robaxin 500 Mg Tablet] 1,000 mg PO Q6 #30 tablet Oxycodone HCl/Acetaminophen [Percocet 5-325 mg Tablet] 1 - 2 tab PO ASDIR PRN # 25 tablet PRN Reason: Forms: Elevated Blood Pressure Referrals: DORINA YOO MD [Primary Care Provider] - Follow up as needed
--- NOTE | 2017-02-03 13:47 | RADIOLOGY REPORT (SQ) ---
EXAM DESCRIPTION: L SPINE WHOLE COMPLETED DATE/TIME: 02/03/2017 1:22 pm REASON FOR STUDY: fell 4 ft COMPARISON: 08/24/2012 NUMBER OF VIEWS: Five views including obliques. TECHNIQUE: AP, lateral, oblique, and sacral radiographic images acquired of the lumbar spine. LIMITATIONS: Motion artifact. FINDINGS: MINERALIZATION: Normal. SEGMENTATION: Normal. No transitional anatomy. ALIGNMENT: Chronic grade 1 anterolisthesis of L5 on S1 secondary to bilateral chronic pars defects. VERTEBRAE: Maintained height. No fracture or worrisome bone lesion. DISCS: Severe disc space loss at L5-S1 with vacuum disc phenomena and discogenic sclerosis. Moderate disc space loss at L1-2. Small osteophytes at most levels most prominently at L1-2 and L5-S1 POSTERIOR ELEMENTS: Bilateral chronic pars defects at L5. No acute abnormality. HARDWARE: None in the spine. PARASPINAL SOFT TISSUES: Normal. PELVIS: Intact as visualized. No fractures or worrisome bone lesions. SI joints intact. OTHER: No other significant finding. IMPRESSION: 1. No evidence of acute injury. 2. Chronic grade 1 anterolisthesis of L5 on S1 secondary to chronic pars defects. 3. Degenerative changes most prominently at L1- 2 and L5-S1. TECHNICAL DOCUMENTATION: JOB ID: [id number] [employer]- All Rights Reserved
== END 2017-02-03 14:16 | disposition home or self-care (01) ==
LOC: ER 10:35
DX: M54.5 Low back pain (principal); W17.89XA Other fall from one level to another, initial encounter; Y92.008 Other place in unspecified non-institutional (private) residence as the place of occurrence of the external cause; M47.9 Spondylosis, unspecified; I25.10 Atherosclerotic heart disease of native coronary artery without angina pectoris; I25.2 Old myocardial infarction; I10 Essential (primary) hypertension; E11.9 Type 2 diabetes mellitus without complications; Z98.61 Coronary angioplasty status; Z87.891 Personal history of nicotine dependence; Z88.7 Allergy status to serum and vaccine
CPT/HCPCS: 99283; 96372; 72110; J1885

== ENCOUNTER 2017-04-12 12:33 | Emergency (ER) | payer OTHER ==
[2017-04-12] MEDS ORDERED: ASPIRIN 81 MG TABLET, CHEWABLE PO ONE (12:34)
--- NOTE | 2017-04-12 12:42 | ER Document Report ---
ED General - General Stated Complaint: CHEST PAIN Time Seen by Provider: 04/12/17 12:40 Notes: 61-year-old male with coronary artery disease 2 stents presents with chest pain for 3 days initially intermittent and then constant since 5:30 AM left-sided radiating arm pressure-like similar to prior angina. He did not take nitro was given some nitro by EMS which brought his pain down to a 1 or 2. They are withheld aspirin because he takes aspirin Plavix and warfarin at home. Denies cough or fever. Ongoing right knee pain after knee replacement. TRAVEL OUTSIDE OF THE [place] IN LAST 30 DAYS: No - Related Data Allergies/Adverse Reactions: typhoid vaccine [Typhoid Vaccine] Allergy (Severe, Verified 04/12/17 14:22) Seizures Home Medications: Current Home Medications Acetaminophen [Pain Relief] 500 mg PO Q4HP PRN 04/12/17 [History] Docusate Sodium 100 mg PO BID 04/12/17 [History] Dorzolamide HCl/Timolol Maleat [Dorzolamide-Timolol Eye Drops] 1 drop OP BID [History] Hydrochlorothiazide 25 mg PO DAILY 04/12/17 [History] Latanoprost [Xalatan 0.005% Oph Soln 2.5 ml] 1 drop OP QHS 04/12/17 [History] Past Medical History - Social History Smoking Status: Former Smoker Family History: Reviewed & Not Pertinent, CAD, Other - Mother lived to be 94. Father 68 - Past Medical History Cardiac Medical History: Reports: Hx Atrial Fibrillation, Hx Congestive Heart Failure - Diastolic dysfunction, Hx Coronary Artery Disease, Hx Heart Attack - [place] 08/2011, Hx Hypercholesterolemia, Hx Hypertension Denies: Hx Peripheral Vascular Disease, Hx Pulmonary Embolism, Hx Heart Murmur Pulmonary Medical History: Reports: Hx Bronchitis, Hx Pneumonia, Hx Sleep Apnea - uses CPAP, had throat/chin surgery d/t Sleep Apnea Denies: Hx Asthma, Hx COPD, Hx Respiratory Failure, Hx Tuberculosis Neurological Medical History: Denies: Hx Cerebrovascular Accident, Hx Seizures Endocrine Medical History: Reports: Hx Diabetes Mellitus Type 2. Denies: Hx Graves' Disease, Hx Hyperthyroidism, Hx Hypothyroidism Renal/ Medical History: Denies: Hx Peritoneal Dialysis Malignancy Medical History: Denies Hx Leukemia, Denies Hx Lung Cancer GI Medical History: Reports: Hx Gastroesophageal Reflux Disease, Hx Hiatal Hernia, Hx Ulcer. Denies: Hx Crohn's Disease, Hx Irritable Bowel, Hx Liver Failure, Hx Pancreatitis Musculoskeltal Medical History: Reports Hx Arthritis, Denies Hx Fibromyalgia, Denies Hx Multiple Sclerosis, Denies Hx Muscular Dystrophy Psychiatric Medical History: Reports: Hx Depression, Hx Post Traumatic Stress Disorder Denies: Hx Bipolar Disorder, Hx Dementia, Hx Schizophrenia Traumatic Medical History: Denies: Hx Fractures Infectious Medical History: Denies: Hx HIV Past Surgical History: Reports: Hx Cardiac Catheterization, Hx Coronary Stent - x2 2011, Hx Orthopedic Surgery, Hx Tonsillectomy - and adenoids. Denies: Hx Appendectomy, Hx Bowel Surgery, Hx Cholecystectomy, Hx Colostomy, Hx Coronary Artery Bypass Graft, Hx Gastric Bypass Surgery, Hx Herniorrhaphy, Hx Pacemaker - Immunizations Hx Diphtheria, Pertussis, Tetanus Vaccination: No Hx Pneumococcal Vaccination: 04/14/16 Review of Systems - Review of Systems Notes: REVIEW OF SYSTEMS GEN: Denies fever, chills, weight loss ENT: Denies sore throat, nasal discharge, ear pain EYES: Denies blurry vision, eye pain, discharge CV: D chest pain, chronic leg edema RESP: Denies cough, shortness of breath, wheezing GI: Denies abdominal pain, nausea, vomiting, diarrhea MSK: Right knee pain SKIN: Denies rash, skin lesions LYMPH: Denies swollen glands/lymph nodes NEURO: Denies headache, focal weakness or numbness, dizziness PSYCH: Denies depression, suicidal or homicidal ideation PHYSICAL EXAMINATION General: No acute distress, well-nourished Head: Atraumatic, normocephalic ENT: Mouth normal, oropharynx moist, no exudates or tonsillar enlargement Eyes: Conjunctiva normal, pupils equal, lids normal Neck: No JVD, supple, no guarding CVS: Normal rate, regular rhythm, no murmurs Resp: No resp distress, equal and normal breath sounds bilaterally GI: Nondistended, soft, no tenderness to palpation, no rebound or guarding Ext: No deformities, mild right knee effusion and restricted range of motion but no warmth. T Back: No CVA or midline TTP Skin: No rash, warm Lymphatic: No lymphadeopathy noted Neuro: Awake, alert. Face symmetric. GCS 15. Physical Exam - Vital signs Vitals: Pulse Ox 97 04/12/17 12:34 Course - Re-evaluation Re-evalutation: 04/12/17 12:42 Patient presents with familiar sounding typical chest pain relieved with nitro. EKG nonischemic. Concern for unstable angina. Patient is on warfarin so we will withhold Lovenox but I will aggressively treat pain with nitro do serial ECGs and plan for admission. 04/12/17 14:16 Pn free. Trop neg. [facility] at [facility] accepted for CARD TELE. GUTHRIE. UNSTABLE ANGINA - Vital Signs Vital signs: Temp Pulse Resp BP Pulse Ox 97.8 F 19 113/78 100 04/12/17 13:12 04/12/17 14:00 04/12/17 12:43 04/12/17 14:00 - Laboratory Result Diagrams: 04/12/17 13:03 04/12/17 13:03 Laboratory results interpreted by me: 04/12/17 04/12/17 04/12/17 13:03 13:03 13:03 WBC 11.8 H Hgb 12.2 L Hct 37.8 L MCV 76 L MCH 24.6 L RDW 16.6 H Plt Count 479 H PT 25.8 H APTT 41.7 H Total Protein 8.8 H Discharge - Discharge Clinical Impression: Unstable angina Condition: Good Disposition: [facility]
--- NOTE | 2017-04-12 13:02 | RADIOLOGY REPORT (SQ) ---
EXAM DESCRIPTION: CHEST SINGLE VIEW COMPLETED DATE/TIME: 04/12/2017 12:54 pm REASON FOR STUDY: bed 18 cp COMPARISON: 11/30/2016 EXAM PARAMETERS: NUMBER OF VIEWS: One view. TECHNIQUE: Single frontal radiographic view of the chest acquired. RADIATION DOSE: NA LIMITATIONS: None. FINDINGS: LUNGS AND PLEURA: No opacities, masses or pneumothorax. No pleural effusion. MEDIASTINUM AND HILAR STRUCTURES: No masses. Contour normal. HEART AND VASCULAR STRUCTURES: Heart normal in size. Normal vasculature. BONES: No acute findings. HARDWARE: None in the chest. OTHER: No other significant finding. IMPRESSION: NO ACUTE RADIOGRAPHIC FINDING IN THE CHEST. TECHNICAL DOCUMENTATION: JOB ID: [id number]
[2017-04-12 13:21] LABS: ABSOLUTE BASOPHILS # (AUTO) 0.1 10^3/uL (0.0-0.2); ABSOLUTE EOSINOPHILS # (AUTO) 0.2 10^3/uL (0.0-0.6); ABSOLUTE LYMPHOCYTES (AUTO) 2.6 10^3/uL (0.5-4.7); ABSOLUTE MONOCYTES (AUTO) 1.1 10^3/uL (0.1-1.4); ABSOLUTE NEUT (AUTO) 7.8 10^3/uL (1.7-8.2); BASOPHILS % (AUTO) 0.8 % (0-2); EOSINOPHILS % (AUTO) 1.5 % (0-6); HEMATOCRIT 37.8 % (37.9-51.0); HEMOGLOBIN 12.2 g/dL (13.5-17.0); HGB HCT DIFFERENCE -1.2; LYMPHOCYTES % (AUTO) 21.9 % (13-45); MEAN CORPUSCULAR HEMOGLOBIN 24.6 pg (27.0-33.4); MEAN CORPUSCULAR HGB CONC 32.2 g/dL (32.0-36.0); MEAN CORPUSCULAR VOLUME 76 fl (80-97); MONOCYTES % (AUTO) 9.4 % (3-13); RED BLOOD COUNT 4.95 10^6/uL (4.35-5.55); RED CELL DISTRIBUTION WIDTH 16.6 % (11.5-14.0); SEGMENTED NEUTROPHILS % (AUTO) 66.4 % (42-78); WHITE BLOOD COUNT 11.8 10^3/uL (4.0-10.5)
[2017-04-12 13:28] LABS: PROTHROMBIN TIME 25.8 SEC (11.4-15.4)
[2017-04-12 13:29] LABS: PARTIAL THROMBOPLASTIN TIME 41.7 SEC (23.5-35.8)
[2017-04-12 13:42] LABS: ALANINE AMINOTRANSFERASE 21 U/L (21-72); ALBUMIN 4.1 g/dL (3.5-5.0); ALKALINE PHOSPHATASE 96 U/L (38-126); ANION GAP 12 (5-19); ASPARTATE AMINO TRANSFERASE 21 U/L (17-59); BILIRUBIN,DIRECT 0.4 mg/dL (0.0-0.4); BILIRUBIN,TOTAL 0.4 mg/dL (0.2-1.3); BLOOD UREA NITROGEN 14 mg/dL (7-20); CALCIUM 9.5 mg/dL (8.4-10.2); CARBON DIOXIDE 27 mmol/L (22-30); CHLORIDE 104 mmol/L (98-107); CREATINE KINASE 122 U/L (55-170); CREATININE RESULT 0.91 mg/dL (0.52-1.25); GLUCOSE 104 mg/dL (75-110); POTASSIUM 4.2 mmol/L (3.6-5.0); SODIUM 143.3 mmol/L (137-145); TOTAL PROTEIN 8.8 g/dL (6.3-8.2)
[2017-04-12 13:58] LABS: CREATINE KINASE MB 0.67 ng/mL (<4.55)
[2017-04-12 14:00] LABS: TROPONIN I < 0.012 ng/mL
--- NOTE | 2017-04-12 14:18 | ER Document Report ---
ED General - General Chief Complaint: Chest Pain Stated Complaint: CHEST PAIN Time Seen by Provider: 04/12/17 12:40 TRAVEL OUTSIDE OF THE [place] IN LAST 30 DAYS: No - Related Data Allergies/Adverse Reactions: typhoid vaccine [Typhoid Vaccine] Allergy (Severe, Verified 02/03/17 10:46) Seizures Past Medical History - Social History Smoking Status: Former Smoker Chew tobacco use (# tins/day): No Frequency of alcohol use: None Drug Abuse: [place] Family History: Reviewed & Not Pertinent, CAD, Other - Mother lived to be 94. Father 68 Patient has suicidal ideation: No Patient has homicidal ideation: No - Past Medical History Cardiac Medical History: Reports: Hx Atrial Fibrillation, Hx Congestive Heart Failure - Diastolic dysfunction, Hx Coronary Artery Disease, Hx Heart Attack - [place] 08/2011, Hx Hypercholesterolemia, Hx Hypertension Denies: Hx Peripheral Vascular Disease, Hx Pulmonary Embolism, Hx Heart Murmur Pulmonary Medical History: Reports: Hx Bronchitis, Hx Pneumonia, Hx Sleep Apnea - uses CPAP, had throat/chin surgery d/t Sleep Apnea Denies: Hx Asthma, Hx COPD, Hx Respiratory Failure, Hx Tuberculosis Neurological Medical History: Denies: Hx Cerebrovascular Accident, Hx Seizures Endocrine Medical History: Reports: Hx Diabetes Mellitus Type 2. Denies: Hx Graves' Disease, Hx Hyperthyroidism, Hx Hypothyroidism Renal/ Medical History: Denies: Hx Peritoneal Dialysis Malignancy Medical History: Denies Hx Leukemia, Denies Hx Lung Cancer GI Medical History: Reports: Hx Gastroesophageal Reflux Disease, Hx Hiatal Hernia, Hx Ulcer. Denies: Hx Crohn's Disease, Hx Irritable Bowel, Hx Liver Failure, Hx Pancreatitis Musculoskeltal Medical History: Reports Hx Arthritis, Denies Hx Fibromyalgia, Denies Hx Multiple Sclerosis, Denies Hx Muscular Dystrophy Psychiatric Medical History: Reports: Hx Depression, Hx Post Traumatic Stress Disorder Denies: Hx Bipolar Disorder, Hx Dementia, Hx Schizophrenia Traumatic Medical History: Denies: Hx Fractures Infectious Medical History: Denies: Hx HIV Past Surgical History: Reports: Hx Cardiac Catheterization, Hx Coronary Stent - x2 2011, Hx Orthopedic Surgery, Hx Tonsillectomy - and adenoids. Denies: Hx Appendectomy, Hx Bowel Surgery, Hx Cholecystectomy, Hx Colostomy, Hx Coronary Artery Bypass Graft, Hx Gastric Bypass Surgery, Hx Herniorrhaphy, Hx Pacemaker - Immunizations Hx Diphtheria, Pertussis, Tetanus Vaccination: No Hx Pneumococcal Vaccination: 04/14/16 Physical Exam - Vital signs Vitals: Pulse Ox 97 04/12/17 12:34 Course - Vital Signs Vital signs: Temp Pulse Resp BP Pulse Ox 97.8 F 16 113/78 100 04/12/17 13:12 04/12/17 12:43 04/12/17 12:43 04/12/17 12:43 - Laboratory Result Diagrams: 04/12/17 13:03 04/12/17 13:03 Laboratory results interpreted by me: 04/12/17 04/12/17 04/12/17 13:03 13:03 13:03 WBC 11.8 H Hgb 12.2 L Hct 37.8 L MCV 76 L MCH 24.6 L RDW 16.6 H Plt Count 479 H PT 25.8 H APTT 41.7 H Total Protein 8.8 H Critical Care Note - Critical Care Note Total time excluding time spent on procedures (mins): 35 Comments: The above patient is critically ill. Not including procedures, but including direct re-evaluations, speaking with patient and/or consultants, interpreting results, and documenting, I spent the total amount of minute listed listed above on critical care time Discharge - Discharge Clinical Impression: Unstable angina Condition: Good Disposition: [facility]
[2017-04-12 20:12] VITALS: BP 118/73
--- NOTE | 2017-04-13 15:28 | EKG REPORT ---
SEVERITY:- NORMAL ECG - SINUS RHYTHM : Confirmed by: Marianela Buckner 13-Apr-2017 15:27:39
--- NOTE | 2017-04-13 15:28 | EKG REPORT ---
SEVERITY:- ABNORMAL ECG - SINUS RHYTHM PROBABLE INFERIOR INFARCT, OLD : Confirmed by: Marianela Buckner 13-Apr-2017 15:27:35
== END 2017-04-12 21:04 | disposition short-term general hospital (02) ==
LOC: ER 12:33
DX: I25.110 Atherosclerotic heart disease of native coronary artery with unstable angina pectoris (principal); I10 Essential (primary) hypertension; I25.2 Old myocardial infarction; E11.9 Type 2 diabetes mellitus without complications; Z88.7 Allergy status to serum and vaccine; Z82.49 Family history of ischemic heart disease and other diseases of the circulatory system; Z95.5 Presence of coronary angioplasty implant and graft
CPT/HCPCS: 36415; 71010; 80053; 82550; 82553; 84484; 85025; 85610; 85730; 93005; 93010; 99291

== ENCOUNTER → 2017-07-07 | Outpatient (CLI) | payer OTHER ==
[2017-07-07 15:51] LABS: ABSOLUTE BASOPHILS # (AUTO) 0.1 10^3/uL (0.0-0.2); ABSOLUTE EOSINOPHILS # (AUTO) 0.2 10^3/uL (0.0-0.6); ABSOLUTE LYMPHOCYTES (AUTO) 3.4 10^3/uL (0.5-4.7); ABSOLUTE MONOCYTES (AUTO) 1.3 10^3/uL (0.1-1.4); ABSOLUTE NEUT (AUTO) 5.8 10^3/uL (1.7-8.2); BASOPHILS % (AUTO) 0.9 % (0-2); EOSINOPHILS % (AUTO) 2.1 % (0-6); HEMATOCRIT 33.9 % (37.9-51.0); HEMOGLOBIN 10.9 g/dL (13.5-17.0); LYMPHOCYTES % (AUTO) 31.2 % (13-45); MEAN CORPUSCULAR HEMOGLOBIN 22.9 pg (27.0-33.4); MEAN CORPUSCULAR HGB CONC 32.2 g/dL (32.0-36.0); MEAN CORPUSCULAR VOLUME 71 fl (80-97); MONOCYTES % (AUTO) 11.8 % (3-13); PLATELET COUNT 480 10^3/uL (150-450); RED BLOOD COUNT 4.76 10^6/uL (4.35-5.55); RED CELL DISTRIBUTION WIDTH 17.1 % (11.5-14.0); TOTAL CELLS COUNTED % (AUTO) 100 %; WHITE BLOOD COUNT 10.8 10^3/uL (4.0-10.5)
[2017-07-07 16:16] LABS: ANION GAP 13 (5-19); BLOOD UREA NITROGEN 15 mg/dL (7-20); C-REACTIVE PROTEIN 60.4 mg/L (<10.0); CALCIUM 9.8 mg/dL (8.4-10.2); CARBON DIOXIDE 23 mmol/L (22-30); CHLORIDE 104 mmol/L (98-107); GLUCOSE 90 mg/dL (75-110); POTASSIUM 4.4 mmol/L (3.6-5.0); SODIUM 140.3 mmol/L (137-145)
[2017-07-07 16:38] LABS: ERYTHROCYTE SEDIMENTATION RATE 96 mm/hr (0-20)
== END ==
LOC: OD 15:10
PROVIDERS: ATTEND Orthopaedic Surgery
DX: M25.462 Effusion, left knee (principal)
CPT/HCPCS: 36415; 80048; 85025; 85652; 86140

== ENCOUNTER 2018-01-19 08:20 | Emergency (ER) | payer OTHER ==
[2018-01-19] MEDS ORDERED: OXYCODONE-ACETAMINOPHEN 5-325 MG TABLET PO ONE (09:25)
--- NOTE | 2018-01-19 09:42 | ER Document Report ---
ED Extremity Problem, Lower - General Chief Complaint: Knee Pain Stated Complaint: LOWER LEG SWELLING Time Seen by Provider: 01/19/18 09:08 Mode of Arrival: Ambulatory Information source: Patient Notes: Chief complaint: Right knee pain History of complain:( obtained from----patient) 62 years old male presents today with right knee pain. He had a knee replacement last year. Had 4 rounds of infections with IV antibiotics. Last few days he has been walking more than usual and playing being steps more than usual. Noted gradual swelling of the right knee to the point it has become difficult to walk and painful therefore presented to the ED. Denies any fever chills or other constitutional symptoms. Onset: As above gradual Duration: Last few days Severity: Moderate Quality: Sharp Context: Knee replacement Exacerbating factor and relieving factors: Walking and climbing the stairs REVIEW OF SYSTEMS: CONSTITUTIONAL : Denies fever, chills, or sweats. Denies recent illness. EENT: Denies eye, ear, throat, or mouth pain or symptoms. Denies nasal or sinus congestion or discharge. Denies throat, tongue, or mouth swelling or difficulty swallowing. CARDIOVASCULAR: Denies chest pain. Denies palpitations or racing or irregular heart beat. Denies ankle edema. RESPIRATORY: Denies cough, cold, or chest congestion. Denies shortness of breath, difficulty breathing, or wheezing. GASTROINTESTINAL: Denies distention. Denies nausea, vomiting, or diarrhea. Denies blood in vomitus, stools, or per rectum. Denies black, tarry stools. Denies constipation. GENITOURINARY: Denies difficulty urinating, painful urination, burning, frequency, blood in urine, or discharge. FEMALE GENITOURINARY: Denies vaginal bleeding, heavy or abnormal periods, irregular periods. Denies vaginal discharge or odor. MUSCULOSKELETAL: SKIN: Denies rash, lesions or sores. HEMATOLOGIC : Denies easy bruising or bleeding. LYMPHATIC: Denies swollen, enlarged glands. NEUROLOGICAL: Denies confusion or altered mental status. Denies passing out or loss of consciousness. Denies dizziness or lightheadedness. Denies headache. Denies weakness or paralysis or loss of use of either side. Denies problems with gait or speech. Denies sensory loss, numbness, or tingling. Denies seizures. PSYCHIATRIC: Denies anxiety or stress. Denies depression, suicidal ideation, or homicidal ideation. ALL OTHER SYSTEMS REVIEWED AND NEGATIVE. PHYSICAL EXAMINATION: GENERAL: Well-appearing, well-nourished and in no acute distress. HEAD: Atraumatic, normocephalic. EYES: Pupils equal round and reactive to light, extraocular movements intact, conjunctiva are normal. ENT: Nares patent, oropharynx clear without exudates. Moist mucous membranes. NECK: Normal range of motion, supple without lymphadenopathy LUNGS: Breath sounds clear to auscultation bilaterally and equal. No wheezes rales or rhonchi. HEART: Regular rate and rhythm without murmurs ABDOMEN: Soft, nontender, nondistended abdomen. No guarding, no rebound. No masses appreciated. Examination of genitals-deferred Musculoskeletal: Right knee-show surgical scar, swelling all around the knee including suprapatellar bursa infrapatellar bursa and the knee joint with fluctuant fluid. Skin is warm, tender to touch. Erythema difficult to distinguish as he is having dark skin NEUROLOGICAL: Cranial nerves grossly intact. Normal speech, normal gait. Normal sensory, motor exams PSYCH: Normal mood, normal affect. SKIN: Warm, Dry, normal turgor, no rashes or lesions noted. Dictation was performed using [employer] voice recognition software TRAVEL OUTSIDE OF THE [place] IN LAST 30 DAYS: No - HPI Notes: Dictated - Related Data Allergies/Adverse Reactions: typhoid vaccine [Typhoid Vaccine] Allergy (Severe, Verified 04/12/17 14:22) Seizures Past Medical History - Social History Smoking Status: Never Smoker Chew tobacco use (# tins/day): No Frequency of alcohol use: None Drug Abuse: None Family History: Reviewed & Not Pertinent, CAD, Other - Mother lived to be 94. Father 68 Patient has suicidal ideation: No Patient has homicidal ideation: No - Past Medical History Cardiac Medical History: Reports: Hx Atrial Fibrillation, Hx Congestive Heart Failure - Diastolic dysfunction, Hx Coronary Artery Disease, Hx Heart Attack - [place] 08/2011, Hx Hypercholesterolemia, Hx Hypertension Denies: Hx Peripheral Vascular Disease, Hx Pulmonary Embolism, Hx Heart Murmur Pulmonary Medical History: Reports: Hx Bronchitis, Hx Pneumonia, Hx Sleep Apnea - uses CPAP, had throat/chin surgery d/t Sleep Apnea Denies: Hx Asthma, Hx COPD, Hx Respiratory Failure, Hx Tuberculosis Neurological Medical History: Denies: Hx Cerebrovascular Accident, Hx Seizures Endocrine Medical History: Reports: Hx Diabetes Mellitus Type 2. Denies: Hx Graves' Disease, Hx Hyperthyroidism, Hx Hypothyroidism Renal/ Medical History: Denies: Hx Peritoneal Dialysis Malignancy Medical History: Denies Hx Leukemia, Denies Hx Lung Cancer GI Medical History: Reports: Hx Gastroesophageal Reflux Disease, Hx Hiatal Hernia, Hx Ulcer. Denies: Hx Crohn's Disease, Hx Irritable Bowel, Hx Liver Failure, Hx Pancreatitis Musculoskeletal Medical History: Reports Hx Arthritis, Denies Hx Fibromyalgia, Denies Hx Multiple Sclerosis, Denies Hx Muscular Dystrophy Psychiatric Medical History: Reports: Hx Depression, Hx Post Traumatic Stress Disorder Denies: Hx Bipolar Disorder, Hx Dementia, Hx Schizophrenia Traumatic Medical History: Denies: Hx Fractures Infectious Medical History: Denies: Hx HIV Past Surgical History: Reports: Hx Cardiac Catheterization, Hx Coronary Stent - x2 2011, Hx Orthopedic Surgery, Hx Tonsillectomy - and adenoids. Denies: Hx Appendectomy, Hx Bowel Surgery, Hx Cholecystectomy, Hx Colostomy, Hx Coronary Artery Bypass Graft, Hx Gastric Bypass Surgery, Hx Herniorrhaphy, Hx Pacemaker - Immunizations Hx Diphtheria, Pertussis, Tetanus Vaccination: No Hx Pneumococcal Vaccination: 04/14/16 Review of Systems - Review of Systems Notes: Dictated Physical Exam - Vital signs Vitals: Temp Pulse Resp BP Pulse Ox 98.3 F 76 16 148/87 H 96 01/19/18 08:32 01/19/18 08:32 01/19/18 08:32 01/19/18 08:32 01/19/18 08:32 - Notes Notes: Dictated Course - Re-evaluation Re-evalutation: 01/19/18 09:32 Given IV antibiotic 01/19/18 11:32 Patient was explained the finding of the radiology. Positive follow-up with orthopedic surgeon. - Vital Signs Vital signs: Temp Pulse Resp BP Pulse Ox 98.3 F 76 16 148/87 H 96 01/19/18 08:32 01/19/18 08:32 01/19/18 08:32 01/19/18 08:32 01/19/18 08:32 - Diagnostic Test Radiology reviewed: Reports reviewed - Radiology report reviewed, effusion noted no fractures. Questionable loosening of the tibial plate Discharge - Discharge Clinical Impression: Effusion, right knee, Cellulitis of right knee Condition: Fair Disposition: HOME, SELF-CARE Instructions: Use of Crutches ([facility]), Ice & Elevation ([facility]), Knee Immobilizing Splint ([facility]) Additional Instructions: Call your orthopedic surgeon soon as possible for follow-up. Prescriptions: Ciprofloxacin HCl [Cipro 500 mg Tablet] 500 mg PO BID #20 tablet Oxycodone HCl/Acetaminophen [Percocet 5-325 mg Tablet] 1 tab PO Q4H PRN #15 tablet PRN Reason: Referrals: RAIZA BELTRAN MD [Primary Care Provider] - Follow up as needed
[2018-01-19] MEDS ORDERED: OXYCODONE-ACETAMINOPHEN 5-325 MG TABLET ONE (09:47)
[2018-01-19] MEDS ORDERED: CIPROFLOXACIN 400 MG/D5W RTU 400 MG/200 ML RTUPB IV SCH (10:00)
[2018-01-19 10:12] LABS: ABSOLUTE BASOPHILS # (AUTO) 0.1 10^3/uL (0.0-0.2); ABSOLUTE EOSINOPHILS # (AUTO) 0.1 10^3/uL (0.0-0.6); ABSOLUTE LYMPHOCYTES (AUTO) 2.7 10^3/uL (0.5-4.7); ABSOLUTE MONOCYTES (AUTO) 1.4 10^3/uL (0.1-1.4); ABSOLUTE NEUT (AUTO) 6.6 10^3/uL (1.7-8.2); BASOPHILS % (AUTO) 0.8 % (0-2); EOSINOPHILS % (AUTO) 1.3 % (0-6); HEMATOCRIT 36.6 % (37.9-51.0); HEMOGLOBIN 11.5 g/dL (13.5-17.0); LYMPHOCYTES % (AUTO) 24.9 % (13-45); MEAN CORPUSCULAR HEMOGLOBIN 21.8 pg (27.0-33.4); MEAN CORPUSCULAR HGB CONC 31.5 g/dL (32.0-36.0); MEAN CORPUSCULAR VOLUME 69 fl (80-97); MONOCYTES % (AUTO) 12.9 % (3-13); PLATELET COUNT 471 10^3/uL (150-450); RED BLOOD COUNT 5.28 10^6/uL (4.35-5.55); RED CELL DISTRIBUTION WIDTH 19.6 % (11.5-14.0); SEGMENTED NEUTROPHILS % (AUTO) 60.1 % (42-78); TOTAL CELLS COUNTED % (AUTO) 100 %
--- NOTE | 2018-01-19 10:33 | RADIOLOGY REPORT (SQ) ---
EXAM DESCRIPTION: KNEE RIGHT 3 VIEWS COMPLETED DATE/TIME: 01/19/2018 10:23 am REASON FOR STUDY: Knee pain COMPARISON: None. NUMBER OF VIEWS: Four views. TECHNIQUE: AP, lateral, and both oblique radiographic images acquired of the right knee. LIMITATIONS: None. FINDINGS: MINERALIZATION: Normal. BONES: No acute fracture or dislocation. No worrisome bone lesions. JOINT: There is been a total joint replacement. There is lucency surrounding tibial component cannot be excluded. There is a small joint effusion. SOFT TISSUES: No soft tissue swelling. No radio-opaque foreign body. OTHER: No other significant finding. IMPRESSION: Prior total knee replacement. There is a joint effusion. There is lucency surrounding the tibial component and loosening cannot be excluded. TECHNICAL DOCUMENTATION: JOB ID: [id number] [employer]- All Rights Reserved Reading location - IP/workstation name: [email or web address]
[2018-01-19 11:54] VITALS: BP 132/76
== END 2018-01-19 11:54 | disposition home or self-care (01) ==
LOC: ER 08:20
DX: L03.115 Cellulitis of right lower limb (principal); M25.461 Effusion, right knee; M25.561 Pain in right knee; Z96.651 Presence of right artificial knee joint; E11.9 Type 2 diabetes mellitus without complications; I25.10 Atherosclerotic heart disease of native coronary artery without angina pectoris; I10 Essential (primary) hypertension; I25.2 Old myocardial infarction; Z88.7 Allergy status to serum and vaccine; Z95.5 Presence of coronary angioplasty implant and graft
CPT/HCPCS: 99284; 96365; 36415; 87040; 85025; 73562; J0744

== ENCOUNTER 2018-05-07 10:40 | Emergency (ER) | payer OTHER ==
[2018-05-07] MEDS ORDERED: DIPHENHYDRAMINE HCL 50 MG/ML VIAL IV ONE (11:00)
[2018-05-07] MEDS ORDERED: PREDNISONE 20 MG TABLET PO ONE (11:00)
--- NOTE | 2018-05-07 11:25 | ER Document Report ---
ED Oral Problem - General Chief Complaint: Lip Swelling Stated Complaint: LIP SWELLING Time Seen by Provider: 05/07/18 11:00 Notes: 62-year-old male with past medical history as recorded including right knee surgery in October 2015. Patient supposedly had multiple episodes of possible intra -articular infection requiring PICC line and antibiotics. This did not improve so will allow April 21 of this year, the patient at the [facility] had repeat knee surgery with PICC line placement and placed on 3 times a day cefazolin that was started on April 21. Only other new medications are Eliquis which was started on April 14 as well as oxycodone that the patient was taking for pain. Patient states when 3 days ago he started to have some mild bilateral hand swelling. He was also having some itching he believes while taking the oxycodone. He stopped taking the oxycodone 3 days ago and the hand swelling has subsided. Over the last 12 hours the patient has developed some swelling to his lower lip. He denies any swelling to his tongue, posterior airway, and denies any difficulty breathing or swallowing. Patient does not take an YESENIA inhibitor medication. Patient was admitted to this hospital Previously secondary to some progressive angioedema that required intubation and a trach. They thought possibly was due to to a beta-shay medication. TRAVEL OUTSIDE OF THE [place] IN LAST 30 DAYS: No - HPI Onset: Other - See above Quality of pain: Other - See above Severity: None Pain Level: Denies Associated symptoms: Other - See above Similar symptoms previously: No Recently seen / treated by doctor/dentist: Yes - Related Data Allergies/Adverse Reactions: typhoid vaccine [Typhoid Vaccine] Allergy (Severe, Verified 04/12/17 14:22) Seizures Past Medical History - Social History Smoking Status: Unknown if Ever Smoked Family History: Reviewed & Not Pertinent, CAD, Other - Mother lived to be 94. Father 68 - Past Medical History Cardiac Medical History: Reports: Hx Atrial Fibrillation, Hx Congestive Heart Failure - Diastolic dysfunction, Hx Coronary Artery Disease, Hx Heart Attack - [place] 08/2011, Hx Hypercholesterolemia, Hx Hypertension Denies: Hx Peripheral Vascular Disease, Hx Pulmonary Embolism, Hx Heart Murmur Pulmonary Medical History: Reports: Hx Bronchitis, Hx Pneumonia, Hx Sleep Apnea - uses CPAP, had throat/chin surgery d/t Sleep Apnea Denies: Hx Asthma, Hx COPD, Hx Respiratory Failure, Hx Tuberculosis Neurological Medical History: Denies: Hx Cerebrovascular Accident, Hx Seizures Endocrine Medical History: Reports: Hx Diabetes Mellitus Type 2. Denies: Hx Graves' Disease, Hx Hyperthyroidism, Hx Hypothyroidism Renal/ Medical History: Denies: Hx Peritoneal Dialysis Malignancy Medical History: Denies Hx Leukemia, Denies Hx Lung Cancer GI Medical History: Reports: Hx Gastroesophageal Reflux Disease, Hx Hiatal Hernia, Hx Ulcer. Denies: Hx Crohn's Disease, Hx Irritable Bowel, Hx Liver Failure, Hx Pancreatitis Musculoskeletal Medical History: Reports Hx Arthritis, Denies Hx Fibromyalgia, Denies Hx Multiple Sclerosis, Denies Hx Muscular Dystrophy Psychiatric Medical History: Reports: Hx Depression, Hx Post Traumatic Stress Disorder Denies: Hx Bipolar Disorder, Hx Dementia, Hx Schizophrenia Traumatic Medical History: Denies: Hx Fractures Infectious Medical History: Denies: Hx HIV Past Surgical History: Reports: Hx Cardiac Catheterization, Hx Coronary Stent - x2 2011, Hx Orthopedic Surgery, Hx Tonsillectomy - and adenoids. Denies: Hx Appendectomy, Hx Bowel Surgery, Hx Cholecystectomy, Hx Colostomy, Hx Coronary Artery Bypass Graft, Hx Gastric Bypass Surgery, Hx Herniorrhaphy, Hx Pacemaker - Immunizations Hx Diphtheria, Pertussis, Tetanus Vaccination: No Hx Pneumococcal Vaccination: 04/14/16 Review of Systems - Review of Systems Constitutional: denies: Fever EENT: denies: Eye discharge, Nose discharge Cardiovascular: denies: Chest pain, Palpitations Respiratory: denies: Short of breath Gastrointestinal: denies: Vomiting Genitourinary: denies: Dysuria Skin: Other - no hives. denies: Rash Neurological/Psychological: Other - no slurred speech -: Yes All other systems reviewed and negative Physical Exam - Vital signs Vitals: Resp Pulse Ox 17 99 05/07/18 10:49 05/07/18 10:49 Interpretation: Normal Notes: Reviewed vital signs and nursing note as charted by RN. CONSTITUTIONAL: Alert and oriented and responds appropriately to questions. Well -appearing; well-nourished HEAD: Normocephalic; atraumatic ENT: Patient has some diffuse swelling to the lower lip only. There was no upper lip swelling. There was no tongue or posterior pharyngeal swelling noted. Patient is swallowing secretions easily NECK: Supple without meningismus; non-tender; no cervical lymphadenopathy, no masses CARD: Regular rate and rhythm; no murmurs; symmetric distal pulses RESP: Normal chest excursion without splinting or tachypnea; breath sounds clear and equal bilaterally; no wheezes, no rhonchi, no rales ABD/GI: Normal bowel sounds; non-distended; soft, non-tender BACK: The back appears normal and is non-tender to palpation EXT: Right knee is in a knee immobilizer post surgical Velcro brace. Strong distal pulses. No lower foot edema SKIN: No acute lesions noted NEURO: CN 2-12 intact; 5/5 bilateral upper and lower extremity strength with sensation intact to light touch PSYCH: The patient's mood and manner are appropriate. Grooming and personal hygiene are appropriate. Course - Re-evaluation Re-evalutation: Given the above history and physical, with family history as recorded, on no YESENIA inhibitors, no medications within the last week that are new, with a slow progressive swelling of the lower lip, I have paged ENT operations asst and left a message on the voicemail and as well as spoke to Jaleel in pharmacy. I do not believe that this is an anaphylactic-like reaction. I believe that this is most likely bradykinin mediated. I will provide steroids and Benadryl and place the patient on the monitor and carefully watch the patient's progression. 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 05/07/18 11:25 Pharmacy called me back and states that they do have Berinert. They do not have ecallinide or Icantibant. I am hesitant to provide FFP given that there was often a transient worsening of the swelling if I have an alternative. I am waiting for ENT to call me back. No change in exam. 05/07/18 11:33 The hospital nursing secretary called me back and states that it was an error and the ENT physician Dr. Robles is not operations asst today. Given therefore that the patient most likely will need observation at an outside hospital given her hospitalist team does not like to admit patients with angioedema without ENT backup, I have called [facility] for both consultation and/or admission given that is where the patient's knee surgery took place. 05/07/18 12:04 I spoke to the instrumentation and controls designer Dr. Card at [facility]. He states that he normally talks to an lithographic platemaker regarding these decisions. No [facility] states that they do not have one operations asst at this time. 05/07/18 12:12 The [place] transfer center called me back and states that the gaming dealer/ pulp drier Dr. Mcgovern. The [place] hospitalist will call me back shortly according to the transfer center. 05/07/18 13:12 Labs as recorded. I attempted to call the daughter via transfer center was not able to get in touch with the database coordinator. I do believe this is a time sensitive issue, with no ENT on staff here, and therefore was able to call and speak directly to Dr. Holbrook at [facility] who has accepted the transfer. I have explained the full history and physical examination as well as the possibility of providing Berinert. He believes unless the patient has any worsening condition, to hold on this medication at this time. I believe this is reasonable. 05/07/18 17:30 I rechecked patient prior to transfer. Lip swelling has improved - Vital Signs Vital signs: Temp Pulse Resp BP Pulse Ox 16 138/85 H 99 05/07/18 17:01 05/07/18 17:00 05/07/18 17:01 - Laboratory Result Diagrams: 05/07/18 11:23 05/07/18 11:23 Laboratory results interpreted by me: 05/07/18 05/07/18 11:23 11:23 WBC 11.2 H Hgb 11.5 L Hct 36.5 L MCV 74 L MCH 23.4 L MCHC 31.4 L RDW 19.9 H Plt Count 547 H ESR 65 H C-React Prot High Sens > 15 H Critical Care Note - Critical Care Note Total time excluding time spent on procedures (mins): 40 Discharge - Discharge Clinical Impression: Angioedema Qualifiers: Encounter type: initial encounter Qualified Code(s): T78.3XXA - Angioneurotic edema, initial encounter Condition: Fair Disposition: [place] Referrals: ZENA FRANCOIS MD [Primary Care Provider] - Follow up as needed
[2018-05-07 11:41] LABS: ABSOLUTE BASOPHILS # (AUTO) 0.1 10^3/uL (0.0-0.2); ABSOLUTE EOSINOPHILS # (AUTO) 0.1 10^3/uL (0.0-0.6); ABSOLUTE LYMPHOCYTES (AUTO) 2.9 10^3/uL (0.5-4.7); ABSOLUTE MONOCYTES (AUTO) 0.9 10^3/uL (0.1-1.4); ABSOLUTE NEUT (AUTO) 7.2 10^3/uL (1.7-8.2); BASOPHILS % (AUTO) 0.5 % (0-2); EOSINOPHILS % (AUTO) 0.8 % (0-6); HEMATOCRIT 36.5 % (37.9-51.0); HEMOGLOBIN 11.5 g/dL (13.5-17.0); LYMPHOCYTES % (AUTO) 25.9 % (13-45); MEAN CORPUSCULAR HEMOGLOBIN 23.4 pg (27.0-33.4); MEAN CORPUSCULAR HGB CONC 31.4 g/dL (32.0-36.0); MEAN CORPUSCULAR VOLUME 74 fl (80-97); PLATELET COUNT 547 10^3/uL (150-450); RED BLOOD COUNT 4.91 10^6/uL (4.35-5.55); RED CELL DISTRIBUTION WIDTH 19.9 % (11.5-14.0); SEGMENTED NEUTROPHILS % (AUTO) 64.8 % (42-78); TOTAL CELLS COUNTED % (AUTO) 100 %; WHITE BLOOD COUNT 11.2 10^3/uL (4.0-10.5)
[2018-05-07 12:01] LABS: ANION GAP 14 (5-19); BLOOD UREA NITROGEN 16 mg/dL (7-20); CALCIUM 9.9 mg/dL (8.4-10.2); CARBON DIOXIDE 25 mmol/L (22-30); CHLORIDE 102 mmol/L (98-107); GLUCOSE 103 mg/dL (75-110); POTASSIUM 4.6 mmol/L (3.6-5.0); SODIUM 141.3 mmol/L (137-145)
[2018-05-07] MEDS ORDERED: FAMOTIDINE INJ/PF 20 MG/2 ML SDV IV ONE (12:03)
[2018-05-07 12:19] LABS: ERYTHROCYTE SEDIMENTATION RATE 65 mm/hr (0-20)
[2018-05-07 17:14] VITALS: BP 138/85
== END 2018-05-07 17:40 | disposition short-term general hospital (02) ==
LOC: ER 10:40
DX: T78.3XXA Angioneurotic edema, initial encounter (principal); Z79.01 Long term (current) use of anticoagulants; Z98.890 Other specified postprocedural states; I48.91 Unspecified atrial fibrillation; I25.10 Atherosclerotic heart disease of native coronary artery without angina pectoris; I10 Essential (primary) hypertension; E11.9 Type 2 diabetes mellitus without complications; Z88.7 Allergy status to serum and vaccine; Z95.5 Presence of coronary angioplasty implant and graft
CPT/HCPCS: 99291; 96374; 96375; 36415; 82962; 86160 ×2; 85025; 85652; 80048; 86141; 86161; J1200; J7512; S0028

== ENCOUNTER 2020-07-09 16:44 | Emergency (ER) | payer MEDICARE, OTHER ==
--- NOTE | 2020-07-09 17:46 | ER Document Report ---
ED Medical Screen (RME) - General Chief Complaint: Chest Pain Stated Complaint: CHEST PAIN Time Seen by Provider: 07/09/20 17:31 Primary Care Provider: ZENA FRANCOIS MD [Primary Care Provider] - Follow up as needed TRAVEL OUTSIDE OF THE [place] IN LAST 30 DAYS: No - HPI Notes: 07/09/20 17:42 64 year old male with a hx of [place] in 2011 x 2 stents, hypertension, hyperlipidemia and diabetes presents today for evaluation of substernal chest pain for 6 months, but has become progressively worse over the last 3 weeks. Patient states the reason why he came to the emergency room today is [facility]. States he has intermittent chest pain throughout the day, does radiate down his left arm his back to his back, denies any nausea, vomiting, fever chills, abdominal pain. He states he does have some shortness of breath with palpitations when he has his cardiac episodes. Patient does follow with Dr. Flores, [employer], states he did have a stress test done a month ago. Has not contacted his [employer] with this chest pain that he has been experiencing for the last 3 weeks to 6 months. I have greeted and performed a rapid initial assessment of this patient. A comprehensive ED assessment and evaluation of the patient, analysis of test results and completion of the medical decision making process will be conducted by additional ED providers. PHYSICAL EXAMINATION: GENERAL: Well-appearing, well-nourished and in no acute distress. HEAD: Atraumatic, normocephalic. EYES: Pupils equal round extraocular movements intact, conjunctiva are normal. NECK: Normal range of motion CV: s1, s2 regular LUNGS: No respiratory distress The patient was evaluated during a global COVID-19 pandemic and that diagnosis was suspected/considered upon their initial presentation. Their evaluation, treatment and testing was consistent with current guidelines for patients who present with complaints or symptoms and may be related to COVID-19. - Related Data Allergies/Adverse Reactions: typhoid vaccine [Typhoid Vaccine] Allergy (Severe, Verified 04/12/17 14:22) Seizures Past Medical History - Past Medical History Cardiac Medical History: Reports: Hx Atrial Fibrillation, Hx Congestive Heart Failure - Diastolic dysfunction, Hx Coronary Artery Disease, Hx Heart Attack - [place] 08/2011, Hx Hypercholesterolemia, Hx Hypertension Denies: Hx Peripheral Vascular Disease, Hx Pulmonary Embolism, Hx Heart Murmur Pulmonary Medical History: Reports: Hx Bronchitis, Hx Pneumonia, Hx Sleep Apnea - uses CPAP, had throat/chin surgery d/t Sleep Apnea Denies: Hx Asthma, Hx COPD, Hx Respiratory Failure, Hx Tuberculosis Neurological Medical History: Denies: Hx Cerebrovascular Accident, Hx Seizures, Hx Parkinson's Disease Endocrine Medical History: Reports: Hx Diabetes Mellitus Type 2. Denies: Hx Graves' Disease, Hx Hyperthyroidism, Hx Hypothyroidism Renal/ Medical History: Denies: Hx Peritoneal Dialysis Malignancy Medical History: Denies Hx Leukemia, Denies Hx Lung Cancer GI Medical History: Reports: Hx Gastroesophageal Reflux Disease, Hx Hiatal Hernia, Hx Ulcer. Denies: Hx Crohn's Disease, Hx Irritable Bowel, Hx Liver Failure, Hx Pancreatitis Musculoskeltal Medical History: Reports Hx Arthritis, Denies Hx Fibromyalgia, Denies Hx Multiple Sclerosis, Denies Hx Muscular Dystrophy, Denies Hx Systemic Lupus Erythematosus Psychiatric Medical History: Reports: Hx Depression, Hx Post Traumatic Stress Disorder Denies: Hx Bipolar Disorder, Hx Dementia, Hx Schizophrenia Traumatic Medical History: Denies: Hx Fractures Infectious Medical History: Denies: Hx HIV Past Surgical History: Reports: Hx Cardiac Catheterization, Hx Coronary Stent - x2 2011, Hx Orthopedic Surgery, Hx Tonsillectomy - and adenoids. Denies: Hx Appendectomy, Hx Bowel Surgery, Hx Cholecystectomy, Hx Colostomy, Hx Coronary Artery Bypass Graft, Hx Gastric Bypass Surgery, Hx Herniorrhaphy, Hx Pacemaker - Immunizations Hx Diphtheria, Pertussis, Tetanus Vaccination: No Physical Exam - Vital signs Vitals: Temp Pulse Resp BP Pulse Ox 98.2 F 70 19 152/89 H 97 07/09/20 16:53 07/09/20 16:53 07/09/20 16:53 07/09/20 16:53 07/09/20 16:53 Course - Vital Signs Vital signs: Temp Pulse Resp BP Pulse Ox 98.2 F 70 19 152/89 H 97 07/09/20 16:53 07/09/20 16:53 07/09/20 16:53 07/09/20 16:53 07/09/20 16:53 Doctor's Discharge - Discharge Referrals: ZENA FRANCOIS MD [Primary Care Provider] - Follow up as needed
[2020-07-09 18:37] LABS: ABSOLUTE BASOPHILS # (AUTO) 0.1 10^3/uL (0.0-0.2); ABSOLUTE EOSINOPHILS # (AUTO) 0.1 10^3/uL (0.0-0.6); ABSOLUTE LYMPHOCYTES (AUTO) 3.4 10^3/uL (0.5-4.7); ABSOLUTE MONOCYTES (AUTO) 0.7 10^3/uL (0.1-1.4); ABSOLUTE NEUT (AUTO) 3.5 10^3/uL (1.7-8.2); EOSINOPHILS % (AUTO) 1.7 % (0-6); HEMATOCRIT 48.8 % (37.9-51.0); HEMOGLOBIN 15.8 g/dL (13.5-17.0); LYMPHOCYTES % (AUTO) 43.8 % (13-45); MEAN CORPUSCULAR HGB CONC 32.4 g/dL (32.0-36.0); MEAN CORPUSCULAR VOLUME 83 fl (80-97); MONOCYTES % (AUTO) 8.9 % (3-13); PLATELET COUNT 229 10^3/uL (150-450); RED BLOOD COUNT 5.86 10^6/uL (4.35-5.55); RED CELL DISTRIBUTION WIDTH 14.3 % (11.5-14.0); SEGMENTED NEUTROPHILS % (AUTO) 44.6 % (42-78); TOTAL CELLS COUNTED % (AUTO) 100 %; WHITE BLOOD COUNT 7.8 10^3/uL (4.0-10.5)
--- NOTE | 2020-07-09 18:39 | RADIOLOGY REPORT (SQ) ---
EXAM DESCRIPTION: CHEST SINGLE VIEW IMAGES COMPLETED DATE/TIME: 07/09/2020 6:04 pm REASON FOR STUDY: chest pain x 3 weeks COMPARISON: 10/09/2016 EXAM PARAMETERS: NUMBER OF VIEWS: One view. TECHNIQUE: Single frontal radiographic view of the chest acquired. RADIATION DOSE: NA LIMITATIONS: None. FINDINGS: LUNGS AND PLEURA: No opacities, masses or pneumothorax. No pleural effusion. MEDIASTINUM AND HILAR STRUCTURES: No masses. Contour normal. HEART AND VASCULAR STRUCTURES: Heart normal in size. Normal vasculature. BONES: No acute findings. HARDWARE: None in the chest. OTHER: No other significant finding. IMPRESSION: NO ACUTE RADIOGRAPHIC FINDING IN THE CHEST. TECHNICAL DOCUMENTATION: JOB ID: [id number] [employer]- All Rights Reserved Reading location - IP/workstation name: [email or web address]
--- NOTE | 2020-07-09 18:48 | EKG REPORT ---
SEVERITY:- OTHERWISE NORMAL ECG - SINUS RHYTHM LOW VOLTAGE IN FRONTAL LEADS : Confirmed by: Gary Gray MD 09-Jul-2020 18:47:51
[2020-07-09 18:54] LABS: ALBUMIN 4.1 g/dL (3.5-5.0); ALKALINE PHOSPHATASE 95 U/L (38-126); ANION GAP 8 (5-19); ASPARTATE AMINO TRANSFERASE 31 U/L (17-59); BILIRUBIN,DIRECT 0.2 mg/dL (0.0-0.4); BILIRUBIN,TOTAL 0.5 mg/dL (0.2-1.3); BLOOD UREA NITROGEN 17 mg/dL (7-20); CALCIUM 9.3 mg/dL (8.4-10.2); CARBON DIOXIDE 25 mmol/L (22-30); CHLORIDE 106 mmol/L (98-107); CREATINE KINASE 323 U/L (55-170); GLUCOSE 102 mg/dL (75-110); POTASSIUM 4.2 mmol/L (3.6-5.0); TOTAL PROTEIN 7.6 g/dL (6.3-8.2)
[2020-07-09 19:07] LABS: CREATINE KINASE MB 2.49 ng/mL (<4.55)
[2020-07-09 19:08] LABS: TROPONIN I < 0.012 ng/mL
--- NOTE | 2020-07-09 22:09 | ER Document Report ---
ED General - General Chief Complaint: Chest Pain Stated Complaint: CHEST PAIN Time Seen by Provider: 07/09/20 17:31 Primary Care Provider: ZENA FRANCOIS MD [NO LOCAL MD] - Follow up as needed TRAVEL OUTSIDE OF THE [place] IN LAST 30 DAYS: No - HPI Notes: 64-year-old male presents with chest pain. Patient reports that he has been having substernal chest pain ongoing for the past 6 months, has noted in the past 3 weeks seems to have been worsening. He states that it feels like a pressure sensation, he will occasionally have palpitations. States that he takes deep breaths and rest which resolves the pain. Episodes are brief. Last occurred at 11 AM today. Patient states that he had a stress test done with Dr. Moya about 1 month ago, he reports he was told it "came out good". At this office visit it was discussed that he should be started on nitrates, however likely this was accidentally forgotten to be prescribed as he did not receive a prescription for this. Patient states that [facility] and was advised to come to the emergency department. He reports compliance with his medications, which does include Eliquis. He denies leg swelling. He reports he has 2 previous stents placed. He is currently chest pain-free. - Related Data Allergies/Adverse Reactions: typhoid vaccine [Typhoid Vaccine] Allergy (Severe, Verified 04/12/17 14:22) Seizures Home Medications: ELIQUIS, METFORMIN, ALPURINOL, ATORVASTATIN, HYDROCHLOROTHIAZIDE, OMEPRAZOLE, METOPROLOL, LATANAPROST, ACETAMINOPHEN Past Medical History - General Information source: Patient - Social History Smoking Status: Former Smoker Family History: Reviewed & Not Pertinent, CAD, Other - Mother lived to be 94. Father 68 - Past Medical History Cardiac Medical History: Reports: Hx Atrial Fibrillation, Hx Congestive Heart Failure - Diastolic dysfunction, Hx Coronary Artery Disease, Hx Heart Attack - PR 08/2011, Hx Hypercholesterolemia, Hx Hypertension Denies: Hx Peripheral Vascular Disease, Hx Pulmonary Embolism, Hx Heart Murmur Pulmonary Medical History: Reports: Hx Bronchitis, Hx Pneumonia, Hx Sleep Apnea - uses CPAP, had throat/chin surgery d/t Sleep Apnea Denies: Hx Asthma, Hx COPD, Hx Respiratory Failure, Hx Tuberculosis Neurological Medical History: Denies: Hx Cerebrovascular Accident, Hx Seizures, Hx Parkinson's Disease Endocrine Medical History: Reports: Hx Diabetes Mellitus Type 2. Denies: Hx Graves' Disease, Hx Hyperthyroidism, Hx Hypothyroidism Renal/ Medical History: Denies: Hx Peritoneal Dialysis Malignancy Medical History: Denies Hx Leukemia, Denies Hx Lung Cancer GI Medical History: Reports: Hx Gastroesophageal Reflux Disease, Hx Hiatal Hernia, Hx Ulcer. Denies: Hx Crohn's Disease, Hx Irritable Bowel, Hx Liver Failure, Hx Pancreatitis Musculoskeletal Medical History: Reports Hx Arthritis, Denies Hx Fibromyalgia, Denies Hx Multiple Sclerosis, Denies Hx Muscular Dystrophy, Denies Hx Systemic Lupus Erythematosus Psychiatric Medical History: Reports: Hx Depression, Hx Post Traumatic Stress Disorder Denies: Hx Bipolar Disorder, Hx Dementia, Hx Schizophrenia Traumatic Medical History: Denies: Hx Fractures Infectious Medical History: Denies: Hx HIV Past Surgical History: Reports: Hx Cardiac Catheterization, Hx Coronary Stent - x2 2011, Hx Orthopedic Surgery, Hx Tonsillectomy - and adenoids. Denies: Hx Appendectomy, Hx Bowel Surgery, Hx Cholecystectomy, Hx Colostomy, Hx Coronary Artery Bypass Graft, Hx Gastric Bypass Surgery, Hx Herniorrhaphy, Hx Pacemaker - Immunizations Hx Diphtheria, Pertussis, Tetanus Vaccination: No Hx Pneumococcal Vaccination: 04/14/16 Review of Systems - Review of Systems Constitutional: No symptoms reported EENT: No symptoms reported Cardiovascular: See HPI Respiratory: denies: Short of breath Gastrointestinal: No symptoms reported Genitourinary: No symptoms reported Male Genitourinary: No symptoms reported Musculoskeletal: No symptoms reported Skin: No symptoms reported Hematologic/Lymphatic: No symptoms reported Neurological/Psychological: No symptoms reported Physical Exam - Vital signs Vitals: Temp Pulse Resp BP Pulse Ox 98.2 F 70 19 152/89 H 97 07/09/20 16:53 07/09/20 16:53 07/09/20 16:53 07/09/20 16:53 07/09/20 16:53 - General General appearance: Appears well, Alert In distress: None - HEENT Head: Normocephalic, Atraumatic Extraocular movements intact: Yes Pupils: PERRL - Respiratory Chest status: Nontender Breath sounds: Normal - Cardiovascular Rhythm: Regular Heart sounds: Normal auscultation - Abdominal Inspection: Obese Tenderness: Nontender - Extremities General lower extremity: No: Edema - Neurological Neuro grossly intact: Yes Cognition: Normal Orientation: AAOx4 - Psychological Associated symptoms: Normal affect - Skin Skin Temperature: Warm Course - Re-evaluation Re-evalutation: 64-year-old male presents with intermittent episodes of chest pressure ongoing for the past 6 months, reportedly had a negative stress test 1 month ago, he does follow with cardiology. He is currently chest pain free. Hemodynamically stable. Heart RRR, lungs are clear, no peripheral edema. Given his history and comorbidities, the story is concerning for cardiac related chest pain, CAD versus possible coronary vasospasm. EKG is nonischemic. His initial EKG is undetectable. Patient was updated on the results. He took aspirin prior to arrival today. 07/09/20 23:03 Repeat troponin hemolyzed. Patient refused additional blood draws he has been stuck several times today. The undetectable troponin was taken greater than 6 hours after his episode of chest pain this morning. Have prescribed nitroglycerin and advised very close follow-up with his billing supervisor. Precautions given, stable at time of discharge. - Vital Signs Vital signs: Temp Pulse Resp BP Pulse Ox 98.3 F 70 17 122/76 100 07/09/20 23:17 07/09/20 16:53 07/09/20 23:17 07/09/20 23:17 07/09/20 23:17 - Laboratory Results Result Diagrams: 07/09/20 18:15 07/09/20 18:15 Laboratory Results Interpreted: 07/09/20 07/09/20 18:15 18:15 RBC 5.86 H RDW 14.3 H Creatine Kinase 323 H Critical Laboratory Results Reviewed: No Critical Results - Radiology Results Critical Radiology Results Reviewed: No Critical Results - EKG Interpretation by Me Additional EKG results interpreted by me: EKG is interpreted by me. Sinus rhythm, rate 68. Narrow QRS, QTC within normal limits. Low voltage in frontal leads. No ST segment elevation or depression. Discharge - Discharge Clinical Impression: Chest pain, unspecified Disposition: HOME, SELF-CARE Instructions: Nitrates ([facility]) Additional Instructions: Please have very close follow-up with your billing supervisor. Have prescribed sublingual nitroglycerin which you may use at onset of chest pain. Please discuss with your billing supervisor whether you should be placed on a long-acting nitrate. Please return to the emergency department for any concerning or worsening symptoms. Prescriptions: Nitroglycerin 0.4 mg SL ASDIR PRN #[id number] [email or web address] PRN Reason: Referrals: ZENA FRANCOIS MD [NO LOCAL MD] - Follow up as needed
[2020-07-09 23:21] VITALS: BP 122/76
== END 2020-07-09 23:23 | disposition home or self-care (01) ==
LOC: ER 16:44
DX: R07.9 Chest pain, unspecified (principal); E78.5 Hyperlipidemia, unspecified; E11.9 Type 2 diabetes mellitus without complications; I48.91 Unspecified atrial fibrillation; I11.0 Hypertensive heart disease with heart failure; I50.9 Heart failure, unspecified; I25.2 Old myocardial infarction; Z79.01 Long term (current) use of anticoagulants; Z79.84 Long term (current) use of oral hypoglycemic drugs
CPT/HCPCS: 36415; 71045; 80053; 82550; 82553; 84443; 84484; 85025; 93005; 93010; 99285